=== PATIENT | female | born 1955 | race Caucasian/White ===

== ENCOUNTER 2017-08-12 19:50 | Outpatient (CLI) | payer OTHER ==
[~2017-08-12 19:50] MED LIST: ALPR.25T PO; ALPR.5T PO; ANTIBIOTIC FOR UTI; ASCO500T20 PO; ASCO500T6 PO; ASP81TEC PO; B-12 INJ; BIOT10TA PO; BIOTIN PO; CALC-656 PO; CALC600T12 PO; CEPH500C PO; CHOL10003 PO; CHOL500044 PO; CRAN1TAB5 PO; CYAN500T52 SL; DESV50TA PO; ENXP40I.4 SQ; ERGO400C PO; FISH1CAP15 PO; FRS325T PO; HYDR-3730 PO; HYDR25CA PO; LEVAQUIN 250 MG; MAGN250T7 PO; METO25TA PO; MULT-904 PO; MULT1TAB63; MULT1TAB69 PO; MULTIVITAMIN PO; NF-ESOM40C PO; NITR-65 PO; OMG1KC PO; POTA99TA21 PO; POTA99TA7 PO; SULF-222 PO; TR1O15 TOP; TYLENOL; VITA-185 PO; VITAMIN B-12 PO; VITAMIN C PO; biotin PO
== END 2017-08-13 06:20 | disposition home or self-care (01) ==
LOC: SLEEP 19:50
PROVIDERS: ATTEND Otolaryngology Otolaryngology/Facial Plastic Surgery
DX: G47.30 Sleep apnea, unspecified (principal); R06.83 Snoring
CPT/HCPCS: 95810

== ENCOUNTER → 2018-06-06 | Outpatient (CLI) | payer OTHER ==
[2018-06-06 09:28] LABS: HEMOGLOBIN 13.1 G/DL (11.5-16.0); MEAN PLATELET VOLUME 10.6 FL (7.4-10.4); RED BLOOD COUNT 4.66 10^6/uL (4.35-5.85); RED CELL DISTRIBUTION WIDTH 14.5 % (10.0-14.5); WHITE BLOOD COUNT 5.3 10^3/uL (4.3-11.0)
[2018-06-06 09:56] LABS: ALANINE AMINOTRANSFERASE 13 U/L (0-55); ALBUMIN 3.8 GM/DL (3.2-4.5); ALKALINE PHOSPHATASE 84 U/L (40-136); BILIRUBIN,TOTAL 0.6 MG/DL (0.1-1.0); BUN/CREATININE RATIO 15; CALCIUM 9.5 MG/DL (8.5-10.1); CARBON DIOXIDE 26 MMOL/L (21-32); CHLORIDE 108 MMOL/L (98-107); CREATININE SERUM 0.68 MG/DL (0.60-1.30); GFR ESTIMATED > 60; GLUCOSE 87 MG/DL (70-105); MAGNESIUM 2.1 MG/DL (1.8-2.4); SODIUM 141 MMOL/L (135-145)
[2018-06-06 10:17] LABS: FREE T4 (FREE THYROXINE) 1.02 NG/DL (0.70-1.48)
== END ==
LOC: LAB 09:02
PROVIDERS: ATTEND Family Medicine
DX: Z09 Encounter for follow-up examination after completed treatment for conditions other than malignant neoplasm (principal); Z98.84 Bariatric surgery status
CPT/HCPCS: 36415; 80053; 82306; 82607; 82728; 83540; 83735; 84134; 84425; 84439; 84443; 85027

== ENCOUNTER 2019-07-12 10:13 | Outpatient (CLI) | payer OTHER ==
[~2019-07-12] VITALS: Ht 160 cm; Wt 125.0 kg
== END 2019-07-12 10:15 | disposition home or self-care (01) ==
LOC: PREOP 10:13
PROVIDERS: ATTEND Surgery
DX: Z01.818 Encounter for other preprocedural examination (principal)

== ENCOUNTER 2019-07-18 06:44 | Day surgery (SDC) | payer OTHER ==
--- NOTE | 2019-07-10 06:14 | HISTORY AND PHYSICAL ---
DATE OF SERVICE: SURGERY DATE: 07/18/2019. ATTENDING PHYSICIAN: Erik Jolly DO HISTORY OF PRESENT ILLNESS: The patient is a 64-year-old female who is known to us. She was initially seen by us in May 2016 for a right lower quadrant abdominal pain. She did notice at that time a bulge in the right lower abdominal quadrant, had grown larger in size, become painful over time. She had had previous ventral abdominal incisional hernias that were repaired two other times that she can remember. She also has a very large midline abdominal incision. There was a CT scan performed, which did show a recurrent ventral abdominal incisional hernia. On 06/02/2016, the patient did undergo an open recurrent ventral abdominal incisional hernia repair with mesh. Findings were a large recurrent ventral abdominal incisional hernia with small bowel within the hernia sac as well as a mild amount of clear serous fluid. She was then seen approximately 2 years after her surgery where she had an open wound that had developed the abdominal wall overlying the previous incision from the hernia repair. At that time, she was started on antibiotics and instructed to proceed with daily dressing changes as well as keeping the area clean and dry. She then followed back up with us where this did seem to be healing and was decreasing in size. Since that time, she has presented back several times for the continued wound to not heal and has underwent conservative management with several different antibiotics as well as a silver nitrate to the wound as well as a debridement of the wound in the office. After the debridement, she did undergo a packing of wound for several days and each time with the antibiotics as well as silver nitrate in the debridement and did appear like a wound would heal; however, this would continue to become reinfected and then the sinus opening to reoccur. On today's visit, the patient reports that once again that approximately 4 to 5 days ago that the wound did become red and then started to become painful. She reports that she did call the office and was started on antibiotics and reports that this then started to drain; however, the redness has improved. She denied any fever, chills or any other symptoms. PAST MEDICAL HISTORY: Morbid obesity, obstructive sleep apnea, COPD, recurrent urinary tract infections, history of bradycardia, anxiety, depression. PAST SURGICAL HISTORY: Laparoscopic Connie-en-Y gastric bypass in 2008, x3 in 1977, 1978, 1979, incisional hernia repair x3, with the last one on 06/02/2016, cholecystectomy. ALLERGIES: No known drug allergies. MEDICATIONS: Multivitamin daily. SOCIAL HISTORY: Previously smoked half pack per week for 10 years. Rare for alcohol. FAMILY HISTORY: Brother and mother with diabetes, father with congestive heart failure. Brother with prostate cancer. Father and brother with hypertension. Vital signs stable. Current weight is 271.6 and 5 feet 3 inches. REVIEW OF SYSTEMS: Well-nourished female, in no acute distress. She is not experiencing any shortness of breath or difficulty breathing. No chest pain, palpitations or diaphoresis. No nausea, vomiting or abdominal pain. She does report a nonhealing wound of the anterior abdominal wall, which currently has clear yellowish drainage. No diarrhea or constipation. No red blood per rectum. No dark tarry stools. No fever or chills. No recent inadvertent weight loss. All other review of systems negative. PHYSICAL EXAMINATION: CHEST: Clear. Good breath sounds bilaterally. HEART: Regular, no murmurs. EXTREMITIES: No lower extremity edema. Negative Homans sign. HEENT: No scleral icterus. No cervical adenopathy. ABDOMEN: Soft, nontender, nondistended. There is a small sinus opening over the previous ventral abdominal incision with some mild erythema and does have a clear serous drainage noted. There does appear to be a good granulation tissue within the sinus tract. However, this does not appear to be healing. This is nontender to palpation. SKIN: Warm, dry and pink. NEUROLOGIC: Awake, alert, oriented x3. ASSESSMENT AND PLAN: A 64-year-old female with a nonhealing wound of the anterior abdominal wall that does have persistent recurrent infections. At this time, it was discussed with the patient about proceeding with exploration and debridement of the abdominal wound as well as possible explantation of the mesh due to the possibility of the mesh being chronically infected. We discussed with her that we have tried conservative management without any success and thus, we will need to proceed with this plan. The risks and benefits of the procedure as well as the procedure and home care instructions were explained to the patient. The patient verbalized understanding of instructions and agrees to this plan. At this time, we will proceed with exploration, debridement of the anterior abdominal wall wound as well as a possible explantation of an infected mesh. Job ID: [id number] DocumentID: [id number] Dictated Date: 07/08/2019 13:45:25 Manager Of Loss Prevention Operations Date: 07/08/2019 14:10:35 Dictated By: EKTA KEE APRN
[~2019-07-18] VITALS: Ht 160 cm; Wt 125.0 kg
[2019-07-18] VITALS (11 sets, daily range): BP systolic 122–194; BP diastolic 59–85
[2019-07-18] MEDS ORDERED: ceFAZolin 2 GM IV Premixed 50 ML IV ONE (07:00)
[2019-07-18] MEDS ORDERED: proPOfol 200 MG/20 ML (DIPRIVAN) VIAL IV ONE (07:24)
[2019-07-18] MEDS ORDERED: ONDANSETRON 4 MG/2 ML (SDV) Z0FRAN ONE (07:24)
[2019-07-18] MEDS ORDERED: LIDOCAINE PF 2% 5 ML (XYLOCAINE) VIAL ONE (07:24)
[2019-07-18] MEDS ORDERED: DEXAMETHASONE 10 MG/ML (DECADRON) 1 ML VIAL ONE (07:24)
[2019-07-18] MEDS ORDERED: fentaNYL INJECTION 100 MCG/2 ML AMP ONE ×2 (07:24→10:50)
[2019-07-18] MEDS ORDERED: MIDAZOLAM 2 MG/2 ML (VERSED) VIAL ONE (07:24)
[2019-07-18] MEDS ORDERED: CATHETER FLUSH 10 ML SYR IV PRN (07:30)
[2019-07-18] MEDS: LACTATED RINGERS 1,000 ML IV PRN ×2 (07:50→10:13)
--- NOTE | 2019-07-18 08:29 | Progress Note-Pre Operative ---
Pre-Operative Progress Note H&P Reviewed The H&P was reviewed, patient examined and no changes noted. Date Seen by Provider: Jul 18, 2019 Time Seen by Provider: 08:25 Date H&P Reviewed: Jul 18, 2019 Time H&P Reviewed: 08:20 Pre-Operative Diagnosis: Recurrent infection, non-healing wound of abd wall inc, poss infected mesh EKTA KEE APRN Jul 18, 2019 08:29
[2019-07-18] MEDS ORDERED: HYDR-3816 PO (08:31)
--- NOTE | 2019-07-18 08:31 | Discharge Inst-Surgical ---
D/C Lap Instructions-KIDO Reconcile Patient Problems Problems Reviewed?: Yes New, Converted, or Re-Newed RX: RX on Chart Follow Up Appt in 2 weeks Activity as tolerated No driving for 24 hours No driving while on pain medications Incentive Spirometry use every 2 hours while awake Regular Diet Symptoms to Report: Fever over 101 degree F, Nausea/Vomiting Infection Signs and Symptoms to report: Increased redness, Foul odor of wound, Increased drainage Bathing instructions: May shower Operative Area Clean/Dry; Keep incision clean/dry If any problems/questions: Contact your physician or go to Emergency Room EKTA KEE APRN Jul 18, 2019 08:31
[2019-07-18] MEDS ORDERED: SEVOFLURANE (ULTANE) 15 ML INHAL SOLN ONE ×7 (09:24→12:41)
[2019-07-18] MEDS ORDERED: BUP/EPI 0.5% 1:200,000 (SENSORCAINE) 30 ML VIAL ONE (09:38)
[2019-07-18] MEDS ORDERED: GLYCOPYRROLATE 0.2 MG/ML (ROBINUL) 2 ML VIAL ONE ×2 (09:47→10:40)
[2019-07-18] MEDS ORDERED: NEOSTIGMINE 3 MG/3 ML VIAL ONE (09:47)
[2019-07-18] MEDS ORDERED: ROCURONIUM 10 MG/ML 5 ML SYRINGE IV ONE (10:40)
[2019-07-18] MEDS ORDERED: KETAMINE/NaCl 50 MG/5 ML SYRINGE (ED ONLY) ONE (10:50)
[2019-07-18] MEDS ORDERED: NS IV 1000 ML 1,000 ML IV SCH (12:11)
--- NOTE | 2019-07-18 12:11 | Progress Note-Post Operative ---
Post-Operative Progess Note Surgeon (s)/Strand Galvanizer (s) Surgeon OMARI DONNELLY MD Strand Galvanizer: sarahi cornell BUILDING SERVICES COORDINATOR Pre-Operative Diagnosis Recurrent infection, non-healing wound of abd wall inc, poss infected mesh Post-Operative Diagnosis infected mesh x2, small bowel adhesions. Procedure & Operative Findings Date of Procedure 07/18/19 Procedure Performed/Findings mesh excisionx2 meshes, lysis of small bowel adhesions, segmental small bowel resection and anastamosis, repair recurrent ventral abd inc hernia. Anesthesia Type GET Estimated Blood Loss Estimated blood loss (mL): minimal Specimens/Packing Specimens Removed mesh x2, small bowel OMARI DONNELLY MD Jul 18, 2019 12:11
[2019-07-18] MEDS ORDERED: diphenhydrAMINE 50 MG/ML INJ (BENADRYL) IV PRN (12:15)
[2019-07-18] MEDS ORDERED: NALOXONE 0.4 MG/ML 1 ML (NARCAN) VIAL IV PRN (12:15)
[2019-07-18] MEDS ORDERED: ONDANSETRON 4 MG/2 ML (SDV) Z0FRAN IV PRN (12:15)
[2019-07-18] MEDS ORDERED: fentaNYL INJECTION 1,000 MCG in NS (IVPB) 80 ML IV SCH (12:15)
[2019-07-18] MEDS ORDERED: diphenhydrAMINE 50 MG/ML INJ (BENADRYL) IVP PRN (12:15)
[2019-07-18] MEDS ORDERED: oxyCODONE 5 MG/5 ML ORAL SOLN (roxiCODONE) 5 ML UDC PO PRN (12:15)
[2019-07-18] MEDS ORDERED: METOCLOPRAMIDE INJ 10 MG/2 ML (REGLAN) IV PRN (12:15)
[2019-07-18] MEDS ORDERED: morphine INJ 10 MG/ML 1ML (SYR OR VIAL) ONE (12:36)
[2019-07-18] MEDS ORDERED: HYDROmorphone 2 MG/ML VIAL (DILAUDID) IV ONE (12:45)
[2019-07-18] MEDS ORDERED: morphine INJ 10 MG/ML 1ML (SYR OR VIAL) IVP ONE (12:45)
[2019-07-18] MEDS ORDERED: ONDANSETRON 4 MG/2 ML (SDV) Z0FRAN IVP PRN (12:45)
[2019-07-18] MEDS: RT-ALBUTEROL SULF 2.5 MG/3 ML PRE-MIX VIAL INH SCH ×3 (15:07→22:15)
[2019-07-18] MEDS ORDERED: FLU QUADRIvalent (5+ YOA) 2019-2020 (AFLURIA) 0.5 ML IM ONE (15:15)
[2019-07-18] MEDS: metroNIDAZOLE 500MG/100ML IVPB 100 ML IV SCH ×2 (15:25→23:38)
[2019-07-18] MEDS: 1/2 NS W/KCL 20 MEQ/L 1,000 ML IV SCH ×2 (15:25→18:13)
--- NOTE | 2019-07-18 17:41 | OPERATIVE REPORT ---
DATE OF SERVICE: 07/18/2019 ATTENDING PRIMARY CARE PHYSICIAN: Erik Jolly DO PREOPERATIVE DIAGNOSIS: Chronically infected mesh. POSTOPERATIVE DIAGNOSES: Chronically infected mesh x2, extensive small bowel adhesions, recurrent ventral abdominal incisional hernia. PROCEDURE: Explantation of mesh x2, lysis of small bowel adhesions(120 minutes), small bowel resection and anastomosis, recurrent ventral abdominal incisional hernia repair primarily. SURGEON: Omari Donnelly MD FIBERGLASS ROLLER: Serafin Junior APRN ANESTHESIA: General endotracheal. ESTIMATED BLOOD LOSS: 100 mL. DISPOSITION: The patient tolerated the procedure well. INDICATIONS: The patient is a 64-year-old female with a history of morbid obesity and multiple medical comorbidities related to obesity. She underwent what appears to be an open Connie-en-Y gastric bypass and states that she did lose weight initially; however, has regained a significant amount of weight back. She has a large midline laparotomy incision. She has undergone a previous hernia repair in the past; however, had reoccurrence. We had repaired this in 2016. She reports that she has had 3 to 4 episodes of inflammation, redness and drainage around the incision site over the past three years. These were treated with antibiotics; however, she would have recurrence. Her signs and symptoms were consistent with an infected mesh. DESCRIPTION OF PROCEDURE: The patient was brought to the operating room, laid supine on the table. After adequate IV pain and sedative medications and general endotracheal intubation, the abdomen was prepped and draped in standard surgical fashion. A 0.5% Marcaine with epinephrine was used to anesthetize the overlying skin in the previous right lateral incision. We opened the skin using a 15 blade. The subcutaneous tissue was then dissected down to the level of the scar tissue and mesh. We then proceeded with meticulous dissection of the mesh, try to preserve as much scar tissue as possible for primary repair. The entire hernia sac was then dissected out using electrocautery as well as Metzenbaum scissors. Once the edges identified and opened, we then proceeded with lysis of adhesions of omentum and small bowel along the mesh. Throughout the tedious process, another mesh was encountered from a previous hernia repair and this was excised in a similar manner. The small bowel was then eviscerated out of the abdomen and examined and there was a significant amount of serosal tears and openings due to the extensive lysis of adhesions off the mesh. It was decided to resect this segment due to the extensive nature of the serosal tears and openings and proceed with [id number] anastomosis, which we performed using a BASILIO 55 mm blue load waldo. The mesentery was then resected using Sonicision. The mesentery was then reapproximated using 3-0 running silk suture. Good hemostasis was observed. The small bowel was then placed back into the abdominal cavity. Good hemostasis was observed. We then proceeded with repair of the recurrent ventral abdominal incisional hernia. With the scar tissue as well as fascia dissected out from the explantation of meshes, we had a good amount of scar tissue as well as fascia to close primarily without any tension. We proceeded with repair of the hernia using a #1 PDS looped running suture transversely approximating the scar tissue and fascia without any tension. Good hemostasis was observed. The subcutaneous tissue was reapproximated using 3-0 Vicryl interrupted sutures. Skin was closed using skin waldo. The wound was then cleaned and covered with sterile dressing. The patient tolerated the procedure well. We will admit her to the floor and proceed with DVT prophylaxis with calf SCDs, early ambulation as well as Lovenox injections. We will also proceed with pain control with a MACHINE GRINDER pump. When she does have some bowel function, we will start a clear liquid diet and advance as tolerated. Job ID: [id number] DocumentID: [id number] Dictated Date: 07/18/2019 12:27:37 Cotton Breeder Date: 07/18/2019 17:40:42 Dictated By: OMARI DONNELLY MD [facility]
[2019-07-18] MEDS: ceFAZolin 2 GM IV Premixed 50 ML IV SCH (18:05)
[2019-07-18] MEDS: ONDANSETRON 4 MG/2 ML (SDV) Z0FRAN IVP SCH ×2 (18:07→23:37)
[2019-07-18] MEDS: METOCLOPRAMIDE INJ 10 MG/2 ML (REGLAN) IVP SCH ×2 (18:07→23:38)
--- NOTE | 2019-07-18 19:08 | Consultation ---
History of Present Illness History of Present Illness Patient Consulted On(carlie/time) 07/18/19 18:55 Time Seen by Provider: 19:04 History of Present Illness Patient had a ventral hernia today for nonhealing wound. Physical is a third hernia surgery. Patient has a history of bradycardia Patient's blood pressure elevated this evening. Patient's blood pressure taken by manual cuff was 156/80. Previous surgeries gastric bypass in 2008, 3 ventral hernias, 3 C-sections, and gallbladder. Patient in sinus rhythm now with no bradycardia. Patient has a history of bradycardia and has a monitor on Allergies and Home Medications Allergies Coded Allergies: No Known Drug Allergies (Unverified , 07/12/19) Home Medications Ascorbic Acid 500 Mg Tablet, 500 MG PO DAILY PRN for FOR COLDS, (Reported) Biotin 10 Mg Tablet, 10 MG PO DAILY, (Reported) Calcium Carbonate 600 Mg Tablet, 600 MG PO DAILY, (Reported) Cholecalciferol (Vitamin D3) 5,000 Unit Tablet, 5,000 UNIT PO DAILY, (Reported) Cyanocobalamin (Vitamin B-12) 500 Mcg Tab.subl, 500 MCG SL DAILY, (Reported) Hydrocodone/Acetaminophen 1 Each Tablet, 1-2 TAB PO Q4H Prescribed by: EKTA KEE on 07/18/19 0831 Multivitamin 1 Each Tablet, 1 TAB PO DAILY, (Reported) Potassium Gluconate 99 Mg Tablet, 99 MG PO DAILY PRN for CRAMPS, (Reported) Patient Home Medication List Home Medication List Reviewed: Yes Past Vsrrggg-Zbcxpy-Nlkfxf Hx Past Med/Social Hx: Reviewed Nursing Past Med/Soc Hx Patient Social History Alcohol Use: Occasionally Uses Number of Drinks Today: II Alcohol Beverage of Choice: Other Recreational Drug Use: No Smoking Status: Never a Smoker Type Used: Cigarettes 2nd Hand Smoke Exposure: No Recent Foreign Travel: No Contact w/Someone Who Travel: No Recent Infectious Disease Expo: No Recent Hopitalizations: No Immunizations Up To Date Date of Influenza Vaccine: Nov 07, 2012 Seasonal Allergies Seasonal Allergies: No Past Medical History Surgeries: Yes (GASTRIC BYPASS, HERNIA (x2), X 3, HEART CATH (-)) Section, Gallbladder Respiratory: Yes (CPAP) Sleep Apnea, COPD Currently Using CPAP: No Cardiac: Yes (Hx Bradycardia as Asymptomatic Sick Sinus Syndrome) Neurological: No Reproductive Disorders: No LIFE ENRICHMENT SPECIALIST History: Menopausal Sexually Transmitted Disease: No Genitourinary: No Gastrointestinal: Yes Abdominal Hernia Musculoskeletal: Yes (MILD) Arthritis Endocrine: No HEENT: Yes (GLASSES, PARTIAL DENTURES) Loss of Vision: Denies Hearing Impairment: Denies Cancer: No Psychosocial: Yes Anxiety Integumentary: No Blood Disorders: No Adverse Reaction/Blood Tranf: No (N/A) Family Medical History Alcoholism Arthritis Atherosclerosis Cancer G8 BROTHER Chest pain 19 FATHER Congenital heart disease 19 FATHER Congestive heart failure 19 MOTHER G8 BROTHER Diabetes mellitus Family history: Arthritis G8 BROTHER Family history: Cardiovascular disease 19 FATHER Family history: Diabetes mellitus 19 MOTHER G8 BROTHER G8 BROTHER G8 BROTHER G8 BROTHER Family history: Hypertension 19 FATHER 19 MOTHER Family history: Osteoporosis 19 MOTHER G8 BROTHER History of - respiratory disease G8 BROTHER Hypertension Myocardial infarction 19 FATHER Myocardial infarction 19 FATHER Prostate cancer G8 BROTHER Psychosocial problem Visual disorder No Pertinent Family Hx Review of Systems-General Constitutional: no symptoms reported EENTM: no symptoms reported Respiratory: no symptoms reported Cardiovascular: other (Bradycardia history, hypertension now) Gastrointestinal: no symptoms reported Genitourinary: no symptoms reported : No Physical Exam-General Problems Physical Exam Vital Signs Vital Signs - First Documented 07/18/19 07:00 Temp 35.5 Pulse 46 Resp 16 B/P (MAP) 150/61 (90) Pulse Ox 94 O2 Delivery Room Air Capillary Refill : Less Than 3 Seconds General Appearance: WD/WN Eyes: Bilateral Eye Normal Inspection HEENT: normal ENT inspection Neck: non-tender, full range of motion Respiratory: lungs clear, no respiratory distress, no accessory muscle use Cardiovascular: regular rate, rhythm, no murmur Gastrointestinal: non tender Assessment/Plan Assessment/Plan Admission Diagnosis/Plan Nonhealing wound. Ventral hernia. Hypertension. Bradycardia Clinical Quality Measures DVT/VTE Risk/Contraindication: Risk Factor Score Per Nursin RFS Level Per Nursing on Admit: 4+=Very High AURELIA ALVAREZ DO Jul 18, 2019 19:08
[2019-07-18 20:04] LABS: HEMOGLOBIN 12.8 G/DL (11.5-16.0); MEAN PLATELET VOLUME 11.4 FL (7.4-10.4); WHITE BLOOD COUNT 10.3 10^3/uL (4.3-11.0)
[2019-07-18 20:14] LABS: CARBON DIOXIDE 22 MMOL/L (21-32); CHLORIDE 107 MMOL/L (98-107); GLUCOSE 155 MG/DL (70-105); POTASSIUM 4.4 MMOL/L (3.6-5.0); SODIUM 144 MMOL/L (135-145)
[2019-07-18 20:26] LABS: BUN/CREATININE RATIO 11; CREATININE SERUM 0.74 MG/DL (0.60-1.30); GFR ESTIMATED > 60
[2019-07-18] MEDS: ENOXAPARIN 40 MG/0.4 ML (LOVENOX) SYR SC SCH (21:53)
[2019-07-19] VITALS: BP 141/63
[2019-07-19] MEDS: ceFAZolin 2 GM IV Premixed 50 ML IV SCH ×2 (01:13→09:26)
[2019-07-19] MEDS: 1/2 NS W/KCL 20 MEQ/L 1,000 ML IV SCH (01:14)
[2019-07-19] MEDS: RT-ALBUTEROL SULF 2.5 MG/3 ML PRE-MIX VIAL INH SCH ×3 (02:17→11:05)
[2019-07-19 04:00] VITALS: BP 143/65
[2019-07-19 05:18] LABS: HEMOGLOBIN 12.1 G/DL (11.5-16.0); MEAN PLATELET VOLUME 11.6 FL (7.4-10.4); RED CELL DISTRIBUTION WIDTH 13.9 % (10.0-14.5); WHITE BLOOD COUNT 10.1 10^3/uL (4.3-11.0)
[2019-07-19 05:32] LABS: BUN/CREATININE RATIO 11; CALCIUM 8.6 MG/DL (8.5-10.1); CARBON DIOXIDE 24 MMOL/L (21-32); CHLORIDE 109 MMOL/L (98-107); GFR ESTIMATED > 60; GLUCOSE 112 MG/DL (70-105); POTASSIUM 4.3 MMOL/L (3.6-5.0); SODIUM 143 MMOL/L (135-145)
[2019-07-19] MEDS: metroNIDAZOLE 500MG/100ML IVPB 100 ML IV SCH (06:08)
[2019-07-19] MEDS: METOCLOPRAMIDE INJ 10 MG/2 ML (REGLAN) IVP SCH ×2 (06:08→12:16)
[2019-07-19] MEDS: ONDANSETRON 4 MG/2 ML (SDV) Z0FRAN IVP SCH ×2 (06:08→12:16)
--- NOTE | 2019-07-19 06:57 | Anesthesia-General Post-Op ---
General Patient Condition Mental Status/LOC: Same as Preop Cardiovascular: Satisfactory Nausea/Vomiting: Absent Respiratory: Satisfactory Pain: Controlled Complications: Absent Post Op Complications Complications None Follow Up Care/Instructions Patient Instructions None needed. Anesthesia/Patient Condition Patient Condition Patient is doing well, no complaints, stable vital signs, no apparent adverse anesthesia problems. No complications reported per nursing. JULIO C SALGUERO CRNA Jul 19, 2019 06:57
[2019-07-19 08:00] VITALS: BP 125/58
--- NOTE | 2019-07-19 08:02 | Progress Note ---
Subjective Time Seen by a Provider: 07:57 Subjective/Events-last exam Patient feeling good this morning. Patient has no complaints. Blood pressure good today. Patient in sinus rhythm at 60 Objective Exam Vital Signs Date Time Temp Pulse Resp B/P (MAP) Pulse Ox O2 Delivery O2 Flow Rate FiO2 07/19/19 07:12 99 Nasal Cannula 2.00 07/19/19 07:00 56 07/19/19 04:00 36.7 55 16 143/65 (91) 97 Nasal Cannula 2.00 07/19/19 02:18 98 Room Air 07/19/19 00:53 56 07/19/19 00:00 36.5 63 20 141/63 (89) 94 Nasal Cannula 2.00 07/18/19 22:16 90 Room Air 07/18/19 21:00 Nasal Cannula 2.00 07/18/19 19:30 97 Nasal Cannula 07/18/19 19:23 36.4 61 20 194/74 (114) 95 Nasal Cannula 2.00 07/18/19 19:02 63 07/18/19 16:44 36.0 62 20 182/77 (112) 95 Nasal Cannula 2.00 07/18/19 15:27 95 Nasal Cannula 2.00 07/18/19 14:33 51 07/18/19 14:00 98 Nasal Cannula 2.00 07/18/19 13:30 OxyMask 2 07/18/19 13:30 22 140/63 (88) 95 Nasal Cannula 2 07/18/19 13:30 36.0 56 16 150/72 (98) 96 Nasal Cannula 2.00 07/18/19 13:25 OxyMask 2 07/18/19 13:20 18 140/63 (88) 95 OxyMask 2 07/18/19 13:10 OxyMask 2 07/18/19 13:10 20 139/59 (85) 95 OxyMask 2 07/18/19 13:00 18 143/63 (89) 95 OxyMask 3 07/18/19 12:55 OxyMask 4 07/18/19 12:50 18 132/59 (83) 95 OxyMask 4 07/18/19 12:40 OxyMask 8 07/18/19 12:40 20 128/65 (86) 95 OxyMask 8 07/18/19 12:30 22 122/85 (97) 95 OxyMask 10 07/18/19 12:26 36.2 20 124/70 (88) 95 OxyMask 10 07/18/19 12:26 OxyMask 10 I & O 07/19/19 06:59 Intake Total 1950 ml Output Total 3125 ml Balance -1175 ml Capillary Refill : Less Than 3 Seconds General Appearance: No Apparent Distress, WD/WN HEENT: Normal ENT Inspection Neck: Full Range of Motion, Normal Inspection Respiratory: Lungs Clear, No Accessory Muscle Use Cardiovascular: Regular Rate, Rhythm Gastrointestinal: non tender Results Lab Laboratory Tests 07/18/19 19:30 07/19/19 04:25 Laboratory Tests 07/18/19 16:27: Glucometer 143H 07/18/19 19:30: White Blood Count 10.3, Red Blood Count 4.59, Hemoglobin 12.8, Hematocrit 41, Mean Corpuscular Volume 88, Mean Corpuscular Hemoglobin 28, Mean Corpuscular Hemoglobin Concent 32, Red Cell Distribution Width 14.0, Platelet Count 214, Mean Platelet Volume 11.4H, Sodium Level 144, Potassium Level 4.4, Chloride Level 107, Carbon Dioxide Level 22, Anion Gap 15H, Blood Urea Nitrogen 8, Creatinine 0.74, Estimat Glomerular Filtration Rate > 60, BUN/Creatinine Ratio 11, Glucose Level 155H, Calcium Level 9.0 07/18/19 20:08: Glucometer 128H 07/19/19 01:09: Glucometer 118H 07/19/19 04:25: White Blood Count 10.1, Red Blood Count 4.34L, Hemoglobin 12.1, Hematocrit 38, Mean Corpuscular Volume 88, Mean Corpuscular Hemoglobin 28, Mean Corpuscular Hemoglobin Concent 32, Red Cell Distribution Width 13.9, Platelet Count 207, Mean Platelet Volume 11.6H, Sodium Level 143, Potassium Level 4.3, Chloride Level 109H, Carbon Dioxide Level 24, Anion Gap 10, Blood Urea Nitrogen 8, Creatinine 0.70, Estimat Glomerular Filtration Rate > 60, BUN/Creatinine Ratio 11, Glucose Level 112H, Calcium Level 8.6 07/19/19 04:58: Glucometer 115H Assessment/Plan Assessment/Plan Assess & Plan/Chief Complaint Nonhealing wound. Ventral hernia. Hypertension. Bradycardia. . 07/19/19. Postop day 1. Patient doing well. Patient voicing no complaints. Bradycardia on the control. Hypertension better. Patient states she's not passing any gas yet Clinical Quality Measures DVT/VTE Risk/Contraindication: Risk Factor Score Per Nursin RFS Level Per Nursing on Admit: 4+=Very High AURELIA ALVAREZ DO Jul 19, 2019 08:02
[2019-07-19] MEDS ORDERED: PANTOPRAZOLE 40 MG (PROTONIX) VIAL IV SCH (09:00)
[2019-07-19] MEDS ORDERED: SENNA W/DOCUSATE (SENOKOT S) TABLET PO SCH (09:00)
[2019-07-19] MEDS: ENOXAPARIN 40 MG/0.4 ML (LOVENOX) SYR SC SCH (09:26)
--- NOTE | 2019-07-19 10:14 | Progress Note ---
Subjective Date Seen by a Provider: Jul 19, 2019 Time Seen by a Provider: 10:00 Subjective/Events-last exam doing well. tolerating clears. ambulating well. had BM today. no fever/chills. Objective Exam Vital Signs Date Time Temp Pulse Resp B/P (MAP) Pulse Ox O2 Delivery O2 Flow Rate FiO2 07/19/19 08:00 36.4 60 22 125/58 (80) 96 Nasal Cannula 2.00 07/19/19 07:12 99 Nasal Cannula 2.00 07/19/19 07:00 56 07/19/19 04:00 36.7 55 16 143/65 (91) 97 Nasal Cannula 2.00 07/19/19 02:18 98 Room Air 07/19/19 00:53 56 07/19/19 00:00 36.5 63 20 141/63 (89) 94 Nasal Cannula 2.00 07/18/19 22:16 90 Room Air 07/18/19 21:00 Nasal Cannula 2.00 07/18/19 19:30 97 Nasal Cannula 07/18/19 19:23 36.4 61 20 194/74 (114) 95 Nasal Cannula 2.00 07/18/19 19:02 63 07/18/19 16:44 36.0 62 20 182/77 (112) 95 Nasal Cannula 2.00 07/18/19 15:27 95 Nasal Cannula 2.00 07/18/19 14:33 51 07/18/19 14:00 98 Nasal Cannula 2.00 07/18/19 13:30 OxyMask 2 07/18/19 13:30 22 140/63 (88) 95 Nasal Cannula 2 07/18/19 13:30 36.0 56 16 150/72 (98) 96 Nasal Cannula 2.00 07/18/19 13:25 OxyMask 2 07/18/19 13:20 18 140/63 (88) 95 OxyMask 2 07/18/19 13:10 OxyMask 2 07/18/19 13:10 20 139/59 (85) 95 OxyMask 2 07/18/19 13:00 18 143/63 (89) 95 OxyMask 3 07/18/19 12:55 OxyMask 4 07/18/19 12:50 18 132/59 (83) 95 OxyMask 4 07/18/19 12:40 OxyMask 8 07/18/19 12:40 20 128/65 (86) 95 OxyMask 8 07/18/19 12:30 22 122/85 (97) 95 OxyMask 10 07/18/19 12:26 36.2 20 124/70 (88) 95 OxyMask 10 07/18/19 12:26 OxyMask 10 I & O 07/19/19 07:00 Intake Total 1950 ml Output Total 3125 ml Balance -1175 ml Capillary Refill : Less Than 3 Seconds General Appearance: No Apparent Distress HEENT: PERRL/EOMI Neck: Full Range of Motion Respiratory: Chest Non Tender, Lungs Clear, Normal Breath Sounds Cardiovascular: Regular Rate, Rhythm Gastrointestinal: normal bowel sounds, soft, other (wound clean/dry) Extremity: Normal Capillary Refill Neurologic/Psychiatric: Alert, Oriented x3 Skin: Normal Color Lymphatic: No Adenopathy Results Lab Laboratory Tests 07/18/19 16:27: Glucometer 143H 07/18/19 19:30: White Blood Count 10.3, Red Blood Count 4.59, Hemoglobin 12.8, Hematocrit 41, Mean Corpuscular Volume 88, Mean Corpuscular Hemoglobin 28, Mean Corpuscular Hemoglobin Concent 32, Red Cell Distribution Width 14.0, Platelet Count 214, Mean Platelet Volume 11.4H, Sodium Level 144, Potassium Level 4.4, Chloride Level 107, Carbon Dioxide Level 22, Anion Gap 15H, Blood Urea Nitrogen 8, Creatinine 0.74, Estimat Glomerular Filtration Rate > 60, BUN/Creatinine Ratio 11, Glucose Level 155H, Calcium Level 9.0 07/18/19 20:08: Glucometer 128H 07/19/19 01:09: Glucometer 118H 07/19/19 04:25: White Blood Count 10.1, Red Blood Count 4.34L, Hemoglobin 12.1, Hematocrit 38, Mean Corpuscular Volume 88, Mean Corpuscular Hemoglobin 28, Mean Corpuscular Hemoglobin Concent 32, Red Cell Distribution Width 13.9, Platelet Count 207, Mean Platelet Volume 11.6H, Sodium Level 143, Potassium Level 4.3, Chloride Level 109H, Carbon Dioxide Level 24, Anion Gap 10, Blood Urea Nitrogen 8, Creatinine 0.70, Estimat Glomerular Filtration Rate > 60, BUN/Creatinine Ratio 11, Glucose Level 112H, Calcium Level 8.6 07/19/19 04:58: Glucometer 115H 07/19/19 08:24: Glucometer 224H Assessment/Plan Assessment/Plan Assess & Plan/Chief Complaint s/p excision infected mesh x2, small bowel segmental resection. ambulating well and having bowel fxn. tolerating clears. pain controlled. will advance to dys3 diet and start PO meds. will need cardiology f/u Clinical Quality Measures DVT/VTE Risk/Contraindication: Risk Factor Score Per Nursin RFS Level Per Nursing on Admit: 4+=Very High OMARI DONNELLY MD Jul 19, 2019 10:14
[2019-07-19 12:00] VITALS: BP 154/66
[2019-07-19] MEDS ORDERED: FLU QUADRIvalent (5+ YOA) 2019-2020 (AFLURIA) 0.5 ML IM ONE (12:07)
[2019-07-19] MEDS ORDERED: ONDANSETRON 4 MG/2 ML (SDV) Z0FRAN IVP PRN (12:15)
[2019-07-19] MEDS ORDERED: METOCLOPRAMIDE INJ 10 MG/2 ML (REGLAN) IVP PRN (12:15)
--- NOTE | 2019-07-19 13:38 | NUR ---
RD ASSESSMENT PMHx: RUBEN; COPD; UTI; Connie-en-Y (2008) PT INTERACTION: Pt was awake and pleasant during nutrition assessment. Pt states current appetite is "fine" and has been for sometime. Pt states following a regular diet at home, and has no current issues with chewing/swallowing at this time. Pt states no recent issues with n/v/c/d at this time. Pt states last BM was 07/19 and it was loose stools. Pt states no recent wt changes. Note unable to determine recent wt hx, per chart review. Note pt has abd wound, per chart review. Upon visual exam, pt appears to be well nourished with no visible signs of muscle/fat wasting and BMI of 48.8. ABNORMAL NUTRITION-RELATED LAB VALUES: glu 112 (H); Cl 109 (H) Est. kcal needs: 4329-2657 kcal (15-18 kcal/kg) Est. Pro needs: 125-150 g Pro (1.0-1.2 g Pro/kg) PES STATEMENT: Inadequate protein intake (NI-5.6.1) related to increased protein needs as evidenced by wound (abd) INTERVENTION: Continue with current diet order of DYS3 Advanced diet. Add Ensure HP to meals BID. Provides 160 kcal and 16 g Pro per serving, for perceived benefit to wound healing. MONITOR/EVALUATE: PO Intake; Supplement Tolerance; Wound Status; Plan of Care; Hydration Status; Weight Status; Lab Values Haven Suárez, MS, RD, LD Ext. [phone]
[2019-07-19 14:40] VITALS: BP 154/66
== END 2019-07-19 14:30 | disposition home or self-care (01) ==
LOC: SDC 06:44 → 4TH 13:20 → SDC 07-19 14:30
PROVIDERS: ATTEND Surgery
DX: K43.2 Incisional hernia without obstruction or gangrene (principal); K66.0 Peritoneal adhesions (postprocedural) (postinfection); K52.9 Noninfective gastroenteritis and colitis, unspecified; L02.211 Cutaneous abscess of abdominal wall; E66.01 Morbid (severe) obesity due to excess calories; Z68.42 Body mass index [BMI] 45.0-49.9, adult; G47.33 Obstructive sleep apnea (adult) (pediatric); J44.9 Chronic obstructive pulmonary disease, unspecified; N39.0 Urinary tract infection, site not specified; F41.9 Anxiety disorder, unspecified; F32.9 Major depressive disorder, single episode, unspecified; Z90.49 Acquired absence of other specified parts of digestive tract; Z87.891 Personal history of nicotine dependence; Z83.3 Family history of diabetes mellitus; Z82.49 Family history of ischemic heart disease and other diseases of the circulatory system; Z80.42 Family history of malignant neoplasm of prostate; Z79.899 Other long term (current) drug therapy
CPT/HCPCS: 36415; 80048; 82962; 85027; 87081; 88300; 88304; 88307; 93005; 94640; 94664; 94760

== ENCOUNTER 2019-07-27 18:22 | Emergency (ER) | payer OTHER ==
[~2019-07-27] VITALS: Ht 160 cm; Wt 122.1 kg
[~2019-07-27 18:22] MED LIST changes: +HYDR-3816 PO
--- NOTE | 2019-07-27 18:40 | ED Integumentary General ---
General Chief Complaint: Skin/Wound Problems Stated Complaint: REDNESS AROUND INCISION Nursing Triage Note: Pt to ED with concern that hernia surgery incision is infected. Pt reports having surgery with Dr. Abbasi on last week. Incision is hot and red around waldo. Pt reports pain to area. Source: patient Exam Limitations: no limitations History of Present Illness Date Seen by Provider: Jul 27, 2019 Time Seen by Provider: 18:39 Initial Comments To ER with redness around her incision, she had mesh removal and hernia repair here by Dr. Abbasi on 07/18/19, about 2-3 days ago she noticed some redness around this. Timing/Duration: just prior to arrival Severity: moderate Associated Symptoms: denies symptoms Allergies and Home Medications Allergies Coded Allergies: No Known Drug Allergies (Unverified , 07/12/19) Home Medications Ascorbic Acid 500 Mg Tablet, 500 MG PO DAILY PRN for FOR COLDS, (Reported) Biotin 10 Mg Tablet, 10 MG PO DAILY, (Reported) Calcium Carbonate 600 Mg Tablet, 600 MG PO DAILY, (Reported) Cholecalciferol (Vitamin D3) 5,000 Unit Tablet, 5,000 UNIT PO DAILY, (Reported) Clindamycin HCl 300 Mg Capsule, 300 MG PO TID Prescribed by: TING HERNANDEZ on 07/27/192005 Cyanocobalamin (Vitamin B-12) 500 Mcg Tab.subl, 500 MCG SL DAILY, (Reported) Hydrocodone/Acetaminophen 1 Each Tablet, 1-2 TAB PO Q4H Prescribed by: EKTA KEE on 07/18/19 0831 Multivitamin 1 Each Tablet, 1 TAB PO DAILY, (Reported) Potassium Gluconate 99 Mg Tablet, 99 MG PO DAILY PRN for CRAMPS, (Reported) Patient Home Medication List Home Medication List Reviewed: Yes Review of Systems Review of Systems Constitutional: see HPI; No chills, No fever EENTM: see HPI Respiratory: no symptoms reported Cardiovascular: no symptoms reported Genitourinary: no symptoms reported Musculoskeletal: no symptoms reported Skin: no symptoms reported Psychiatric/Neurological: No Symptoms Reported Endocrine: No Symptoms Reported Hematologic/Lymphatic: No Symptoms Reported Past Suxgxzw-Xnkhvi-Xauhpk Hx Patient Social History Alcohol Beverage of Choice: Other Type Used: Cigarettes 2nd Hand Smoke Exposure: No Recent Foreign Travel: No Contact w/Someone Who Travel: No Recent Infectious Disease Expo: No Recent Hopitalizations: No Immunizations Up To Date Date of Influenza Vaccine: Nov 07, 2012 Seasonal Allergies Seasonal Allergies: No Past Medical History Surgeries: Yes (GASTRIC BYPASS, HERNIA (x2), X 3, HEART CATH (-)) Section, Gallbladder Respiratory: Yes (CPAP) Sleep Apnea, COPD Currently Using CPAP: No Cardiac: Yes (Hx Bradycardia as Asymptomatic Sick Sinus Syndrome) Neurological: No 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 Sexually Transmitted Disease: No Genitourinary: No Gastrointestinal: Yes Abdominal Hernia Musculoskeletal: Yes (MILD) Arthritis Endocrine: No HEENT: Yes (GLASSES, PARTIAL DENTURES) Loss of Vision: Denies Hearing Impairment: Denies Cancer: No Psychosocial: Yes Anxiety Integumentary: No Blood Disorders: No Adverse Reaction/Blood Tranf: No (N/A) Family Medical History Alcoholism Arthritis Atherosclerosis Cancer G8 BROTHER Chest pain 19 FATHER Congenital heart disease 19 FATHER Congestive heart failure 19 MOTHER G8 BROTHER Diabetes mellitus Family history: Arthritis G8 BROTHER Family history: Cardiovascular disease 19 FATHER Family history: Diabetes mellitus 19 MOTHER G8 BROTHER G8 BROTHER G8 BROTHER G8 BROTHER Family history: Hypertension 19 FATHER 19 MOTHER Family history: Osteoporosis 19 MOTHER G8 BROTHER History of - respiratory disease G8 BROTHER Hypertension Myocardial infarction 19 FATHER Myocardial infarction 19 FATHER Prostate cancer G8 BROTHER Psychosocial problem Visual disorder No Pertinent Family Hx Physical Exam Vital Signs Vital Signs - First Documented 07/27/19 18:23 Temp 37.0 Pulse 66 Resp 15 B/P (MAP) 143/54 (83) Pulse Ox 98 O2 Delivery Room Air Capillary Refill : Less Than 3 Seconds General Appearance: WD/WN, no apparent distress Neck: non-tender, full range of motion Respiratory: no respiratory distress, no accessory muscle use Gastrointestinal: normal bowel sounds, soft, other (midline abdominal incision closed with waldo which are still intact, there is a minute amount of serosanguineous drainage from the middle of this, there is about 6 cm of erythema extending superiorly and inferiorly from this incision. I'm unable to express any material with pressing around the incision.) Neurologic/Psychiatric: alert, normal mood/affect, oriented x 3 Skin: normal color, warm/dry Procedures/Interventions I&D : Packing/Drain: Idoform 1 Progress After speaking with Dr. Harrison, he recommended removing a few of the waldo, the wound edges, evacuating the fluid collection irrigating and packing. I did this, 6 waldo were removed, 1% lidocaine without epinephrine was injected locally at the incision edges and curved hemostats were used to gently separate the skin, cloudy fluid was suctioned out using Hastings suction totaling 120 mL. Wound was then irrigated with 60 mL of chlorhexidine/saline solution, wound edges were left open and his cavity was packed with 1 inch plain packing and covered with gauze. Patient tolerated very well. Progress/Results/Core Measures Results/Orders Lab Results Laboratory Tests Test 07/27/19 18:43 Range/Units White Blood Count 8.6 4.3-11.0 10^3/uL Red Blood Count 4.15 L 4.35-5.85 10^6/uL Hemoglobin 11.5 11.5-16.0 G/DL Hematocrit 36 35-52 % Mean Corpuscular Volume 87 80-99 FL Mean Corpuscular Hemoglobin 28 25-34 PG Mean Corpuscular Hemoglobin Concent 32 32-36 G/DL Red Cell Distribution Width 13.6 10.0-14.5 % Platelet Count 330 130-400 10^3/uL Mean Platelet Volume 10.6 H 7.4-10.4 FL Neutrophils (%) (Auto) 76 H 42-75 % Lymphocytes (%) (Auto) 16 12-44 % Monocytes (%) (Auto) 7 0-12 % Eosinophils (%) (Auto) 1 0-10 % Basophils (%) (Auto) 0 0-10 % Neutrophils # (Auto) 6.5 1.8-7.8 X 10^3 Lymphocytes # (Auto) 1.3 1.0-4.0 X 10^3 Monocytes # (Auto) 0.6 0.0-1.0 X 10^3 Eosinophils # (Auto) 0.1 0.0-0.3 10^3/uL Basophils # (Auto) 0.0 0.0-0.1 10^3/uL Sodium Level 142 135-145 MMOL/L Potassium Level 3.7 3.6-5.0 MMOL/L Chloride Level 106 98-107 MMOL/L Carbon Dioxide Level 23 21-32 MMOL/L Anion Gap 13 5-14 MMOL/L Blood Urea Nitrogen 7 7-18 MG/DL Creatinine 0.71 0.60-1.30 MG/DL Estimat Glomerular Filtration Rate > 60 BUN/Creatinine Ratio 10 Glucose Level 99 70-105 MG/DL Calcium Level 9.0 8.5-10.1 MG/DL My Orders Orders - TING HERNANDEZ APRN Cbc With Automated Diff (07/27/19 18:37) Basic Metabolic Panel (07/27/19 18:37) Ed Iv/Invasive Line Start (07/27/19 18:37) Ct Abdomen/Pelvis W (07/27/19 18:37) Iohexol Injection (Omnipaque 350 Mg/Ml 1 (07/27/19 18:45) Received Contrast (Hold Metformin- Contr (07/27/19 18:45) Ns (Ivpb) (Sodium Chloride 0.9% Ivpb Bag (07/27/19 18:45) Fentanyl Injection (Sublimaze Injection (07/27/19 19:37) Wound Culture (07/27/19 20:00) Clindamycin 900 Mg/50 Ml Ivpb (Cleocin P (07/27/19 20:00) Medications Given in ED Current Medications Medications Dose Ordered Sig/Garth Route Start Time Stop Time Status Last Admin Dose Admin Fentanyl Citrate 100 mcg STK-MED ONCE .ROUTE 07/27/19 19:37 07/27/19 19:38 DC 07/27/19 19:39 50 MCG Iohexol 100 ml ONCE ONCE IV 07/27/19 18:45 07/27/19 18:55 DC 07/27/19 19:16 100 ML Sodium Chloride 100 ml ONCE ONCE IV 07/27/19 18:45 07/27/19 18:55 DC 07/27/19 19:16 80 ML Vital Signs/I&O 07/27/19 18:23 Temp 37.0 Pulse 66 Resp 15 B/P (MAP) 143/54 (83) Pulse Ox 98 O2 Delivery Room Air Blood Pressure Mean: 83 POS Diagnostic Imaging Diagonstic Imaging: CT Comments the abdomen and pelvis after the uneventful administration of intravenous contrast. All CT scans use one or more of the following dose optimizing techniques: automated exposure control, MA and/or KvP adjustment based on a patient size and exam type, or iterative reconstruction. HISTORY: Recent surgery with diarrhea and concern for infection COMPARISON: 06/01/2016 FINDINGS: Limited views of the lower thorax are unremarkable. The liver is normal without focal lesion. There is no biliary ductal dilation. Gallbladder is surgically absent. Pancreas is normal. Spleen is normal. Adrenal glands are normal. There has been a gastric bypass. The kidneys are normal. There is no hydronephrosis. Urinary bladder is normal. Surgical device is present within the endometrium. There are postsurgical changes of ventral abdominal hernia repair. There is a 10 x 3 x 5 cm fluid and gas collection underneath the incision. There are no dilated loops of large or small bowel. No obstruction or inflammation. No free fluid or air. No abdominal or pelvic lymphadenopathy. Aorta is normal in caliber without aneurysm. There are no suspicious osseus lesions. IMPRESSION: 1. Fluid and gas collection underneath the incision measuring 10 x 3 x 5 cm. Dictated by: Dictated on workstation # [id number] Dict: 07/27/191920 Trans: 07/27/191953 [facility] [id number] Interpreted by: PERFECTO KRAMER MD Electronically signed by: PERFECTO KRAMER MD 07/27/191953 Departure Communication (Admissions) I spoke with Dr. Harrison from surgery, recommends removing a few waldo, aspirating fluid, irrigating and packing. Patient is agreeable with this plan. I did offer her admission but she states she would prefer to go home. We will do a dose of clindamycin IV here, she denies nausea vomiting fevers chills or any other systemic symptoms and her CBC and chemistry is normal in appearance, no reason she couldn't go home to do outpatient antibiotics and return for any worsening. She would prefer to go home. I will also have her return tomorrow for a wound check. Impression Primary Impression: Abdominal wall abscess Disposition: HOME, SELF-CARE Condition: Stable Departure-Patient Inst. Decision time for Depature: 20:04 Referrals: AURELIA ALVAREZ DO (PCP/Family) Primary Care Physician Patient Instructions: Wound Care (DC) Add. Discharge Instructions: 1. Please return to the emergency room sometime tomorrow between 11 AM and 11 PM for wound check. Return to ER and before then for any fevers nausea vomiting worsening redness or any pain. Call Dr. Abbasi on Monday to make an appointment to be seen for follow-up preferably on Monday or Monday. All discharge instructions reviewed with patient and/or family. Voiced understanding. Scripts Clindamycin HCl (Clindamycin HCl) 300 Mg Capsule 300 MG PO TID, #21 CAP Prov: TING HERNANDEZ APRN 07/27/19 Copy Copies To 1: OMARI ABBASI MD, PETER J APRN Jul 27, 2019 18:40 POS
[2019-07-27] MEDS ORDERED: NS 100 ML (IVPB) BAG IV ONE (18:45)
[2019-07-27] MEDS ORDERED: HOLD METFORMIN - RECEIVED CONTRAST 20 ML VIAL IV SCH (18:45)
[2019-07-27] MEDS ORDERED: IOHEXOL 350 MG/ML 100 ML (OMNIPAQUE 350) VIAL IV ONE (18:45)
[2019-07-27 19:00] LABS: BASOPHILS % (AUTO) 0 % (0-10); EOSINOPHILS # (AUTO) 0.1 10^3/uL (0.0-0.3); EOSINOPHILS % (AUTO) 1 % (0-10); HEMATOCRIT 36 % (35-52); HEMOGLOBIN 11.5 G/DL (11.5-16.0); LYMPHOCYTES # (AUTO) 1.3 X 10^3 (1.0-4.0); LYMPHOCYTES % (AUTO) 16 % (12-44); MEAN CORPUSCULAR HEMOGLOBIN 28 PG (25-34); MEAN CORPUSCULAR HGB CONC 32 G/DL (32-36); MEAN CORPUSCULAR VOLUME 87 FL (80-99); MEAN PLATELET VOLUME 10.6 FL (7.4-10.4); MONOCYTES # (AUTO) 0.6 X 10^3 (0.0-1.0); MONOCYTES % (AUTO) 7 % (0-12); NEUTROPHILS # (AUTO) 6.5 X 10^3 (1.8-7.8); NEUTROPHILS % (AUTO) 76 % (42-75); PLATELET COUNT 330 10^3/uL (130-400); RED CELL DISTRIBUTION WIDTH 13.6 % (10.0-14.5); WHITE BLOOD COUNT 8.6 10^3/uL (4.3-11.0)
[2019-07-27 19:15] LABS: BUN/CREATININE RATIO 10; CARBON DIOXIDE 23 MMOL/L (21-32); CHLORIDE 106 MMOL/L (98-107); CREATININE SERUM 0.71 MG/DL (0.60-1.30); GFR ESTIMATED > 60; GLUCOSE 99 MG/DL (70-105); POTASSIUM 3.7 MMOL/L (3.6-5.0); SODIUM 142 MMOL/L (135-145)
--- NOTE | 2019-07-27 19:31 | Diagnostic Imaging Report ---
EXAMINATION: CT Abdomen and Pelvis with intravenous contrast. TECHNIQUE: Multiple contiguous axial images were obtained through the abdomen and pelvis after the uneventful administration of intravenous contrast. All CT scans use one or more of the following dose optimizing techniques: automated exposure control, MA and/or KvP adjustment based on a patient size and exam type, or iterative reconstruction. HISTORY: Recent surgery with diarrhea and concern for infection COMPARISON: 06/01/2016 FINDINGS: Limited views of the lower thorax are unremarkable. The liver is normal without focal lesion. There is no biliary ductal dilation. Gallbladder is surgically absent. Pancreas is normal. Spleen is normal. Adrenal glands are normal. There has been a gastric bypass. The kidneys are normal. There is no hydronephrosis. Urinary bladder is normal. Surgical device is present within the endometrium. There are postsurgical changes of ventral abdominal hernia repair. There is a 10 x 3 x 5 cm fluid and gas collection underneath the incision. There are no dilated loops of large or small bowel. No obstruction or inflammation. No free fluid or air. No abdominal or pelvic lymphadenopathy. Aorta is normal in caliber without aneurysm. There are no suspicious osseus lesions. IMPRESSION: 1. Fluid and gas collection underneath the incision measuring 10 x 3 x 5 cm. Dictated by: Dictated on workstation # [id number]
[2019-07-27] MEDS ORDERED: fentaNYL INJECTION 100 MCG/2 ML AMP ONE (19:37)
[2019-07-27] MEDS ORDERED: CLINDAMYCIN 900 MG/50 ML IVPB 50 ML IV ONE (20:00)
--- NOTE | 2019-07-27 20:00 | NUR ---
193- REDDENED AREA ON ABDOMEN MARKED BY Julia HERNANDEZ APRN. 1939- 50MCG FENTANYL GIVEN IVP PER Julia HERNANDEZ APRN VERBAL ORDERS. 1944- 6 MARIAN REMOVED FROM ABD INCISION BY Julia HERNANDEZ APRN. 90 CC DRAINAGE SUCTIONED FROM ABD PLUS UNKNOWN AMOUNT DRAINED TO GAUZE. 1950- WOUND CX OBTAINED FROM [facility] BY Julia HERNANDEZ APRN. 2000- 1 INCH PACKING PLACED. SITE COVERED WITH 4X4 GAUZE AND TAPE DRSG. Addendum: 07/27/19 at 2018 by YUSEF DISPOSABLE SUTURE SET USED BY Julia HERNANDEZ APRN FOR PROCEDURE.
[2019-07-27] MEDS ORDERED: CLIN300C11 PO (20:06)
[2019-07-27] MEDS ORDERED: RX-CLINDAMYCIN 150 MG (CLEOCIN) CAP PPK#4 PO STA (20:06)
[2019-07-27 20:33] VITALS: BP 137/37
--- OUTSIDE RECORDS SUMMARY | 2019-08-20 02:11 | XMS REPORT | Continuity of Care Document ---
Author Organization Unknown POS Address Unknown SP Phone Unavailable SP Allergies Active Description Code Type Severity POS Reaction Onset Reported/Identified POS to Patient Clinical Status POS Yes NKANo Known Allergies NKA Miscellaneous SP Unknown N/A 04/15/2007 SP SP Yes No Known Drug Allergies [id number] Drug SP Unknown N/A 07/12/2019 SP SP Medications There is no data. Problems Date Dx Coded Attending Type Code POS Diagnosed By POS 06/19/2010 Ot 278.01 MOR BID OBESITY SP SP 06/19/2010 Ot 300.4 DYST HYMIC DISORDER SP SP 06/19/2010 Ot 327.23 OBS TRUCTIVE SLEEP SPAPNEA (ADULT) (PEDIATR SP 06/19/2010 Ot 401.9 HYPE RTENSION NOS SP SP 06/19/2010 Ot 496 CHR AI RWAY OBSTRUCT SP SP 06/19/2010 Ot 530.81 ESO PHAGEAL REFLUX SP SP 06/19/2010 Ot V15.82 HIS TORY OF SP USE SP 06/19/2010 Ot V58.69 OTH SP USE SP 06/19/2010 Ot V85.4 BODY MASS INDEX 40 SPAND OVER, ADULT SP 11/03/2010 Ot 305.1 SP 11/03/2010 Ot 416.8 SP 11/03/2010 Ot 530.81 SP 11/03/2010 Ot 786.09 SP 11/03/2010 Ot 786.50 SP 11/03/2010 Ot V58.66 SP 11/03/2010 Ot V58.69 SP 07/16/2011 Ot 276.8 HYPO POTASSEMIA SP SP 07/16/2011 Ot 278.01 MOR BID OBESITY SP SP 07/16/2011 Ot 300.4 DYST HYMIC DISORDER SP SP 07/16/2011 Ot 401.9 HYPE RTENSION NOS SP SP 07/16/2011 Ot 416.8 CHR PULMON HEART SP NEC SP 07/16/2011 Ot 427.89 CAR DIAC SP NEC SP 07/16/2011 Ot 496 CHR AI RWAY OBSTRUCT SP SP 07/16/2011 Ot 552.21 OBS TR INCISIONAL SP SP 07/16/2011 Ot 568.0 RENU TONEAL SP SP 07/16/2011 Ot 780.57 UNS PECIFIED SLEEP SPAPNEA SP 07/16/2011 Ot V15.82 HIS TORY OF SP USE SP 07/16/2011 Ot V64.41 LAP AROSCOPIC SP PROC CONVERTED TO SP 07/16/2011 Ot V85.42 BOD Y MASS INDEX SP49.9, ADULT SP 08/26/2011 Ot 278.01 MOR BID OBESITY SP SP 08/26/2011 Ot 300.00 ANX IETY STATE NOS SP SP 08/26/2011 Ot 311 DEPRES SIVE DISORDER SP SP 08/26/2011 Ot 327.23 OBS TRUCTIVE SLEEP SPAPNEA (ADULT) (PEDIATR SP 08/26/2011 Ot 401.9 HYPE RTENSION NOS SP SP 08/26/2011 Ot 416.8 CHR PULMON HEART SP NEC SP 08/26/2011 Ot 427.89 CAR DIAC SP NEC SP 08/26/2011 Ot 496 CHR AI RWAY OBSTRUCT SP SP 08/26/2011 Ot 998.13 SER TEODORO COMPLICAT SP PROC SP 08/26/2011 Ot V15.82 HIS TORY OF SP USE SP 08/26/2011 Ot V58.66 GUSTAVO G-TERM SP USE OF ASPIRIN SP 08/26/2011 Ot V58.69 OTH SP USE SP 08/26/2011 Ot V85.42 BOD Y MASS INDEX SP49.9, ADULT SP 11/18/2011 Ot 327.23 OBS TRUCTIVE SLEEP SPAPNEA (ADULT) (PEDIATR SP 11/30/2011 Ot 427.89 CAR DIAC SP NEC SP 10/22/[address] PAIN NOS SP SP 10/22/[address] PAIN NEC SP SP 11/07/2012 Ot 272.4 HYPE RLIPIDEMIA SP SP 11/07/2012 Ot 278.01 MOR BID OBESITY SP SP 11/07/2012 Ot 401.9 HYPE RTENSION NOS SP SP 11/07/2012 Ot 427.81 SIN OATRIAL NODE SP SP 11/07/2012 Ot 496 CHR AI RWAY OBSTRUCT SP SP 11/07/[address] PAIN NOS SP SP 11/07/2012 Ot 794.30 ABN CARDIOVASC SP NOS SP 11/07/2012 Ot V58.69 OTH SP USE SP 11/07/2012 Ot V85.41 BOD Y MASS INDEX SP44.9, ADULT SP 04/19/2014 AURELIA ALVAREZ DO Ot 427.81 SP SINOATRIAL NODE DYSFUNCT SP 04/19/2014 AURELIA ALVAREZ DO Ot 496 SP CHR AIRWAY OBSTRUCT NEC SP 04/19/2014 AURELIA ALVAREZ DO Ot 780.79 SP OTH MALAISE FATIGUE SP 09/05/2015 Ot 786.50 SP 09/05/2015 Ot 786.50 SP 09/05/2015 Ot 786.05 SP 09/05/2015 Ot 416.8 SP 09/05/2015 Ot 579.3 SP 09/05/2015 Ot V67.09 SP 09/05/2015 Ot 427.89 SP 09/05/2015 Ot 786.09 SP 09/05/2015 Ot 786.50 SP 09/05/2015 Ot 397.0 SP 09/05/2015 Ot 424.0 SP 09/05/2015 Ot 786.09 SP 09/05/2015 Ot 786.50 SP 09/05/2015 Ot 579.3 SP 09/05/2015 AURELIA ALVAREZ DO Ot 579.3 SP SP 09/05/2015 PRIYANK HUTCHINS Ot F32.9 SP MAJOR DEPRESSIVE DISORDER, SINGLE EPISOD SP 09/05/2015 PRIYANK HUTCHINS Ot N39.0 SP URINARY TRACT INFECTION, SITE NOT SPECIF SP 09/05/2015 PRIYANK HUTCHINS Ot R00.1 SP BRADYCARDIA, UNSPECIFIED SP 09/05/2015 PRIYANK HUTCHINS Ot Z63.79 SP OTHER STRESSFUL LIFE EVENTS AFFECTING FA SP 09/12/2015 Ot 786.50 SP 09/12/2015 Ot 786.50 SP 09/12/2015 Ot 786.05 SP 09/12/2015 Ot 416.8 SP 09/12/2015 Ot 579.3 SP 09/12/2015 Ot V67.09 SP 09/12/2015 Ot 427.89 SP 09/12/2015 Ot 786.09 SP 09/12/2015 Ot 786.50 SP 09/12/2015 Ot 397.0 SP 09/12/2015 Ot 424.0 SP 09/12/2015 Ot 786.09 SP 09/12/2015 Ot 786.50 SP 09/12/2015 Ot 579.3 SP 09/12/2015 AURELIA ALVAREZ DO Ot 579.3 SP SP 06/01/2016 Ot 416.8 CHR PULMON HEART SP NEC SP 06/01/[address] POSTOP SP SP 06/01/2016 Ot V67.09 MIN STEVE FOLLOW- SP OTHER SURGERY SP 06/01/2016 Ot 427.89 CAR DIAC SP NEC SP 06/01/2016 Ot 786.09 RES PIRATORY SP NEC SP 06/01/[address] PAIN NOS SP SP 06/01/2016 Ot 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 SP SP 06/01/2016 Ot 424.0 MITR AL VALVE SP SP 06/01/2016 Ot 786.09 RES PIRATORY SP NEC SP 06/01/[address] PAIN NOS SP SP 06/01/[address] POSTOP SP SP 06/01/2016 AURELIA ALVAREZ DO Ot 579.3 SP INTEST POSTOP NONABSORB SP 06/04/[address] POSTOP SP SP 06/04/2016 Ot V67.09 MIN STEVE FOLLOW- SP OTHER SURGERY SP 06/04/2016 Ot 427.89 CAR DIAC SP NEC SP 06/04/2016 Ot 786.09 RES PIRATORY SP NEC SP 06/04/[address] PAIN NOS SP SP 06/04/2016 Ot 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 SP SP 06/04/2016 Ot 424.0 MITR AL VALVE SP SP 06/04/2016 Ot 786.09 RES PIRATORY SP NEC SP 06/04/[address] PAIN NOS SP SP 06/04/[address] POSTOP SP SP 06/04/2016 AURELIA ALVAREZ DO Ot 579.3 SP INTEST POSTOP NONABSORB SP 06/04/2016 OMARI DONNELLY MD Ot F32.9 SP DEPRESSIVE DISORDER, SINGLE EPISOD SP 06/04/2016 OMARI DONNELLY MD Ot F41.9 SP DISORDER, UNSPECIFIED SP 06/04/2016 OMARI DONNELLY MD Ot G47.30 SP APNEA, UNSPECIFIED SP 06/04/2016 OMARI DONNELLY MD Ot J44.9 SP OBSTRUCTIVE PULMONARY DISEASE, U SP 06/04/2016 ANDRZEJ CHATTERJEE, OMARI Ot K43.0 SP HERNIA WITH OBSTRUCTION, WITH SP 06/04/2016 ANDRZEJ CHATTERJEE, OMARI Ot N39.0 SP TRACT INFECTION, SITE NOT SPECIF SP 06/04/2016 OMARI DONNELLY MD Ot Z98.84 SP SURGERY STATUS SP 06/04/2016 OMARI DONNELLY MD Ot F32.9 SP DEPRESSIVE DISORDER, SINGLE EPISOD SP 06/04/2016 OMARI DONNELLY MD Ot F41.9 SP DISORDER, UNSPECIFIED SP 06/04/2016 ANDRZEJ CHATTERJEE, OMARI Ot G47.30 SP APNEA, UNSPECIFIED SP 06/04/2016 ANDRZEJ CHATTERJEE, OMARI Ot J44.9 SP OBSTRUCTIVE PULMONARY DISEASE, U SP 06/04/2016 ANDRZEJ CHATTERJEE, OMARI Ot K43.0 SP HERNIA WITH OBSTRUCTION, WITH SP 06/04/2016 OMARI DONNELLY MD Ot N39.0 SP TRACT INFECTION, SITE NOT SPECIF SP 06/04/2016 OMARI DONNELLY MD Ot Z98.84 SP SURGERY STATUS SP 06/30/2017 GELNKECHIDER DOAURELIA Ot E66.9 SP OBESITY, UNSPECIFIED SP 06/30/2017 GELNKECHIDER AURELIA PHELPS Ot G47.33 SP OBSTRUCTIVE SLEEP APNEA (ADULT) (PEDIATR SP 06/30/2017 GELLENDER DOAURELIA Ot I27.20 SP PULMONARY HYPERTENSION, UNSPECIFIED SP 06/30/2017 GELNKECHIDER AURELIA PHELPS Ot J44.9 SP CHRONIC OBSTRUCTIVE PULMONARY DISEASE, U SP 06/30/2017 GELNKECHIDER AURELIA PHELPS Ot R00.1 SP BRADYCARDIA, UNSPECIFIED SP 06/30/2017 GELLENDER DOAURELIA Ot R07.9 SP CHEST PAIN, UNSPECIFIED SP 06/30/2017 GELLENDER DOAURELIA Ot Z79.899 SP OTHER LONG-TERM (CURRENT) DRUG THERAPY SP 06/30/2017 GELNKECHIDER AURELIA PHELPS Ot Z87.891 SP PERSONAL HISTORY OF NICOTINE DEPENDENCE SP 06/30/2017 AURELIA ALVAREZ DO Ot Z98.84 SP BARIATRIC SURGERY STATUS SP 06/30/2017 AURELIA ALVAREZ DO Ot E66.9 SP OBESITY, UNSPECIFIED SP 06/30/2017 GELLENDER AURELIA PHELPS Ot G47.33 SP OBSTRUCTIVE SLEEP APNEA (ADULT) (PEDIATR SP 06/30/2017 GELLENDER DO, AURELIA Briggs Ot I27.20 SP PULMONARY HYPERTENSION, UNSPECIFIED SP 06/30/2017 GELLENDER DO, AURELIA Briggs Ot J44.9 SP CHRONIC OBSTRUCTIVE PULMONARY DISEASE, U SP 06/30/2017 GELLENDER DO, AURELIA Briggs Ot R00.1 SP BRADYCARDIA, UNSPECIFIED SP 06/30/2017 GELLENDER DO, AURELIA Briggs Ot R07.9 SP CHEST PAIN, UNSPECIFIED SP 06/30/2017 GELLENDER DO, AURELIA Briggs Ot Z79.899 SP OTHER EXPELLER OPERATOR (CURRENT) DRUG THERAPY SP 06/30/2017 GELLENDER DO, AURELIA Briggs Ot Z87.891 SP PERSONAL HISTORY OF NICOTINE DEPENDENCE SP [facility]/30[facility] Briggs Ot Z98.84 SP BARIATRIC SURGERY STATUS SP 07/03/2017 [facility] AURELIA Briggs Ot E66.9 SP OBESITY, UNSPECIFIED SP 07/03/2017 GELLENDER DO, AURELIA Briggs Ot G47.33 SP OBSTRUCTIVE SLEEP APNEA (ADULT) (PEDIATR SP 07/03/2017 GELLENDER DO, AURELIA Briggs Ot I27.20 SP PULMONARY HYPERTENSION, UNSPECIFIED SP 07/03/2017 GELLENDER DO, AURELIA Briggs Ot J44.9 SP CHRONIC OBSTRUCTIVE PULMONARY DISEASE, U SP 07/03/2017 GELLENDER DO, AURELIA Briggs Ot R00.1 SP BRADYCARDIA, UNSPECIFIED SP 07/03/2017 GELLENDER DO, AURELIA Briggs Ot R07.9 SP CHEST PAIN, UNSPECIFIED SP 07/03/2017 GELLENDER DO, AURELIA Briggs Ot Z79.899 SP OTHER LONG-TERM (CURRENT) DRUG THERAPY SP 07/03/2017 GELLENDER DO, AURELIA Briggs Ot Z87.891 SP PERSONAL HISTORY OF NICOTINE DEPENDENCE SP 07/03/2017 GELLENDER DO, AURELIA Briggs Ot Z98.84 SP BARIATRIC SURGERY STATUS SP 08/13/2017 SHANAE CHATTERJEE, ALISSON Cheung Ot G47.30 SP SLEEP APNEA, UNSPECIFIED SP 08/13/2017 SHANAE CHATTERJEE, ALISSON Cheung Ot R06.83 SP SNORING SP 06/06/2018 [facility] AURELIA Briggs Ot 579.3 SP INTEST POSTOP NONABSORB SP 06/06/2018 [facility] , AURELIA Briggs Ot Z09 SP ENCNTR FOR F/U EXAM AFT TRTMT FOR COND O SP 06/06/2018 [facility] DO, AURELIA Chester Ot Z98.84 SP BARIATRIC SURGERY STATUS SP 06/12/2018 KIM DO, AURELIA Briggs Ot Z09 SP ENCNTR FOR F/U EXAM AFT TRTMT FOR COND O SP 06/12/2018 KIM DO AURELIA Briggs Ot Z98.84 SP BARIATRIC SURGERY STATUS SP 07/12/2019 OMARI DONNELLY MD, Ot Z01.81 8 SP FOR OTHER PREPROCEDURAL EXAMIN SP 07/18/2019 OMARI DONNELLY MD, Ot Z01.81 8 SP FOR OTHER PREPROCEDURAL EXAMIN SP 07/19/2019 OMARI DONNELLY MD, Ot E66.01 SP (SEVERE) OBESITY DUE TO EXCESS CA SP 07/19/2019 OMARI DONNELLY MD Ot F32.9 SP DEPRESSIVE DISORDER, SINGLE EPISOD SP 07/19/2019 OMARI DONNELLY MD, Ot F41.9 SP DISORDER, UNSPECIFIED SP 07/19/2019 OMARI DONNELLY MD, Ot G47.33 SP SLEEP APNEA (ADULT) (PEDIATR SP 07/19/2019 OMARI DONNELLY MD, Ot J44.9 SP OBSTRUCTIVE PULMONARY DISEASE, U SP 07/19/2019 OMARI DONNELLY MD Ot K43.2 SP HERNIA WITHOUT OBSTRUCTION OR SP 07/19/2019 OMARI DONNELLY MD, Ot K52.9 SP GASTROENTERITIS AND COLITIS SP 07/19/2019 OMARI DONNELLY MD Ot K66.0 SP ADHESIONS (POSTPROCEDURAL) (P SP 07/19/2019 OMARI DONNELLY MD Ot L02.21 1 SP ABSCESS OF ABDOMINAL WALL SP 07/19/2019 OMARI DONNELLY MD Ot N39.0 SP TRACT INFECTION, SITE NOT SPECIF SP 07/19/2019 OMARI DONNELLY MD, Ot Z68.42 SP MASS INDEX (BMI) 45.0-49.9, ADULT SP 07/19/2019 OMARI DONNELLY MD, Ot Z79.89 9 SP EXPELLER OPERATOR (CURRENT) DRUG THERAPY SP 07/19/2019 OMARI DONNELLY MD, Ot Z80.42 SP HISTORY OF MALIGNANT NEOPLASM OF SP 07/19/2019 OMARI DONNELLY MD, Ot Z82.49 SP HX OF ISCHEM HEART DIS AND OTH DI SP 07/19/2019 OMARI DONNELLY MD, Ot Z83.3 SP HISTORY OF DIABETES MELLITUS SP 07/19/2019 OMARI DONNELLY MD, Ot Z87.89 1 SP HISTORY OF NICOTINE DEPENDENCE SP 07/19/2019 OMARI DONNELLY MD, Ot Z90.49 SP ABSENCE OF OTHER SPECIFIED PART SP 07/25/2019 OMARI DONNELLY MD, Ot E66.01 SP (SEVERE) OBESITY DUE TO EXCESS CA SP 07/25/2019 OMARI DONNELLY MD, Ot F32.9 SP DEPRESSIVE DISORDER, SINGLE EPISOD SP 07/25/2019 OMARI DONNELLY MD, Ot F41.9 SP DISORDER, UNSPECIFIED SP 07/25/2019 OMARI DONNELLY MD, Ot G47.33 SP SLEEP APNEA (ADULT) (PEDIATR SP 07/25/2019 OMARI DONNELLY MD, Ot J44.9 SP OBSTRUCTIVE PULMONARY DISEASE, U SP 07/25/2019 OMARI DONNELLY MD, Ot K43.2 SP HERNIA WITHOUT OBSTRUCTION OR SP 07/25/2019 OMARI DONNELLY MD, Ot K52.9 SP GASTROENTERITIS AND COLITIS SP 07/25/2019 OMARI DONNELLY MD, Ot K66.0 SP ADHESIONS (POSTPROCEDURAL) (P SP 07/25/2019 OMARI DONNELLY MD Ot L02.21 1 SP ABSCESS OF ABDOMINAL WALL SP 07/25/2019 OMARI DONNELLY MD, Ot N39.0 SP TRACT INFECTION, SITE NOT SPECIF SP 07/25/2019 OMARI DONNELLY MD, Ot Z68.42 SP MASS INDEX (BMI) 45.0-49.9, ADULT SP 07/25/2019 OMARI DONNELLY MD, Ot Z79.89 9 SP EXPELLER OPERATOR (CURRENT) DRUG THERAPY SP 07/25/2019 OMARI DONNELLY MD, Ot Z80.42 SP HISTORY OF MALIGNANT NEOPLASM OF SP 07/25/2019 OMARI DONNELLY MD Ot Z82.49 SP HX OF ISCHEM HEART DIS AND OTH DI SP 07/25/2019 OMARI DONNELLY MD, Ot Z83.3 SP HISTORY OF DIABETES MELLITUS SP 07/25/2019 OMARI DONNELLY MD, Ot Z87.89 1 SP HISTORY OF NICOTINE DEPENDENCE SP 07/25/2019 OMARI DONNELLY MD, Ot Z90.49 SP ABSENCE OF OTHER SPECIFIED PART SP 07/30/2019 TING HERNANDEZ APRN Ot F41 .9 SP DISORDER, UNSPECIFIED SP 07/30/2019 TING HERNANDEZ APRN Ot J44 .9 SP OBSTRUCTIVE PULMONARY DISEASE, U SP 07/30/2019 TING HERNANDEZ APRN Ot L02.211 SP CUTANEOUS ABSCESS OF ABDOMINAL WALL SP 07/30/2019 TING HERNANDEZ APRN Ot Z80.42 SP FAMILY HISTORY OF MALIGNANT NEOPLASM OF SP 07/30/2019 TING HERNANDEZ APRN Ot Z82.49 SP FAMILY HX OF ISCHEM HEART DIS AND OTH DI SP 07/30/2019 TING HERNANDEZ APRN Ot Z95 .9 SP OF CARDIAC AND VASCULAR IMPLANT SP 07/30/2019 TING HERNANDEZ APRN Ot Z98.84 SP BARIATRIC SURGERY STATUS SP 07/30/2019 TING HERNANDEZ APRN Ot Z98.890 SP OTHER SPECIFIED POSTPROCEDURAL STATES SP 07/31/2019 OMARI DONNELLY MD Ot E66.01 SP (SEVERE) OBESITY DUE TO EXCESS CA SP 07/31/2019 OMARI DONNELLY MD Ot F32.9 SP DEPRESSIVE DISORDER, SINGLE EPISOD SP 07/31/2019 OMARI DONNELLY MD, Ot F41.9 SP DISORDER, UNSPECIFIED SP 07/31/2019 OMARI DONNELLY MD, Ot G47.33 SP SLEEP APNEA (ADULT) (PEDIATR SP 07/31/2019 OMARI DONNELLY MD, Ot J44.9 SP OBSTRUCTIVE PULMONARY DISEASE, U SP 07/31/2019 OMARI DONNELLY MD Ot K43.2 SP HERNIA WITHOUT OBSTRUCTION OR SP 07/31/2019 OMARI DONNELLY MD, Ot K52.9 SP GASTROENTERITIS AND COLITIS SP 07/31/2019 OMARI DONNELLY MD Ot K66.0 SP ADHESIONS (POSTPROCEDURAL) (P SP 07/31/2019 OMARI DONNELLY MD Ot L02.21 1 SP ABSCESS OF ABDOMINAL WALL SP 07/31/2019 OMARI DONNELLY MD, Ot N39.0 SP TRACT INFECTION, SITE NOT SPECIF SP 07/31/2019 OMARI DONNELLY MD Ot Z68.42 SP MASS INDEX (BMI) 45.0-49.9, ADULT SP 07/31/2019 OMARI DONNELLY MD, Ot Z79.89 9 SP LONG-TERM (CURRENT) DRUG THERAPY SP 07/31/2019 OMARI DONNELLY MD, Ot Z80.42 SP HISTORY OF MALIGNANT NEOPLASM OF SP 07/31/2019 OMARI DONNELLY MD Ot Z82.49 SP HX OF ISCHEM HEART DIS AND OTH DI SP 07/31/2019 OMARI DONNELLY MD, Ot Z83.3 SP HISTORY OF DIABETES MELLITUS SP 07/31/2019 OMARI DONNELLY MD Ot Z87.89 1 SP HISTORY OF NICOTINE DEPENDENCE SP 07/31/2019 OMARI DONNELLY MD Ot Z90.49 SP ABSENCE OF OTHER SPECIFIED PART SP 08/01/2019 TING HERNANDEZ APRN Ot F41 .9 SP DISORDER, UNSPECIFIED SP 08/01/2019 TING HERNANDEZ APRN Ot G47.30 SP SLEEP APNEA, UNSPECIFIED SP 08/01/2019 TING HERNANDEZ APRN Ot J44 .9 SP OBSTRUCTIVE PULMONARY DISEASE, U SP 08/01/2019 TING HERNANDEZ APRN Ot L02.211 SP CUTANEOUS ABSCESS OF ABDOMINAL WALL SP 08/01/2019 TING HERNANDEZ APRN Ot T81.40XA SP INFECTION FOLLOWING A PROCEDURE, UNSPECI SP 08/01/2019 TING HERNANDEZ APRN Ot Z80.42 SP FAMILY HISTORY OF MALIGNANT NEOPLASM OF SP 08/01/2019 TING HERNANDEZ APRN Ot Z82.49 SP FAMILY HX OF ISCHEM HEART DIS AND OTH DI SP 08/01/2019 TING HERNANDEZ APRN Ot Z95 .9 SP OF CARDIAC AND VASCULAR IMPLANT SP 08/01/2019 TING HERNANDEZ APRN Ot Z98.84 SP BARIATRIC SURGERY STATUS SP 08/01/2019 TING HERNANDEZ APRN Ot Z98.890 SP OTHER SPECIFIED POSTPROCEDURAL STATES SP 08/01/2019 TING HERNANDEZ APRN Ot Z99.89 SP DEPENDENCE ON OTHER ENABLING MACHINES AN SP Procedures Code Description Performed By Per john On POS 53.61 SP 07/13/2011 SP [id number] PACK PPLEMENT ABDOMINAL WALL SP SYNTH SUB 06/02/2016 SP Results Test Result Range POS Comprehensive metabolic panel - 06/01/16 12:58 POS Serum or plasma sodium measurement (moles/volume) 140 mmol/L SP 135-145 SP Serum or plasma potassium measurement (moles/volume) 3.9 mmol/L SP 3.6-5.0 SP Serum or plasma chloride measurement (moles/volume) 108 mmol/L SP 98-107 SP Carbon dioxide 22 mmol/L 21-32 SP Serum or plasma anion gap determination (moles/volume) 10 mmol/L SP 5-14 SP Serum or plasma urea nitrogen measurement (mass/volume ) 11 mg/dL SP 7-18 SP Serum or plasma creatinine measurement (mass/volume) 0.71 mg/dL SP 0.60-1.30 SP Serum or plasma urea nitrogen/creatinine mass ratio 15 NRG SP Serum or plasma creatinine measurement w ith calculation of estimated glomerular SP rate > NRG SP Serum or plasma glucose measurement (mass/volume) 112 mg/dL SP105 Serum or plasma calcium measurement (mass/volume) 9.3 mg/dL SP10.1 Serum or plasma total bilirubin measurement (mass/volu me) 0.6 mg/dL SP 0.1-1.0 SP Serum or plasma alkaline phosphatase umm surement (enzymatic activity/volume) SP 93 U/L 40-136 SP Serum or plasma aspartate aminotransfera se measurement (enzymatic SP 16 U/L 5-34 SP Serum or plasma alanine aminotransferase measurement (enzymatic activity/volume) SP 12 U/L 0-55 SP Serum or plasma protein measurement (mass/volume) 7.9 g/dL SP8.2 Serum or plasma albumin measurement (mass/volume) 4.0 g/dL SP4.5 Complete blood count (CBC) with automate d white blood cell (WBC) differential - POS 12:58 Blood leukocytes automated count (number/volume) 9.5 10*3/uL POS 4.3-11.0 SP Blood erythrocytes automated count (number/volume) 4.81 10*6/uL SP 4.35-5.85 SP Venous blood hemoglobin measurement (mass/volume) 14.0 g/dL SP16.0 Blood hematocrit (volume fraction) 42 % 35-52 SP Automated erythrocyte mean corpuscular volume 88 [ foz_us] SP99 Automated erythrocyte mean corpuscular h emoglobin (mass per erythrocyte) SP 29 pg 25-34 SP Automated erythrocyte mean corpuscular h emoglobin concentration measurement SP 33 g/dL 32-36 SP Automated erythrocyte distribution width ratio 14. 1 % 10.0- SP Automated blood platelet count (count/volume) 212 10*3/uL SP400 Automated blood platelet mean volume measurement 11.5 [foz_us] SP 7.4-10.4 SP Automated blood neutrophils/100 leukocytes 79 % 42-75 SP Automated blood lymphocytes/100 leukocytes 15 % 12-44 SP Blood monocytes/100 leukocytes 5 % 0-12 SP Automated blood eosinophils/100 leukocytes 1 % 0-10 SP Automated blood basophils/100 leukocytes 0 % 0-10 SP Blood neutrophils automated count (number/volume) 7.6 10*3 SP7.8 Blood lymphocytes automated count (number/volume) 1.4 10*3 SP4.0 Blood monocytes automated count (number/volume) 0. 5 10*3 SP1.0 Automated eosinophil count 0.1 10*3/uL 0 .0-0.3 SP Automated blood basophil count (count/volume) 0.0 10*3/uL SP0.1 Complete urinalysis with reflex to cultu re - 06/01/16 16:30 POS Urine color determination YELLOW NRG SP Urine clarity determination CLEAR NR G SP Urine pH measurement by test strip 5 5-9 SP Specific gravity of urine by test strip 1.010 1.016-1.022 SP Urine protein assay by test strip, semi-quantitative 1+ SP Urine glucose detection by automated test strip NE GATIVE SP Erythrocytes detection in urine sediment by light micr oscopy NEGATIVE SP NEGATIVE SP Urine ketones detection by automated test strip NE GATIVE SP Urine nitrite detection by test strip NEGATIVE NEGATIVE SP Urine total bilirubin detection by test strip NEGA TIVE SP Urine urobilinogen measurement by automated test strip (mass/volume) SP NORMAL SP Urine leukocyte esterase detection by dipstick 1+ NEGATIVE SP Automated urine sediment erythrocyte cou nt by microscopy (number/high power SP NONE NRG SP Automated urine sediment leukocyte count by microscopy (number/high power field) SP RARE NRG SP Bacteria detection in urine sediment by light microsco py NEGATIVE SP NRG SP Crystals detection in urine sediment by light microsco py PRESENT SP NRG SP Casts detection in urine sediment by light microscopy NONE SP Mucus detection in urine sediment by light microscopy NEGATIVE SP NRG SP Complete urinalysis with reflex to culture NO NRG SP Calcium oxalate crystals detection in ur ine sediment by light microscopy SP FEW NRG SP Methicillin resistant Staphylococcus aur eus (MRSA) screening culture - 06/01/16 POS Methicillin resistant Staphylococcus aureus (MRSA) scr eening culture POS NRG SP Complete blood count (CBC) with automate d white blood cell (WBC) differential - POS 05:16 Blood leukocytes automated count (number/volume) 7.2 10*3/uL POS 4.3-11.0 SP Blood erythrocytes automated count (number/volume) 4.48 10*6/uL SP 4.35-5.85 SP Venous blood hemoglobin measurement (mass/volume) 12.9 g/dL SP16.0 Blood hematocrit (volume fraction) 39 % 35-52 SP Automated erythrocyte mean corpuscular volume 88 [ foz_us] SP99 Automated erythrocyte mean corpuscular h emoglobin (mass per erythrocyte) SP 29 pg 25-34 SP Automated erythrocyte mean corpuscular h emoglobin concentration measurement SP 33 g/dL 32-36 SP Automated erythrocyte distribution width ratio 13. 8 % 10.0- SP Automated blood platelet count (count/volume) 175 10*3/uL SP400 Automated blood platelet mean volume measurement 11.7 [foz_us] SP 7.4-10.4 SP Automated blood neutrophils/100 leukocytes 81 % 42-75 SP Automated blood lymphocytes/100 leukocytes 10 % 12-44 SP Blood monocytes/100 leukocytes 8 % 0-12 SP Automated blood eosinophils/100 leukocytes 1 % 0-10 SP Automated blood basophils/100 leukocytes 0 % 0-10 SP Blood neutrophils automated count (number/volume) 5.8 10*3 SP7.8 Blood lymphocytes automated count (number/volume) 0.7 10*3 SP4.0 Blood monocytes automated count (number/volume) 0. 6 10*3 SP1.0 Automated eosinophil count 0.1 10*3/uL 0 .0-0.3 SP Automated blood basophil count (count/volume) 0.0 10*3/uL SP0.1 Complete blood count (CBC) with automate d white blood cell (WBC) differential - POS 14:15 Blood leukocytes automated count (number/volume) 7.0 10*3/uL POS 4.3-11.0 SP Blood erythrocytes automated count (number/volume) 4.57 10*6/uL SP 4.35-5.85 SP Venous blood hemoglobin measurement (mass/volume) 13.0 g/dL SP16.0 Blood hematocrit (volume fraction) 41 % 35-52 SP Automated erythrocyte mean corpuscular volume 89 [ foz_us] SP99 Automated erythrocyte mean corpuscular h emoglobin (mass per erythrocyte) SP 28 pg 25-34 SP Automated erythrocyte mean corpuscular h emoglobin concentration measurement SP 32 g/dL 32-36 SP Automated erythrocyte distribution width ratio 13. 8 % 10.0- SP Automated blood platelet count (count/volume) 216 10*3/uL SP400 Automated blood platelet mean volume measurement 11.4 [foz_us] SP 7.4-10.4 SP Automated blood neutrophils/100 leukocytes 69 % 42-75 SP Automated blood lymphocytes/100 leukocytes 22 % 12-44 SP Blood monocytes/100 leukocytes 7 % 0-12 SP Automated blood eosinophils/100 leukocytes 2 % 0-10 SP Automated blood basophils/100 leukocytes 0 % 0-10 SP Blood neutrophils automated count (number/volume) 4.9 10*3 SP7.8 Blood lymphocytes automated count (number/volume) 1.6 10*3 SP4.0 Blood monocytes automated count (number/volume) 0. 5 10*3 SP1.0 Automated eosinophil count 0.1 10*3/uL 0 .0-0.3 SP Automated blood basophil count (count/volume) 0.0 10*3/uL SP0.1 Comprehensive metabolic panel - 06/29/17 14:15 POS Serum or plasma sodium measurement (moles/volume) 143 mmol/L SP 135-145 SP Serum or plasma potassium measurement (moles/volume) 4.1 mmol/L SP 3.6-5.0 SP Serum or plasma chloride measurement (moles/volume) 110 mmol/L SP 98-107 SP Carbon dioxide 26 mmol/L 21-32 SP Serum or plasma anion gap determination (moles/volume) 7 mmol/L SP 5-14 SP Serum or plasma urea nitrogen measurement (mass/volume ) 16 mg/dL SP 7-18 SP Serum or plasma creatinine measurement (mass/volume) 0.76 mg/dL SP 0.60-1.30 SP Serum or plasma urea nitrogen/creatinine mass ratio 21 NRG SP Serum or plasma creatinine measurement w ith calculation of estimated glomerular SP rate > NRG SP Serum or plasma glucose measurement (mass/volume) 98 mg/dL SP105 Serum or plasma calcium measurement (mass/volume) 9.4 mg/dL SP10.1 Serum or plasma total bilirubin measurement (mass/volu me) 0.4 mg/dL SP 0.1-1.0 SP Serum or plasma alkaline phosphatase umm surement (enzymatic activity/volume) SP 95 U/L 40-136 SP Serum or plasma aspartate aminotransfera se measurement (enzymatic SP 18 U/L 5-34 SP Serum or plasma alanine aminotransferase measurement (enzymatic activity/volume) SP 15 U/L 0-55 SP Serum or plasma protein measurement (mass/volume) 7.3 g/dL SP8.2 Serum or plasma albumin measurement (mass/volume) 3.7 g/dL SP4.5 Serum or plasma troponin i.cardiac measu rement (mass/volume) - 06/29/17 14:15 POS Serum or plasma troponin i.cardiac measurement (mass/v olume) < ng/mL POS <0.30 SP Serum or plasma troponin i.cardiac measu rement (mass/volume) - 06/29/17 20:00 POS Serum or plasma troponin i.cardiac measurement (mass/v olume) < ng/mL POS <0.30 SP Automated blood complete blood count (he mogram) panel - 06/30/17 05:35 POS Blood leukocytes automated count (number/volume) 5.7 10*3/uL SP 4.3-11.0 SP Blood erythrocytes automated count (number/volume) 4.45 10*6/uL SP 4.35-5.85 SP Venous blood hemoglobin measurement (mass/volume) 12.6 g/dL SP16.0 Blood hematocrit (volume fraction) 39 % 35-52 SP Automated erythrocyte mean corpuscular volume 88 [ foz_us] SP99 Automated erythrocyte mean corpuscular h emoglobin (mass per erythrocyte) SP 28 pg 25-34 SP Automated erythrocyte mean corpuscular h emoglobin concentration measurement SP 32 g/dL 32-36 SP Automated erythrocyte distribution width ratio 13. 8 % 10.0- SP Automated blood platelet count (count/volume) 216 10*3/uL SP400 Automated blood platelet mean volume measurement 11.1 [foz_us] SP 7.4-10.4 SP Whole blood basic metabolic panel - 03/11 05:35 POS Serum or plasma sodium measurement (moles/volume) 142 mmol/L SP 135-145 SP Serum or plasma potassium measurement (moles/volume) 3.8 mmol/L SP 3.6-5.0 SP Serum or plasma chloride measurement (moles/volume) 109 mmol/L SP 98-107 SP Carbon dioxide 24 mmol/L 21-32 SP Serum or plasma anion gap determination (moles/volume) 9 mmol/L SP 5-14 SP Serum or plasma urea nitrogen measurement (mass/volume ) 12 mg/dL SP 7-18 SP Serum or plasma creatinine measurement (mass/volume) 0.66 mg/dL SP 0.60-1.30 SP Serum or plasma urea nitrogen/creatinine mass ratio 18 NRG SP Serum or plasma creatinine measurement w ith calculation of estimated glomerular SP rate > NRG SP Serum or plasma glucose measurement (mass/volume) 85 mg/dL SP105 Serum or plasma calcium measurement (mass/volume) 9.0 mg/dL SP10.1 Magnesium - 06/30/17 05:35 POS Magnesium 1.8 mg/dL 1.8-2.4 SP Lipid 1996 panel - 06/30/17 05:35 POS Serum or plasma triglyceride measurement (mass/volume) 108 mg/dL SP <150 SP Serum or plasma cholesterol measurement (mass/volume) 163 mg/dL SP < 200 SP Serum or plasma cholesterol in HDL measurement (mass/v olume) 53 mg/dL SP 40-60 SP Cholesterol in LDL [mass/volume] in serum or plasma by direct assay 94 SPmg/dL 1-129 SP Serum or plasma cholesterol in VLDL measurement (mass/ volume) 22 mg/dL SP 5-40 SP Serum or plasma lithium measurement (mol es/volume) - 06/30/17 05:35 POS BNP level 74.3 pg/mL <100.0 SP Automated blood complete blood count (he mogram) panel - 06/06/18 09:20 POS Blood leukocytes automated count (number/volume) 5.3 10*3/uL SP 4.3-11.0 SP Blood erythrocytes automated count (number/volume) 4.66 10*6/uL SP 4.35-5.85 SP Venous blood hemoglobin measurement (mass/volume) 13.1 g/dL SP16.0 Blood hematocrit (volume fraction) 41 % 35-52 SP Automated erythrocyte mean corpuscular volume 88 [ foz_us] SP99 Automated erythrocyte mean corpuscular h emoglobin (mass per erythrocyte) SP 28 pg 25-34 SP Automated erythrocyte mean corpuscular h emoglobin concentration measurement SP 32 g/dL 32-36 SP Automated erythrocyte distribution width ratio 14. 5 % 10.0- SP Automated blood platelet count (count/volume) 210 10*3/uL SP400 Automated blood platelet mean volume measurement 10.6 [foz_us] SP 7.4-10.4 SP Comprehensive metabolic panel - 06/06/18 09:20 POS Serum or plasma sodium measurement (moles/volume) 141 mmol/L SP 135-145 SP Serum or plasma potassium measurement (moles/volume) 4.0 mmol/L SP 3.6-5.0 SP Serum or plasma chloride measurement (moles/volume) 108 mmol/L SP 98-107 SP Carbon dioxide 26 mmol/L 21-32 SP Serum or plasma anion gap determination (moles/volume) 7 mmol/L SP 5-14 SP Serum or plasma urea nitrogen measurement (mass/volume ) 10 mg/dL SP 7-18 SP Serum or plasma creatinine measurement (mass/volume) 0.68 mg/dL SP 0.60-1.30 SP Serum or plasma urea nitrogen/creatinine mass ratio 15 NRG SP Serum or plasma creatinine measurement w ith calculation of estimated glomerular SP rate > NRG SP Serum or plasma glucose measurement (mass/volume) 87 mg/dL SP105 Serum or plasma calcium measurement (mass/volume) 9.5 mg/dL SP10.1 Serum or plasma total bilirubin measurement (mass/volu me) 0.6 mg/dL SP 0.1-1.0 SP Serum or plasma alkaline phosphatase umm surement (enzymatic activity/volume) SP 84 U/L 40-136 SP Serum or plasma aspartate aminotransfera se measurement (enzymatic SP 15 U/L 5-34 SP Serum or plasma alanine aminotransferase measurement (enzymatic activity/volume) SP 13 U/L 0-55 SP Serum or plasma protein measurement (mass/volume) 7.0 g/dL SP8.2 Serum or plasma albumin measurement (mass/volume) 3.8 g/dL SP4.5 CALCIUM CORRECTED 9.7 mg/dL 8.5-10.1 SP Magnesium - 06/06/18 09:20 POS Magnesium 2.1 mg/dL 1.8-2.4 SP THYROID STIMULATING HORMONE - 06/06/18 0 9:20 POS THYROID STIMULATING HORMONE 1.29 u[iU]/mL 0.35-4.94 SP Serum or plasma thyroxine (T4) free kimmie urement (mass/volume) - 06/06/18 09:20 POS Serum or plasma thyroxine (T4) free measurement (mass/ volume) 1.02 POS 0.70-1.48 SP Serum iron and total iron binding capaci ty panel - 06/06/18 09:20 POS Serum or plasma iron measurement (mass/volume) 109 % 35-180 SP Total iron binding capacity and transferrin saturation measurement 28 SP 15-50 SP Iron binding capacity [mass/volume] in serum or plasma 387 % SP 280-380 SP UIBC (unsaturated iron binding capacity) 278 % 55-450 SP Serum or plasma ferritin measurement (mass/volume) 35.5 % SP177.0 Serum or plasma thiamine measurement (ma ss/volume) - 06/06/18 09:20 POS Serum or plasma thiamine measurement (moles/volume) 114 % SP180 Cyanocobalamin measurement - 06/06/18 09 :20 POS Vitamin B12 190 pg/mL 190-1100 SP VITAMIN D 25-HYDROXY - 06/06/18 09:20 POS VITAMIN D 25-HYDROXY (TOTAL) 28.7 % 3 0.0-100.0 SP PREALBUMIN - 06/06/18 09:20 POS PREALBUM 16.6 % 18.0-37.0 SP Methicillin resistant Staphylococcus aur eus (MRSA) screening culture - 07/18/19 POS Methicillin resistant Staphylococcus aureus (MRSA) scr eening culture POS NRG SP Capillary blood glucose measurement by g lucometer (mass/volume) - 07/18/19 16:27 POS Capillary blood glucose measurement by glucometer (mas s/volume) 143 POS 70-110 SP Automated blood complete blood count (he mogram) panel - 07/18/19 19:30 POS Blood leukocytes automated count (number/volume) 10.3 10*3/uL SP 4.3-11.0 SP Blood erythrocytes automated count (number/volume) 4.59 10*6/uL SP 4.35-5.85 SP Venous blood hemoglobin measurement (mass/volume) 12.8 g/dL SP16.0 Blood hematocrit (volume fraction) 41 % 35-52 SP Automated erythrocyte mean corpuscular volume 88 [ foz_us] SP99 Automated erythrocyte mean corpuscular h emoglobin (mass per erythrocyte) SP 28 pg 25-34 SP Automated erythrocyte mean corpuscular h emoglobin concentration measurement SP 32 g/dL 32-36 SP Automated erythrocyte distribution width ratio 14. 0 % 10.0- SP Automated blood platelet count (count/volume) 214 10*3/uL SP400 Automated blood platelet mean volume measurement 11.4 [foz_us] SP 7.4-10.4 SP Whole blood basic metabolic panel - 06/26 01/11 19:30 POS Serum or plasma sodium measurement (moles/volume) 144 mmol/L SP 135-145 SP Serum or plasma potassium measurement (moles/volume) 4.4 mmol/L SP 3.6-5.0 SP Serum or plasma chloride measurement (moles/volume) 107 mmol/L SP 98-107 SP Carbon dioxide 22 mmol/L 21-32 SP Serum or plasma anion gap determination (moles/volume) 15 mmol/L SP 5-14 SP Serum or plasma urea nitrogen measurement (mass/volume ) 8 mg/dL SP 7-18 SP Serum or plasma creatinine measurement (mass/volume) 0.74 mg/dL SP 0.60-1.30 SP Serum or plasma urea nitrogen/creatinine mass ratio 11 NRG SP Serum or plasma creatinine measurement w ith calculation of estimated glomerular SP rate > NRG SP Serum or plasma glucose measurement (mass/volume) 155 mg/dL SP105 Serum or plasma calcium measurement (mass/volume) 9.0 mg/dL SP10.1 Capillary blood glucose measurement by g lucometer (mass/volume) - 07/18/19 20:08 POS Capillary blood glucose measurement by glucometer (mas s/volume) 128 POS 70-110 SP Capillary blood glucose measurement by g lucometer (mass/volume) - 07/19/19 01:09 POS Capillary blood glucose measurement by glucometer (mas s/volume) 118 POS 70-110 SP Automated blood complete blood count (he mogram) panel - 07/19/19 04:25 POS Blood leukocytes automated count (number/volume) 10.1 10*3/uL SP 4.3-11.0 SP Blood erythrocytes automated count (number/volume) 4.34 10*6/uL SP 4.35-5.85 SP Venous blood hemoglobin measurement (mass/volume) 12.1 g/dL SP16.0 Blood hematocrit (volume fraction) 38 % 35-52 SP Automated erythrocyte mean corpuscular volume 88 [ foz_us] SP99 Automated erythrocyte mean corpuscular h emoglobin (mass per erythrocyte) SP 28 pg 25-34 SP Automated erythrocyte mean corpuscular h emoglobin concentration measurement SP 32 g/dL 32-36 SP Automated erythrocyte distribution width ratio 13. 9 % 10.0- SP Automated blood platelet count (count/volume) 207 10*3/uL SP400 Automated blood platelet mean volume measurement 11.6 [foz_us] SP 7.4-10.4 SP Whole blood basic metabolic panel - 06/26 02/10 04:25 POS Serum or plasma sodium measurement (moles/volume) 143 mmol/L SP 135-145 SP Serum or plasma potassium measurement (moles/volume) 4.3 mmol/L SP 3.6-5.0 SP Serum or plasma chloride measurement (moles/volume) 109 mmol/L SP 98-107 SP Carbon dioxide 24 mmol/L 21-32 SP Serum or plasma anion gap determination (moles/volume) 10 mmol/L SP 5-14 SP Serum or plasma urea nitrogen measurement (mass/volume ) 8 mg/dL SP 7-18 SP Serum or plasma creatinine measurement (mass/volume) 0.70 mg/dL SP 0.60-1.30 SP Serum or plasma urea nitrogen/creatinine mass ratio 11 NRG SP Serum or plasma creatinine measurement w ith calculation of estimated glomerular SP rate > NRG SP Serum or plasma glucose measurement (mass/volume) 112 mg/dL SP105 Serum or plasma calcium measurement (mass/volume) 8.6 mg/dL SP10.1 Capillary blood glucose measurement by g lucometer (mass/volume) - 07/19/19 04:58 POS Capillary blood glucose measurement by glucometer (mas s/volume) 115 POS 70-110 SP Capillary blood glucose measurement by g lucometer (mass/volume) - 07/19/19 08:24 POS Capillary blood glucose measurement by glucometer (mas s/volume) 224 POS 70-110 SP Capillary blood glucose measurement by g lucometer (mass/volume) - 07/19/19 11:50 POS Capillary blood glucose measurement by glucometer (mas s/volume) 107 POS 70-110 SP Complete blood count (CBC) with automate d white blood cell (WBC) differential - POS 18:43 Blood leukocytes automated count (number/volume) 8.6 10*3/uL POS 4.3-11.0 SP Blood erythrocytes automated count (number/volume) 4.15 10*6/uL SP 4.35-5.85 SP Venous blood hemoglobin measurement (mass/volume) 11.5 g/dL SP16.0 Blood hematocrit (volume fraction) 36 % 35-52 SP Automated erythrocyte mean corpuscular volume 87 [ foz_us] SP99 Automated erythrocyte mean corpuscular h emoglobin (mass per erythrocyte) SP 28 pg 25-34 SP Automated erythrocyte mean corpuscular h emoglobin concentration measurement SP 32 g/dL 32-36 SP Automated erythrocyte distribution width ratio 13. 6 % 10.0- SP Automated blood platelet count (count/volume) 330 10*3/uL SP400 Automated blood platelet mean volume measurement 10.6 [foz_us] SP 7.4-10.4 SP Automated blood neutrophils/100 leukocytes 76 % 42-75 SP Automated blood lymphocytes/100 leukocytes 16 % 12-44 SP Blood monocytes/100 leukocytes 7 % 0-12 SP Automated blood eosinophils/100 leukocytes 1 % 0-10 SP Automated blood basophils/100 leukocytes 0 % 0-10 SP Blood neutrophils automated count (number/volume) 6.5 10*3 SP7.8 Blood lymphocytes automated count (number/volume) 1.3 10*3 SP4.0 Blood monocytes automated count (number/volume) 0. 6 10*3 SP1.0 Automated eosinophil count 0.1 10*3/uL 0 .0-0.3 SP Automated blood basophil count (count/volume) 0.0 10*3/uL SP0.1 Whole blood basic metabolic panel - 11/11/13 18:43 POS Serum or plasma sodium measurement (moles/volume) 142 mmol/L SP 135-145 SP Serum or plasma potassium measurement (moles/volume) 3.7 mmol/L SP 3.6-5.0 SP Serum or plasma chloride measurement (moles/volume) 106 mmol/L SP 98-107 SP Carbon dioxide 23 mmol/L 21-32 SP Serum or plasma anion gap determination (moles/volume) 13 mmol/L SP 5-14 SP Serum or plasma urea nitrogen measurement (mass/volume ) 7 mg/dL SP 7-18 SP Serum or plasma creatinine measurement (mass/volume) 0.71 mg/dL SP 0.60-1.30 SP Serum or plasma urea nitrogen/creatinine mass ratio 10 NRG SP Serum or plasma creatinine measurement w ith calculation of estimated glomerular SP rate > NRG SP Serum or plasma glucose measurement (mass/volume) 99 mg/dL SP105 Serum or plasma calcium measurement (mass/volume) 9.0 mg/dL SP10.1 Gram stain microscopy - 07/27/19 19:51 POS Gram stain microscopy NO BACTERIA SEEN NRG SP Bacteria identification in wound by cult ure - 07/27/19 19:51 POS Bacteria identification in wound by culture [id number] NRG SP FREE TEXT EXTERNAL SUSCEPTIBILITY REPORTED [id number] SP QUANTITY OF GROWTH FEW NRG SP 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 NRG SP FREE TEXT ENTRY 2 RESISTANT ORGANISM/CONTACT PRECA UTIONS SP CALL POSITIVES (F1 HELP) MRSA CALLED TO [facility] Y 1129/KD, REPORT SP NRG SP PBP2 METHICILLIN RESISTANT STAPH AUREUS/MRSA NRG SP Dirithromycin susceptibility test by dis k diffusion - 07/27/19 19:51 POS Oxacillin susceptibility test by minimum inhibitory co ncentration > SP NRG SP Clindamycin susceptibility test by minimum inhibitory concentration > SP NRG SP Erythromycin susceptibility test by minimum inhibitory concentration > SP NRG SP Trimethoprim/sulfamethoxazole susceptibi lity test by minimum SP <= NRG SP Vancomycin susceptibility test by minimum inhibitory c oncentration 1 SP NRG SP Levofloxacin susceptibility test by minimum inhibitory concentration > SP NRG SP Rifampin susceptibility test by minimum inhibitory con centration <= SP NRG SP Cefazolin susceptibility test by minimum inhibitory co ncentration > SP NRG SP Linezolid susceptibility test by minimum inhibitory co ncentration 2 SP NRG SP Penicillin G susceptibility test by minimum inhibitory concentration > SP NRG SP Minocycline susc BRANT <= NRG SP Encounters ACCT No. Visit Date/Time Discharge Status POS Pt. Type Provider Facility Loc./Un it POS Complaint POS [id number] 07/28/2019 16:28:00 17:48:00 SP DIS Outpatient TING HERNANDEZ APRN [facility] ER WOUND CHECK SP [id number] 07/27/2019 18:23:00 20:37:00 SP DIS Outpatient TING HERNANDEZ APRN [facility] ER REDNESS AROUND INCISI ON SP [id number] 07/18/2019 06:44:00 019 14:30:00 SP DIS Outpatient ANDRZEJ CHATTERJEE, OMARI [facility] SDC NON-HEALING WOUND, RECURRENT INFECTION SP [id number] 07/12/2019 10:13:00 019 10:15:00 SP DIS Outpatient ANDRZEJ CHATTERJEE, OMAIR [facility] PREOP NON-HEALING WOUND,RECURRENT INFECTION SP [id number] 06/06/2018 09:02:00 018 23:59:59 SP CLS Outpatient AURELIA ALVAREZ DO [facility] LAB HAD BARIATRIC SURGER Y SP [id number] 08/12/2017 19:50:00 017 06:20:00 SP DIS Outpatient SHANAE CHATTERJEE, LAISSON Cheung [facility] SLEEP RUBEN SP [id number] 06/29/2017 16:30:00 017 10:07:00 SP DIS Inpatient AURELIA ALVAREZ DO [facility] 4TH CHEST PAIN R/O MT SP [id number] 06/01/2016 14:55:00 016 14:50:00 SP DIS Inpatient ANDRZEJ CHATTERJEE, OMARI [facility] 4TH ABD HERNIA EARLY PARTIAL SMA LL BOWEL SP [id number] 09/05/2015 12:04:00 015 18:24:00 SP DIS Emergency PRIYANK HUTCHINS [facility] ER OVERDOSE SP [id number] 08/15/2014 13:00:00 014 23:59:59 SP CLS Preadmit LELAADARSH REESE DO [facility] RT COPD,RUBEN,SOB SP [id number] 04/17/2014 16:37:00 014 12:33:00 SP DIS Inpatient AURELIA ALVAREZ DO [facility] 4TH BRADYCARDIA, GENERAL IZED SP COPD [id number] 04/10/2014 11:18:00 014 23:59:59 SP CLS Outpatient AURELIA ALVAREZ DO [facility] LAB SHORT BOWEL SYNDROME SP [id number] 11/20/2012 17:39:00 SP Registration SP [id number] 11/07/2012 06:49:00 SP Registration SP [id number] 10/31/2012 11:43:00 SP Registration SP [id number] 10/30/2012 14:02:00 SP Registration SP [id number] 10/21/2012 23:33:00 SP Registration SP [id number] 12/01/2011 11:00:00 SP Registration SP [id number] 11/17/2011 21:08:00 SP Registration SP [id number] 09/03/2011 12:10:00 SP Registration SP [id number] 09/01/2011 10:39:00 SP Registration SP [id number] 08/24/2011 11:45:00 SP Registration SP [id number] 07/11/2011 21:26:00 SP Registration SP [id number] 12/13/2010 10:16:00 SP Registration SP [id number] 11/03/2010 08:44:00 SP Registration SP [id number] 10/20/2010 10:10:00 SP Registration SP [id number] 06/24/2010 11:18:00 SP Registration SP [id number] 06/18/2010 13:15:00 SP Registration SP [id number] 06/14/2010 15:43:00 SP Registration SP
== END 2019-07-27 20:37 | disposition home or self-care (01) ==
LOC: EDUNIT# 18:22 → ER 18:23
DX: L02.211 Cutaneous abscess of abdominal wall (principal); J44.9 Chronic obstructive pulmonary disease, unspecified; F41.9 Anxiety disorder, unspecified; Z98.890 Other specified postprocedural states; Z98.84 Bariatric surgery status; Z95.9 Presence of cardiac and vascular implant and graft, unspecified; Z82.49 Family history of ischemic heart disease and other diseases of the circulatory system; Z80.42 Family history of malignant neoplasm of prostate
CPT/HCPCS: 10061; 36415; 74177; 80048; 85025; 87070; 87077; 87186; 87205; 96365; 96375

== ENCOUNTER 2019-07-28 16:27 | Emergency (ER) | payer OTHER ==
[~2019-07-28] VITALS: Ht 160 cm; Wt 122.1 kg
[~2019-07-28 16:27] MED LIST changes: +CLIN300C11 PO
--- NOTE | 2019-07-28 17:12 | ED Integumentary General ---
General Chief Complaint: Skin/Wound Problems Stated Complaint: WOUND CHECK Nursing Triage Note: PT HERE FOR RECHECK OF WOUND ON ABD Source: patient Exam Limitations: no limitations History of Present Illness Date Seen by Provider: Jul 28, 2019 Time Seen by Provider: 17:10 Initial Comments To ER with reports of need for wound recheck. She was here last night for a postop abdominal wall abscess, some waldo were removed wound was aspirated Allergies and Home Medications Allergies Coded Allergies: No Known Drug Allergies (Unverified , 07/12/19) Home Medications Ascorbic Acid 500 Mg Tablet, 500 MG PO DAILY PRN for FOR COLDS, (Reported) Biotin 10 Mg Tablet, 10 MG PO DAILY, (Reported) Calcium Carbonate 600 Mg Tablet, 600 MG PO DAILY, (Reported) Cholecalciferol (Vitamin D3) 5,000 Unit Tablet, 5,000 UNIT PO DAILY, (Reported) Clindamycin HCl 300 Mg Capsule, 300 MG PO TID Prescribed by: TING HERNANDEZ on 07/27/192005 Cyanocobalamin (Vitamin B-12) 500 Mcg Tab.subl, 500 MCG SL DAILY, (Reported) Hydrocodone/Acetaminophen 1 Each Tablet, 1-2 TAB PO Q4H Prescribed by: EKTA KEE on 07/18/19 0831 Multivitamin 1 Each Tablet, 1 TAB PO DAILY, (Reported) Potassium Gluconate 99 Mg Tablet, 99 MG PO DAILY PRN for CRAMPS, (Reported) Patient Home Medication List Home Medication List Reviewed: Yes Review of Systems Review of Systems Constitutional: see HPI; No chills, No fever EENTM: see HPI Respiratory: no symptoms reported Cardiovascular: no symptoms reported Genitourinary: no symptoms reported Musculoskeletal: no symptoms reported Skin: see HPI Past Hevngpt-Qbwymo-Izpqnm Hx Patient Social History Alcohol Use: Denies Use Alcohol Beverage of Choice: Other Recreational Drug Use: No Smoking Status: Never a Smoker Type Used: Cigarettes 2nd Hand Smoke Exposure: No Recent Foreign Travel: No Contact w/Someone Who Travel: No Recent Hopitalizations: No Immunizations Up To Date Date of Influenza Vaccine: Nov 07, 2012 Seasonal Allergies Seasonal Allergies: No Past Medical History Surgeries: Yes (GASTRIC BYPASS, HERNIA (x2), X 3, HEART CATH (-)) Section, Gallbladder Respiratory: Yes (CPAP) Sleep Apnea, COPD Currently Using CPAP: No Cardiac: Yes (Hx Bradycardia as Asymptomatic Sick Sinus Syndrome) Neurological: No 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 Sexually Transmitted Disease: No Genitourinary: No Gastrointestinal: Yes (gastric bypass) Abdominal Hernia Musculoskeletal: Yes (MILD) Arthritis Endocrine: No HEENT: Yes (GLASSES, PARTIAL DENTURES) Loss of Vision: Denies Hearing Impairment: Denies Cancer: No Psychosocial: Yes Anxiety Integumentary: No Blood Disorders: No Adverse Reaction/Blood Tranf: No (N/A) Family Medical History Alcoholism Arthritis Atherosclerosis Cancer G8 BROTHER Chest pain 19 FATHER Congenital heart disease 19 FATHER Congestive heart failure 19 MOTHER G8 BROTHER Diabetes mellitus Family history: Arthritis G8 BROTHER Family history: Cardiovascular disease 19 FATHER Family history: Diabetes mellitus 19 MOTHER G8 BROTHER G8 BROTHER G8 BROTHER G8 BROTHER Family history: Hypertension 19 FATHER 19 MOTHER Family history: Osteoporosis 19 MOTHER G8 BROTHER History of - respiratory disease G8 BROTHER Hypertension Myocardial infarction 19 FATHER Myocardial infarction 19 FATHER Prostate cancer G8 BROTHER Psychosocial problem Visual disorder No Pertinent Family Hx Physical Exam Vital Signs Vital Signs - First Documented 07/28/19 16:33 Temp 36.6 Pulse 52 Resp 18 B/P (MAP) 139/53 Pulse Ox 97 Capillary Refill : General Appearance: WD/WN, no apparent distress HEENT: PERRL/EOMI, normal ENT inspection Neck: non-tender, full range of motion Respiratory: no respiratory distress, no accessory muscle use Neurologic/Psychiatric: alert, normal mood/affect Skin: normal color, warm/dry, other (there were lines drawn around the area of erythema yesterday, today the erythema has receded from these lines drawn by about 1 cm but is still fairly impressive. The packing was removed and replaced with total 15 feet of half-inch plain packing) Progress/Results/Core Measures Results/Orders Vital Signs/I&O 07/28/19 16:33 Temp 36.6 Pulse 52 Resp 18 B/P (MAP) 139/53 Pulse Ox 97 Departure Impression Primary Impression: Wound infection Disposition: 01 HOME, SELF-CARE Condition: Stable Departure-Patient Inst. Decision time for Depature: 17:44 Referrals: AURELIA ALVAREZ DO (PCP/Family) Primary Care Physician Patient Instructions: Wound Infection Add. Discharge Instructions: Call Dr. Abbasi tomorrow to make an appointment to be seen. All discharge instructions reviewed with patient and/or family. Voiced understanding. TING HERNANDEZ APRN Jul 28, 2019 17:11 POS
[2019-07-28 17:48] VITALS: BP 139/53
== END 2019-07-28 17:48 | disposition home or self-care (01) ==
LOC: EDUNIT# 16:27 → ER 16:28
DX: T81.40XA Infection following a procedure, unspecified, initial encounter (principal); J44.9 Chronic obstructive pulmonary disease, unspecified; G47.30 Sleep apnea, unspecified; F41.9 Anxiety disorder, unspecified; Z98.84 Bariatric surgery status; Z99.89 Dependence on other enabling machines and devices; Z98.890 Other specified postprocedural states; Z95.9 Presence of cardiac and vascular implant and graft, unspecified; Z82.49 Family history of ischemic heart disease and other diseases of the circulatory system; Z80.42 Family history of malignant neoplasm of prostate
CPT/HCPCS: 99281

== ENCOUNTER → 2019-08-28 | Outpatient (CLI) | payer OTHER ==
--- NOTE | 2019-08-28 17:28 | Diagnostic Imaging Report ---
INDICATION: Back pain Lumbar spine AP and lateral views of the lumbar spine shows a slight spondylolisthesis at L4-L5. Alignment otherwise normal. There is some sclerosis of the superior endplate of L1 and L2 which could be due to old superior endplate compression fractures but no evidence of acute fracture seen. IMPRESSION: Superior endplate compression deformities L1 and L2 that appears old. Grade 1 spondylolisthesis at L4-L5 and slight disc space narrowing at that level. No acute abnormality seen. Dictated by: Dictated on workstation # [id number]
== END ==
LOC: RAD 16:22
PROVIDERS: ATTEND Family Medicine
DX: M43.16 Spondylolisthesis, lumbar region (principal); M48.061 Spinal stenosis, lumbar region without neurogenic claudication; M43.8X6 Other specified deforming dorsopathies, lumbar region
CPT/HCPCS: 72100

== ENCOUNTER 2020-10-07 08:30 | Outpatient (RCR) | payer OTHER ==
[~2020-10-07 08:30] MED LIST changes: +ASCO500T17 PO; -ASCO500T6 PO; -CALC600T12 PO; +CLC600T PO; -CLIN300C11 PO; +CLIN300C12 PO; +HYDR-34 PO; -HYDR-3816 PO; +MULT-567 PO; -MULT1TAB69 PO
[2020-12-26] MEDS ORDERED: APIX5TAB PO (22:53)
[2020-12-26] MEDS ORDERED: DILT120C82 PO (22:53)
== END 2021-01-05 | disposition home or self-care (01) ==
LOC: CARD 08:30
PROVIDERS: ATTEND Physician Assistant
DX: R00.1 Bradycardia, unspecified (principal)
CPT/HCPCS: 93225; 93226

== ENCOUNTER 2020-12-26 19:19 | Emergency (ER) | payer OTHER ==
[~2020-12-26] VITALS: Ht 162.5 cm; Wt 124.7 kg
[2020-12-26] MEDS ORDERED: ENOXAPARIN 30 MG/0.3 ML (LOVENOX) SYR SC ONE (19:30)
[2020-12-26] MEDS ORDERED: ASPIRIN 81 MG CHEW (CHILDREN'S ASA) PO ONE (19:30)
[2020-12-26] MEDS ORDERED: ENOXAPARIN 100 MG/1 ML (LOVENOX) SYR SC ONE (19:30)
[2020-12-26 19:36] LABS: BASOPHILS % (AUTO) 1 % (0-10); EOSINOPHILS # (AUTO) 0.2 10^3/uL (0.0-0.3); EOSINOPHILS % (AUTO) 2 % (0-10); HEMATOCRIT 44 % (35-52); HEMOGLOBIN 13.5 g/dL (11.5-16.0); LYMPHOCYTES # (AUTO) 1.7 10^3/uL (1.0-4.0); LYMPHOCYTES % (AUTO) 21 % (12-44); MEAN CORPUSCULAR HEMOGLOBIN 28 pg (25-34); MEAN CORPUSCULAR HGB CONC 31 g/dL (32-36); MEAN CORPUSCULAR VOLUME 91 fL (80-99); MEAN PLATELET VOLUME 11.4 fL (9.0-12.2); MONOCYTES # (AUTO) 0.6 10^3/uL (0.0-1.0); MONOCYTES % (AUTO) 8 % (0-12); NEUTROPHILS # (AUTO) 5.5 10^3/uL (1.8-7.8); NEUTROPHILS % (AUTO) 68 % (42-75); PLATELET COUNT 236 10^3/uL (130-400); WHITE BLOOD COUNT 8.1 10^3/uL (4.3-11.0)
--- NOTE | 2020-12-26 19:37 | ED Cardiac General ---
History of Present Illness General Chief Complaint: Cardiac/General Problems Stated Complaint: AFIB, RVR Source: patient (LIMTED HISTORIAN ABOUT PAST MEDICAL HISTORY), EMS, old records (ALL PAST MEDICAL HISTORY IS FROM OLD CHARTS) History of Present Illness Date Seen by Provider: Dec 26, 2020 Time Seen by Provider: 19:21 Initial Comments PT ARRIVES VIA EMS FROM HOME PT STATES SHE HAS FELT FATIGUED ALL DAY STATES AROUND 1730 TONIGHT, SHE FELT LIKE HER HEART WAS RACING CHECKED HER PULSE AND IT WAS 130'S-140'S. STATES NORMALLY HER HEART RATE IS 40'S-50'S. PT STATES HER HEART RATE NEVER GETS ABOVE 50. EMS GAVE CARDIZEM 25 MG IV PRIOR TO ARRIVAL. HEART RATE DOWN TO 80'S ON ARRIVAL PT DENIES CHEST PAIN DENIES DIZZINESS OR SYNCOPE DENIES SHORTNESS OF BREATH NO SWEATS NO SWELLING IN LEGS/FEET OR PAIN IN CALVES NO NAUSEA/VOMITING NO HISTORY OF SIMILAR PT DENIES ANY MEDICAL PROBLEMS OF ANY KIND, AND STATES SHE DOES NOT TAKE ANY MEDICATIONS NO FEVER OR RECENT ILLNESS DENIES ALL COVID-19 SYMPTOMS NO KNOWN COVID-19 EXPOSURE, PT LIVES AT HOME WITH AND HE IS NOT ILL HAS NOT HAD COVID-19 VACCINATION PCP: DR. ALVAREZ MILD DISABILITIES TEACHER: DR. GERARD Allergies and Home Medications Allergies Coded Allergies: No Known Drug Allergies (Unverified , 12/26/20) Home Medications Apixaban 5 Mg Tablet, 5 MG PO BID Prescribed by: SHRUTHI LORENZ on 12/26/202252 Ascorbic Acid 500 Mg Tablet, 500 MG PO DAILY PRN for FOR COLDS, (Reported) Biotin 10 Mg Tablet, 10 MG PO DAILY, (Reported) Calcium Carbonate 600 Mg Tablet, 600 MG PO DAILY, (Reported) Cholecalciferol (Vitamin D3) 5,000 Unit Tablet, 5,000 UNIT PO DAILY, (Reported) Clindamycin HCl 300 Mg Capsule, 300 MG PO TID Prescribed by: TING HERNANDEZ on 07/27/192005 Cyanocobalamin (Vitamin B-12) 500 Mcg Tab.subl, 500 MCG SL DAILY, (Reported) Diltiazem HCl 120 Mg Cap.er.24h, 120 MG PO DAILY Prescribed by: SHRUTHI LORENZ on 12/26/202252 Hydrocodone Bit/Acetaminophen 1 Each Tablet, 1-2 TAB PO Q4H Prescribed by: EKTA KEE on 07/18/19 0831 Multivitamin 1 Each Tablet, 1 TAB PO DAILY, (Reported) Potassium Gluconate 99 Mg Tablet, 99 MG PO DAILY PRN for CRAMPS, (Reported) Patient Home Medication List Home Medication List Reviewed: Yes Review of Systems Review of Systems Constitutional: see HPI; No chills, No diaphoresis, No dizziness, No fever; malaise, weakness EENTM: No Symptoms Reported Respiratory: No Symptoms Reported; Denies Cough, Denies Orthopnea, Denies Shortness of Air Cardiovascular: See HPI; Denies Chest Pain, Denies Edema; Irregular Heart Rate; Denies Lightheadedness; Palpitations; Denies Syncope Gastrointestinal: No Symptoms Reported; Denies Abdominal Pain, Denies Diarrhea, Denies Nausea, Denies Vomiting Genitourinary: No Symptoms Reported Musculoskeletal: no symptoms reported Skin: no symptoms reported Psychiatric/Neurological: No Symptoms Reported; Denies Headache, Denies Numbness, Denies Paresthesia, Denies Tingling, Denies Weakness Endocrine: No Symptoms Reported Hematologic/Lymphatic: No Symptoms Reported Past Rumtgvw-Eztieb-Fpthax Hx Past Med/Social Hx: Reviewed and Corrections made Patient Social History Alcohol Use: Occasionally Uses Alcohol Beverage of Choice: Other Drug of Choice: DENIES Smoking Status: Former Smoker Type Used: Cigarettes 2nd Hand Smoke Exposure: No Recent Hopitalizations: No Immunizations Up To Date Date of Influenza Vaccine: Nov 07, 2012 Seasonal Allergies Seasonal Allergies: No Past Medical History Surgeries: Yes (GASTRIC BYPASS, HERNIA (x2), X 3, HEART CATH (-)) Abdominal, Cardiac, Section, Gallbladder Respiratory: Yes (REFUSES TO WEAR CPAP; PULMONARY HTN) Sleep Apnea, COPD Currently Using CPAP: No Cardiac: Yes (Hx Bradycardia as Asymptomatic Sick Sinus Syndrome) Neurological: No 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 Sexually Transmitted Disease: No Genitourinary: No Gastrointestinal: Yes (HERNIA REPAIR X 2; GASTRIC BYPASS) Abdominal Hernia Musculoskeletal: Yes Arthritis Endocrine: Yes (MORBID OBESITY) HEENT: Yes (GLASSES, PARTIAL DENTURES) Loss of Vision: Denies Hearing Impairment: Denies Cancer: No Psychosocial: Yes (HAS BEEN PRESCRIBED MEDS, BUT REFUSES TO TAKE--"AFRAID TO TAKE THEM" ) Anxiety, Depression Integumentary: Yes (WOUND INFECTIONS) Blood Disorders: No Adverse Reaction/Blood Tranf: No (N/A) Family Medical History Alcoholism Arthritis Atherosclerosis Cancer G8 BROTHER Chest pain 19 FATHER Congenital heart disease 19 FATHER Congestive heart failure 19 MOTHER G8 BROTHER Diabetes mellitus Family history: Arthritis G8 BROTHER Family history: Cardiovascular disease 19 FATHER Family history: Diabetes mellitus 19 MOTHER G8 BROTHER G8 BROTHER G8 BROTHER G8 BROTHER Family history: Hypertension 19 FATHER 19 MOTHER Family history: Osteoporosis 19 MOTHER G8 BROTHER History of - respiratory disease G8 BROTHER Hypertension Myocardial infarction 19 FATHER Myocardial infarction 19 FATHER Prostate cancer G8 BROTHER Psychosocial problem Visual disorder No Pertinent Family Hx PAST SURGICAL HISTORY: - X 3--1977, 1978, 1979 -CHOLECYSTECTOMY -HERNIA REPAIR X 4--HAD MESH WITH 3RD REPAIR IN 2016--WOUND BECAME CHRONICALLY INFECTED, THEN 07/18/2019 HAD MESH REMOVAL, LYSIS OF ADHESIONS, SMALL BOWEL RESECTION AND RECURRENT VENTRAL HERNIA REPAIR-BY DR. DONNELLY -LAPAROSCOPIC ITZEL-EN-Y GASTRIC BYPASS 2008 -CARDIAC CATHS 2006 AND 2012--NON-OCCLUSIVE DISEASE, NO INTERVENTIO -STRESS TEST 06/2017-NO ISCHEMIC CHANGES Physical Exam Vital Signs Vital Signs - First Documented 12/26/20 19:21 Temp 36.3 Pulse 81 Resp 18 B/P (MAP) 183/89 (120) Pulse Ox 96 O2 Delivery Room Air Capillary Refill : Height, Weight, BMI Height: 5'4.00" Weight: 280lbs. 0.0oz. 127.203321ex; 47.00 BMI Method:Stated General Appearance: No Apparent Distress, WD/WN, Obese (MORBIDLY OBESE), Other (TALKS AT LENGTH, DOES NOT APPEAR TO BE IN ANY DISCOMFORT OR DISTRESS) Neck: Normal Inspection; No Carotid Bruit; Other (UNABLE TO DETERMINE IF JVD IS PRESENT DUE TO BODY HABITUS) Respiratory: Normal Breath Sounds, No Accessory Muscle Use, No Respiratory Distress Cardiovascular: No Edema, No Murmur, Normal Peripheral Pulses, Irregularly Irregular Gastrointestinal: Non Tender, Soft, Other (UNABLE TO DETERMINE IF ORGANOMEGALY IS PRESENT DUE TO BODY HABITUS) Extremity: Normal Capillary Refill, Normal Range of Motion, Non Tender, No Calf Tenderness, No Pedal Edema Neurologic/Psychiatric: Alert, Oriented x3, No Motor/Sensory Deficits, Normal Mood/Affect, welding machine setter II-XII Norm as Tested Skin: Normal Color, Warm/Dry Progress/Results/Core Measures Results/Orders Lab Results Laboratory Tests Test 4/3/21 19:25 12/26/20 19:32 12/26/20 22:23 Range/Units White Blood Count 8.1 4.3-11.0 10^3/uL Red Blood Count 4.83 3.80-5.11 10^6/uL Hemoglobin 13.5 11.5-16.0 g/dL Hematocrit 44 35-52 % Mean Corpuscular Volume 91 80-99 fL Mean Corpuscular Hemoglobin 28 25-34 pg Mean Corpuscular Hemoglobin Concent 31 L 32-36 g/dL Red Cell Distribution Width 14.1 10.0-14.5 % Platelet Count 236 130-400 10^3/uL Mean Platelet Volume 11.4 9.0-12.2 fL Immature Granulocyte % (Auto) 0 % Neutrophils (%) (Auto) 68 42-75 % Lymphocytes (%) (Auto) 21 12-44 % Monocytes (%) (Auto) 8 0-12 % Eosinophils (%) (Auto) 2 0-10 % Basophils (%) (Auto) 1 0-10 % Neutrophils # (Auto) 5.5 1.8-7.8 10^3/uL Lymphocytes # (Auto) 1.7 1.0-4.0 10^3/uL Monocytes # (Auto) 0.6 0.0-1.0 10^3/uL Eosinophils # (Auto) 0.2 0.0-0.3 10^3/uL Basophils # (Auto) 0.0 0.0-0.1 10^3/uL Immature Granulocyte # (Auto) 0.0 0.0-0.1 10^3/uL Prothrombin Time 13.3 12.2-14.7 SEC INR Comment 1.0 0.8-1.4 Activated Partial Thromboplast Time 29 24-35 SEC Sodium Level 146 H 135-145 MMOL/L Potassium Level 3.9 3.6-5.0 MMOL/L Chloride Level 110 H 98-107 MMOL/L Carbon Dioxide Level 23 21-32 MMOL/L Anion Gap 13 5-14 MMOL/L Blood Urea Nitrogen 12 7-18 MG/DL Creatinine 0.77 0.60-1.30 MG/DL Estimat Glomerular Filtration Rate > 60 BUN/Creatinine Ratio 16 Glucose Level 101 70-105 MG/DL Calcium Level 9.5 8.5-10.1 MG/DL Corrected Calcium 9.5 8.5-10.1 MG/DL Magnesium Level 1.8 1.6-2.4 MG/DL Total Bilirubin 0.3 0.1-1.0 MG/DL Aspartate Amino Transf (AST/SGOT) 17 5-34 U/L Alanine Aminotransferase (ALT/SGPT) 18 0-55 U/L Alkaline Phosphatase 98 40-136 U/L Total Creatine Kinase 97 29-168 U/L Creatine Kinase MB 1.0 <6.6 NG/ML Myoglobin 35.2 10.0-92.0 NG/ML Troponin I < 0.028 < 0.028 <0.028 NG/ML B-Type Natriuretic Peptide 74.3 <100.0 PG/ML Total Protein 7.4 6.4-8.2 GM/DL Albumin 4.0 3.2-4.5 GM/DL TSH [place] Testing 1.53 0.35-4.94 UIU/ML Urine Color YELLOW Urine Clarity CLEAR Urine pH 5.5 5-9 Urine Specific [place] 1.015 L 1.016-1.022 Urine Protein NEGATIVE NEGATIVE Urine Glucose (UA) NEGATIVE NEGATIVE Urine Ketones NEGATIVE NEGATIVE Urine Nitrite NEGATIVE NEGATIVE Urine Bilirubin NEGATIVE NEGATIVE Urine Urobilinogen 0.2 < = 1.0 MG/DL Urine Leukocyte Esterase TRACE H NEGATIVE Urine RBC (Auto) NEGATIVE NEGATIVE Urine RBC NONE /HPF Urine WBC RARE /HPF Urine Squamous Epithelial Cells 0-2 /HPF Urine Crystals NONE /LPF Urine Bacteria NEGATIVE /HPF Urine Casts NONE /LPF Urine Mucus NEGATIVE /LPF Urine Culture Indicated NO My Orders Orders - SHRUTHI LORENZ DO Ed Iv/Invasive Line Start (12/26/20 19:30) Ekg Tracing (12/26/20 19:30) Monitor-Rhythm Ecg Trace Only (12/26/20:30) BNP (12/26/20 19:30) Cbc With Automated Diff (12/26/20:30) Comprehensive Metabolic Panel (12/26/20:30) Creatine Kinase (12/26/20 19:30) Creatine Kinase Mb (12/26/20:30) Magnesium (12/26/20 19:30) Protime With Inr (12/26/20 19:30) Partial Thromboplastin Time (12/26/20 19:30) Thyroid Analyzer (4/3/21 19:30) Ua Culture If Indicated (12/26/20 19:30) Myoglobin Serum (12/26/20 19:30) Troponin I (12/26/20 19:30) Chest 1 View, Ap/Pa Only (12/26/20 19:30) Aspirin Chewable Tablet (Baby Aspirin Ch (12/26/20 19:30) Enoxaparin Injection (Lovenox Injection) (12/26/20 19:30) Enoxaparin Injection (Lovenox Injection) (12/26/20 19:30) Ekg Tracing (12/26/20 20:23) Diltiazem Cd 24 Hr Capsule (Cardizem Cd (12/26/20 20:45) Troponin I (12/26/20 22:28) Ekg Tracing (12/26/20 22:28) Medications Given in ED Current Medications Medications Dose Ordered Sig/Garth Route Start Time Stop Time Status Last Admin Dose Admin Aspirin 324 mg ONCE ONCE PO 12/26/20 19:30 12/26/20 19:34 DC 12/26/20 19:40 324 MG Enoxaparin Sodium 30 mg ONCE ONCE SC 12/26/20 19:30 12/26/20 19:34 DC 12/26/20 19:40 30 MG Enoxaparin Sodium 100 mg ONCE ONCE SC 12/26/20 19:30 12/26/20 19:34 DC 12/26/20 19:40 100 MG Vital Signs/I&O 12/26/20 12/26/20 19:21 23:21 Temp 36.3 Pulse 81 46 Resp 18 18 B/P (MAP) 183/89 (120) 124/78 (120) Pulse Ox 96 96 O2 Delivery Room Air Room Air Progress Progress Note : Progress Note GIVEN ASPIRIN AND LOVENOX 2022--PT SPONTANEOUSLY CONVERTED TO SINUS RHYTHM, RATE IN UPPER 40'S WHICH IS PT'S NORMAL BASELINE HEART RATE PT OBSERVED IN ER FOR OVER 3 HOURS, REPEAT EKG AND TROPONIN WERE DONE--TROPONIN NEGATIVE AND PT STILL IN SINUS RHYTHM, AND PT HAS NO COMPLAINTS Initial ECG Impression Date: Dec 26, 2020 Initial ECG Impression Time: 19:25 Initial ECG Rate: 79 Initial ECG Rhythm: A Fib/Flutter Initial ECG Comparisson: Changed (FROM NSR ON PREVIOUS EKG'S) EKG : EKG Time: 20:24 Rate: 49 Rhythm: S.Grant Comment EKG #3 AT 2218--RATE 45, SINUS BRADYCARDIA. NO ACUTE CHANGES Diagnostic Imaging Comments CXR--NO ACUTE PROCESS, PER RADIOLOGIST REPORT AT 1950 Reviewed: Reviewed by Me Departure Communication (Admissions) 2028--SPOKE WITH DR. GOMEZ, PT HAS SELF CONVERTED, WILL START ON PO CARDIZEM AND ELIQUIS, AND OBSERVE IN ER. IF PT REMAINS IN NSR, WILL SEND HOME AND FOLLOW UP WITH DR. GERARD IN OFFICE ON MONDAY, IF PT GOES BACK INTO ATRIAL FIBRILLATION, WILL ADMIT. Impression Primary Impression: New onset atrial fibrillation Disposition: HOME, SELF-CARE Condition: Improved Departure-Patient Inst. Referrals: AURELIA ALVAREZ DO (PCP/Family) Primary Care Physician JOSELUIS GERARD MD Patient Instructions: Atrial Fibrillation (DC), Going Home on Blood Thinners Add. Discharge Instructions: HOME, REST FOLLOW UP WITH DR. GERARD ON MONDAY--CALL FIRST THING ON MONDAY MORNING TO SCHEDULE APPOINTMENT RETURN TO ER IF SYMPTOMS RETURN All discharge instructions reviewed with patient and/or family. Voiced understanding. Scripts Apixaban (Eliquis) 5 Mg Tablet 5 MG PO BID, #60 TAB Prov: SHRUTHI LORENZ DO 12/26/20 Diltiazem HCl (Cardizem Cd) 120 Mg Cap.er.24h 120 MG PO DAILY, #30 CAP Prov: SHRUTHI LORENZ DO 12/26/20 SHRUTHI LORENZ DO Dec 26, 2020 19:37
[2020-12-26 19:41] LABS: BILIRUBIN,URINE NEGATIVE (NEGATIVE); CLARITY,URINE CLEAR; COLOR,URINE YELLOW; GLUCOSE, URINE (UA) NEGATIVE (NEGATIVE); KETONES,URINE NEGATIVE (NEGATIVE); LEUKOCYTE ESTERASE ,URINE TRACE (NEGATIVE); NITRITE,URINE NEGATIVE (NEGATIVE); PH,URINE 5.5 (5-9); PROTEIN,URINE NEGATIVE (NEGATIVE)
--- NOTE | 2020-12-26 19:50 | Diagnostic Imaging Report ---
EXAMINATION: Chest radiograph, portable AP view. DATE: 12/26/2020 7:48 PM INDICATION: 65-year-old female, atrial fibrillation. COMPARISON: June 29, 2017. FINDINGS: Heart size and mediastinal contours are unchanged. There is no identified pneumothorax. There is no large pleural effusion. There is no identified focal airspace consolidation. IMPRESSION: No identified acute cardiopulmonary abnormality. Dictated by: Dictated on workstation # [id number]
[2020-12-26 19:52] LABS: BACTERIA,URINE NEGATIVE /HPF; SQUAMOUS EPITHELIAL CELL,UR 0-2 /HPF; WBC,URINE RARE /HPF
[2020-12-26 19:58] LABS: PROTHROMBIN TIME PATIENT 13.3 SEC (12.2-14.7)
[2020-12-26 20:00] LABS: ALANINE AMINOTRANSFERASE 18 U/L (0-55); ALKALINE PHOSPHATASE 98 U/L (40-136); BILIRUBIN,TOTAL 0.3 MG/DL (0.1-1.0); CALCIUM 9.5 MG/DL (8.5-10.1); CARBON DIOXIDE 23 MMOL/L (21-32); CHLORIDE 110 MMOL/L (98-107); CREATINE KINASE 97 U/L (29-168); GLUCOSE 101 MG/DL (70-105); MAGNESIUM 1.8 MG/DL (1.6-2.4); POTASSIUM 3.9 MMOL/L (3.6-5.0); SODIUM 146 MMOL/L (135-145); TOTAL PROTEIN 7.4 GM/DL (6.4-8.2)
[2020-12-26 20:21] LABS: TSH (THYROID ANALYZER) 1.53 UIU/ML (0.35-4.94)
[2020-12-26] MEDS ORDERED: dilTIAZem120 MG (CARDIZEM CD) CAP PO SCH (20:45)
[2020-12-26 20:49] LABS: BUN/CREATININE RATIO 16; CREATININE SERUM 0.77 MG/DL (0.60-1.30); GFR ESTIMATED > 60
[2020-12-26] MEDS ORDERED: DILT120C82 PO (22:53)
[2020-12-26] MEDS ORDERED: APIX5TAB PO (22:53)
[2020-12-26 23:21] VITALS: BP 124/78
== END 2020-12-26 23:21 | disposition home or self-care (01) ==
LOC: EDUNIT# 19:19 → ER 19:20
DX: I48.91 Unspecified atrial fibrillation (principal); I27.20 Pulmonary hypertension, unspecified; E66.01 Morbid (severe) obesity due to excess calories; J44.9 Chronic obstructive pulmonary disease, unspecified; Z87.891 Personal history of nicotine dependence; Z98.84 Bariatric surgery status; Z95.9 Presence of cardiac and vascular implant and graft, unspecified
CPT/HCPCS: 36415; 71045; 80053; 81000; 82550; 82553; 83735; 83874; 83880; 84443; 84484; 85025; 85610; 85730; 93005; 93041

== ENCOUNTER → 2021-01-04 | Outpatient (CLI) | payer OTHER ==
[~2021-01-04] MED LIST changes: +APIX5TAB PO; +DILT120C82 PO
== END ==
LOC: CARD 08:37
PROVIDERS: ATTEND Physician Assistant
DX: I48.0 Paroxysmal atrial fibrillation (principal); I11.9 Hypertensive heart disease without heart failure
CPT/HCPCS: 93225; 93226; 93306

== ENCOUNTER 2021-01-20 14:02 | Day surgery (SDC) | payer OTHER ==
[~2021-01-20] VITALS: Ht 160 cm; Wt 127.2 kg
[~2021-01-20 14:02] MED LIST changes: -CATHETER FLUSH 10 ML SYR IV PRN; -FLEC100T PO; -REGADENOSON 0.4 MG/5 ML SYR (LEXISCAN) IV ONE
[2021-01-20 14:29] LABS: BASOPHILS % (AUTO) 0 % (0-10); EOSINOPHILS # (AUTO) 0.2 10^3/uL (0.0-0.3); EOSINOPHILS % (AUTO) 2 % (0-10); HEMATOCRIT 42 % (35-52); HEMOGLOBIN 13.1 g/dL (11.5-16.0); LYMPHOCYTES # (AUTO) 1.6 10^3/uL (1.0-4.0); LYMPHOCYTES % (AUTO) 23 % (12-44); MEAN CORPUSCULAR HEMOGLOBIN 28 pg (25-34); MEAN CORPUSCULAR HGB CONC 31 g/dL (32-36); MEAN CORPUSCULAR VOLUME 90 fL (80-99); MEAN PLATELET VOLUME 11.4 fL (9.0-12.2); MONOCYTES # (AUTO) 0.4 10^3/uL (0.0-1.0); MONOCYTES % (AUTO) 6 % (0-12); NEUTROPHILS # (AUTO) 4.7 10^3/uL (1.8-7.8); NEUTROPHILS % (AUTO) 68 % (42-75); PLATELET COUNT 217 10^3/uL (130-400); WHITE BLOOD COUNT 6.9 10^3/uL (4.3-11.0)
--- NOTE | 2021-01-20 14:30 | ED Cardiac General ---
History of Present Illness General Chief Complaint: Cardiac/General Problems Stated Complaint: POSSIBLE AFIB Source: patient Exam Limitations: no limitations History of Present Illness Date Seen by Provider: Jan 20, 2021 Time Seen by Provider: 14:05 Initial Comments Patient is a 65-year-old female who presents to the emergency department today with a chief complaint of palpitations and possible A. fib. Patient had a chemical stress test done earlier this morning by Dr. Rosas. She then went home and went to [employer] to run a couple of errands came home and ate 2 slices of p hasmukh and took her evening medications. Patient states she then felt her heart "racing" and checked her heart rate at home and it was in the 140s. Patient denies any chest pain associated with this. She is not short of breath she is not nauseated. She had a similar episode of palpitations/A. fib about a month ago. She was started on a beta-radha and Cardizem. She was here for the stress test as a result of that hospitalization last month. She is chronically anticoagulated on Eliquis. States that she is compliant with this medication. No recent illnesses such as fevers, chills cough or congestion. No other GI or symptoms reported. Dr. Rosas did call the ER to let us know that he was going to take the patient to the [facility] [employer] as her stress test was grossly abnormal this morning. He came down to the ER shortly thereafter to see the patient. He is agreeable with 20 mg of Cardizem IV push at this time. All other review of systems reviewed and negative except as stated. Timing/Duration: 1/2 hour Severity: moderate Activities at Onset: activity Prior CP/Workup: cardiolye scan NTG SL ADMISSION NURSE COORDINATOR: No ASA po ADMISSION NURSE COORDINATOR: No Associated Systoms: Denies Symptoms Allergies and Home Medications Allergies Coded Allergies: No Known Drug Allergies (Unverified , 12/26/20) Home Medications Apixaban 5 Mg Tablet, 5 MG PO BID Prescribed by: SHRUTHI LORENZ on 12/26/20 8400 Last Action: Reviewed Ascorbic Acid 500 Mg Tablet, 500 MG PO DAILY PRN for FOR COLDS, (Reported) Biotin 10 Mg Tablet, 10 MG PO DAILY, (Reported) Calcium Carbonate 600 Mg Tablet, 600 MG PO DAILY, (Reported) Cholecalciferol (Vitamin D3) 5,000 Unit Tablet, 5,000 UNIT PO DAILY, (Reported) Clindamycin HCl 300 Mg Capsule, 300 MG PO TID Prescribed by: TING HERNANDEZ on 07/27/192005 Cyanocobalamin (Vitamin B-12) 500 Mcg Tab.subl, 500 MCG SL DAILY, (Reported) Diltiazem HCl 120 Mg Cap.er.24h, 120 MG PO DAILY Prescribed by: SHRUTHI LORENZ on 12/26/202252 Last Action: Reviewed Flecainide Acetate 100 Mg Tablet, 50 MG PO BID Prescribed by: JOSELUIS ROSAS on 01/21/21 0610 Hydrocodone Bit/Acetaminophen 1 Each Tablet, 1-2 TAB PO Q4H Prescribed by: EKTA KEE on 07/18/19 0831 Multivitamin 1 Each Tablet, 1 TAB PO DAILY, (Reported) Potassium Gluconate 99 Mg Tablet, 99 MG PO DAILY PRN for CRAMPS, (Reported) Patient Home Medication List Home Medication List Reviewed: Yes Review of Systems Review of Systems Constitutional: see HPI EENTM: No Symptoms Reported Respiratory: No Symptoms Reported Cardiovascular: Palpitations Gastrointestinal: No Symptoms Reported Genitourinary: No Symptoms Reported Musculoskeletal: no symptoms reported Skin: no symptoms reported Psychiatric/Neurological: No Symptoms Reported All Other Systems Reviewed Negative Unless Noted: Yes Past Reylmhb-Mbogon-Ldolej Hx Patient Social History Alcohol Beverage of Choice: Other Drug of Choice: DENIES Type Used: Cigarettes 2nd Hand Smoke Exposure: No Recent Hopitalizations: No Immunizations Up To Date Tetanus Booster (TDap): Unknown Date of Influenza Vaccine: Nov 07, 2012 Seasonal Allergies Seasonal Allergies: No Past Medical History Surgeries: Yes (GASTRIC BYPASS, HERNIA (x2), X 3, HEART CATH (-)) Abdominal, Cardiac, Section, Gallbladder Respiratory: Yes (REFUSES TO WEAR CPAP; PULMONARY HTN) Sleep Apnea, COPD Currently Using CPAP: No Cardiac: Yes (Hx Bradycardia as Asymptomatic Sick Sinus Syndrome) Neurological: No 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 Sexually Transmitted Disease: No Genitourinary: No Gastrointestinal: Yes (HERNIA REPAIR X 2; GASTRIC BYPASS) Abdominal Hernia Musculoskeletal: Yes Arthritis Endocrine: Yes (MORBID OBESITY) HEENT: Yes (GLASSES, PARTIAL DENTURES) Loss of Vision: Denies Hearing Impairment: Denies Cancer: No Psychosocial: Yes (HAS BEEN PRESCRIBED MEDS, BUT REFUSES TO TAKE--"AFRAID TO TAKE THEM" ) Anxiety, Depression Integumentary: Yes (WOUND INFECTIONS) Blood Disorders: No Adverse Reaction/Blood Tranf: No (N/A) Family Medical History Alcoholism Arthritis Atherosclerosis Cancer G8 BROTHER Chest pain 19 FATHER Congenital heart disease 19 FATHER Congestive heart failure 19 MOTHER G8 BROTHER Diabetes mellitus Family history: Arthritis G8 BROTHER Family history: Cardiovascular disease 19 FATHER Family history: Diabetes mellitus 19 MOTHER G8 BROTHER G8 BROTHER G8 BROTHER G8 BROTHER Family history: Hypertension 19 FATHER 19 MOTHER Family history: Osteoporosis 19 MOTHER G8 BROTHER History of - respiratory disease G8 BROTHER Hypertension Myocardial infarction 19 FATHER Myocardial infarction 19 FATHER Prostate cancer G8 BROTHER Psychosocial problem Visual disorder No Pertinent Family Hx PAST SURGICAL HISTORY: - X 3--1977, 1978, 1979 -CHOLECYSTECTOMY -HERNIA REPAIR X 4--HAD MESH WITH 3RD REPAIR IN 2015--WOUND BECAME CHRONICALLY INFECTED, THEN 07/18/2019 HAD MESH REMOVAL, LYSIS OF ADHESIONS, SMALL BOWEL RESECTION AND RECURRENT VENTRAL HERNIA REPAIR-BY DR. DONNELLY -LAPAROSCOPIC ITZEL-EN-Y GASTRIC BYPASS 2008 -CARDIAC CATHS 2006 AND 2012--NON-OCCLUSIVE DISEASE, NO INTERVENTIO -STRESS TEST 06/2017-NO ISCHEMIC CHANGES Physical Exam Vital Signs Vital Signs - First Documented 01/20/21 14:22 Pulse 142 Resp 18 B/P (MAP) 146/119 (128) Pulse Ox 96 Capillary Refill : Height, Weight, BMI Height: 5'4.00" Weight: 280lbs. 0.0oz. 127.277705zu; 49.60 BMI Method:Stated General Appearance: No Apparent Distress, WD/WN HEENT: PERRL/EOMI Neck: Normal Inspection Respiratory: Lungs Clear, Normal Breath Sounds, No Accessory Muscle Use Cardiovascular: Regular Rate, Rhythm, Normal Peripheral Pulses, Irregularly I rregular, Tachycardia Gastrointestinal: Non Tender, Soft Extremity: Normal Capillary Refill, Normal Inspection, Non Tender Neurologic/Psychiatric: Alert, Oriented x3, No Motor/Sensory Deficits, Normal Mood/Affect Skin: Normal Color, Warm/Dry Progress/Results/Core Measures Results/Orders Lab Results Laboratory Tests Test 01/20/21 14:12 Range/Units White Blood Count 6.9 4.3-11.0 10^3/uL Red Blood Count 4.70 3.80-5.11 10^6/uL Hemoglobin 13.1 11.5-16.0 g/dL Hematocrit 42 35-52 % Mean Corpuscular Volume 90 80-99 fL Mean Corpuscular Hemoglobin 28 25-34 pg Mean Corpuscular Hemoglobin Concent 31 L 32-36 g/dL Red Cell Distribution Width 14.3 10.0-14.5 % Platelet Count 217 130-400 10^3/uL Mean Platelet Volume 11.4 9.0-12.2 fL Immature Granulocyte % (Auto) 0 % Neutrophils (%) (Auto) 68 42-75 % Lymphocytes (%) (Auto) 23 12-44 % Monocytes (%) (Auto) 6 0-12 % Eosinophils (%) (Auto) 2 0-10 % Basophils (%) (Auto) 0 0-10 % Neutrophils # (Auto) 4.7 1.8-7.8 10^3/uL Lymphocytes # (Auto) 1.6 1.0-4.0 10^3/uL Monocytes # (Auto) 0.4 0.0-1.0 10^3/uL Eosinophils # (Auto) 0.2 0.0-0.3 10^3/uL Basophils # (Auto) 0.0 0.0-0.1 10^3/uL Immature Granulocyte # (Auto) 0.0 0.0-0.1 10^3/uL Sodium Level 144 135-145 MMOL/L Potassium Level 3.5 L 3.6-5.0 MMOL/L Chloride Level 110 H 98-107 MMOL/L Carbon Dioxide Level 22 21-32 MMOL/L Anion Gap 12 5-14 MMOL/L Blood Urea Nitrogen 9 7-18 MG/DL Creatinine 0.80 0.60-1.30 MG/DL Estimat Glomerular Filtration Rate > 60 BUN/Creatinine Ratio 11 Glucose Level 155 H 70-105 MG/DL Calcium Level 9.1 8.5-10.1 MG/DL My Orders Orders - KEAGAN EWING MD Diltiazem Injection (Cardizem Injection) (01/20/21 14:30) Ed Iv/Invasive Line Start (01/20/21 14:24) Cbc With Automated Diff (01/20/21 14:24) Basic Metabolic Panel (01/20/21 14:24) Ekg Tracing (01/20/21 14:24) Vital Signs/I&O 01/20/21 14:22 Pulse 142 Resp 18 B/P (MAP) 146/119 (128) Pulse Ox 96 Progress Progress Note : Time: 14:[address] Rosas in the department to see the patient. She had grossly abnormal Chemical stress test earlier, with hypokinesis of the entire anterior wall. He is taking her to the bundle tier and labeler now. Initial ECG Impression Date: Jan 20, 2021 Initial ECG Impression Time: 14:05 Initial ECG Rate: 137 Initial ECG Rhythm: A Fib/Flutter Initial ECG Impression: Nonspecific Changes Departure Communication (Admissions) Time/Spoke to Admitting Phy: 14:[address] Rosas. He is taking her to the bundle tier and labeler Impression Primary Impression: Atrial fibrillation with RVR Additional Impression: Abnormal stress ECG Disposition: ADMITTED INPATIENT Condition: Stable Admissions Decision to Admit Reason: Admit from ER (General) Decision to Admit/Date: Jan 20, 2021 Time/Decision to Admit Time: 14:28 Departure-Patient Inst. Referrals: [facility] (PCP) Primary Care Physician ALLISON CHEATHAM APRN (Family) Primary Care Physician Scripts Flecainide Acetate (Flecainide Acetate) 100 Mg Tablet 50 MG PO BID, #60 TAB 2 Refills Prov: JOSELUIS ROSAS MD 01/21/21 KEAGAN EWING MD Jan 20, 2021 14:30
[2021-01-20] MEDS ORDERED: MIDAZOLAM 5 MG/5 ML (VERSED) VIAL ONE (14:31)
[2021-01-20] MEDS ORDERED: LIDOCAINE 1% INJ 20 ML 20 ML VIAL ONE (14:32)
[2021-01-20] MEDS ORDERED: fentaNYL INJ 100 MCG/2 ML AMP ONE (14:32)
[2021-01-20] MEDS ORDERED: HEParin (CATH LAB) 2,000 ML IV ONE (14:32)
[2021-01-20 14:40] LABS: BUN/CREATININE RATIO 11; CALCIUM 9.1 MG/DL (8.5-10.1); CARBON DIOXIDE 22 MMOL/L (21-32); CHLORIDE 110 MMOL/L (98-107); GFR ESTIMATED > 60; GLUCOSE 155 MG/DL (70-105); POTASSIUM 3.5 MMOL/L (3.6-5.0); SODIUM 144 MMOL/L (135-145)
[2021-01-20] MEDS ORDERED: NS IV 1000 ML 1,000 ML ONE (14:49)
--- NOTE | 2021-01-20 15:38 | Cardiology History & Physical ---
HPI-Cardiology Cardiology Consultation Date of Consultation 01/20/21 Date of Admission Time Seen by Provider: 15:00 Indication: Chest pain palpitation HPI 65-year-old lady seen in my office for chest pain, had a Lexiscan stress test done this morning which was grossly abnormal, patient went home and returned to the emergency room with palpitation was in atrial fibrillation with rapid ventricular response having some chest pain. Given diltiazem IV. Due to the fact that she has significantly abnormal stress test we decided to proceed with cardiac catheterization PMH-Cardiology Immunizations Up To Date Tetanus Booster (DTap): Unknown Date of Influenza Vaccine: Nov 07, 2012 Seasonal Allergies Seasonal Allergies: No Surgeries Yes (GASTRIC BYPASS, HERNIA (x2), X 3, HEART CATH (-)) Gall Bladder, Section Respiratory Yes (REFUSES TO WEAR CPAP; PULMONARY HTN) COPD Cardiovascular Yes (Hx Bradycardia as Asymptomatic Sick Sinus Syndrome) High Cholesterol, Hypertension, Valvular Heart Disease Neurological No Reproductive System Hx Reproductive Disorders: No Sexually Transmitted Disease: No Menopausal Genitourinary No Gastrointestinal Yes (HERNIA REPAIR X 2; GASTRIC BYPASS) Abdominal Hernia Musculoskeletal Yes Arthritis Endocrine Yes (MORBID OBESITY) HEENT Yes (GLASSES, PARTIAL DENTURES) Loss of Vision: Denies Hearing Impairment: Denies Cancer No Psychosocial Yes (HAS BEEN PRESCRIBED MEDS, BUT REFUSES TO TAKE--"AFRAID TO TAKE THEM" ) Anxiety, Depression Integumentary Yes (WOUND INFECTIONS) Blood Transfusions No Adverse Rxn to Transfusion: No (N/A) Other PMHx Discussed below Social History Patient Social History Marrital Status: Dip or chew tobacco?: No Family Hx Significant Family History: No Pertinent Family Hx Family History: 19 FATHER Chest pain Congenital heart disease Family history: Cardiovascular disease Family history: Hypertension Myocardial infarction 19 MOTHER Congestive heart failure Family history: Diabetes mellitus Family history: Hypertension Family history: Osteoporosis G8 BROTHER Congestive heart failure Family history: Arthritis Family history: Diabetes mellitus History of - respiratory disease G8 BROTHER Family history: Diabetes mellitus Family history: Osteoporosis G8 BROTHER Family history: Diabetes mellitus G8 BROTHER Cancer Family history: Diabetes mellitus Prostate cancer Relation not specified for: Alcoholism Arthritis Atherosclerosis Diabetes mellitus Hypertension Myocardial infarction Psychosocial problem Visual disorder ROS-Cardiology Review of Systems General: No Chills, No Night Sweats, No Fatigue, No Malaise, No Appetite HEENT: No Head Aches, No Visual Changes, No Eye Pain, No Ear Pain, No Dy sphasia, No Sinus Congestion, No Post Nasal Drip, No Sore Throat Pulmonary: Dyspnea; No Cough, No Pleuritic Chest Pain Cardiovascular: Chest Pain, Palpitations; No: Orthopnea, Paroxysmal Noc. Dyspnea, Edema, Lt Headedness Gastrointestinal: No: Nausea, Vomiting, Abdominal Pain, Diarrhea, Constipation, Melena, Hematochezia Genitourinary: No Dysuria, No Frequency, No Incontinence, No Hematuria, No Retention Musculoskeletal: No: neck pain, shoulder pain, arm pain, back pain, hand pain, leg pain, foot pain Neurological: No: Weakness, Numbness, Incoordination, Change in speech, Confusion, Seizures Home Medications & Allergies Allergies: Coded Allergies: No Known Drug Allergies (Unverified , 12/26/20) Home Medication List Reviewed: Yes Exam-Cardiology Vital Signs Vital Signs Date Time Temp Pulse Resp B/P (MAP) Pulse Ox O2 Delivery O2 Flow Rate FiO2 01/20/21 14:45 85 18 187/88 97 Room Air Exam General Appearance: Alert, Oriented X3, Cooperative, No Acute Distress HEENT: Atraumatic, PERRLA Respiratory: Clear to Auscultation, Normal Air Movement Cardiovascular: Normal S1, Normal S2, No Murmurs, Other (Atrial fibrillation) Abdominal: Normal Bowel Sounds, Soft, No Tenderness, No Hepatosplenomegaly, No Masses Extremities: No Clubbing, No Cyanosis, No Edema, Normal Pulses, No Tenderness/Swelling Skin: No Rashes, No Breakdown, No Significant Lesion Neuro: Normal Gait, Normal Speech, Strength at 5/5 X4 Ext, Normal Tone, Sensation Intact Psych/Mental Status: Mental Status NL, Mood NL Results Labs Labs Laboratory Tests 01/20/21 14:12: White Blood Count 6.9, Red Blood Count 4.70, Hemoglobin 13.1, Hematocrit 42, Mean Corpuscular Volume 90, Mean Corpuscular Hemoglobin 28, Mean Corpuscular Hemoglobin Concent 31L, Red Cell Distribution Width 14.3, Platelet Count 217, Mean Platelet Volume 11.4, Immature Granulocyte % (Auto) 0, Neutrophils (%) (Auto) 68, Lymphocytes (%) (Auto) 23, Monocytes (%) (Auto) 6, Eosinophils (%) (Auto) 2, Basophils (%) (Auto) 0, Neutrophils # (Auto) 4.7, Lymphocytes # (Auto) 1.6, Monocytes # (Auto) 0.4, Eosinophils # (Auto) 0.2, Basophils # (Auto) 0.0, Immature Granulocyte # (Auto) 0.0, Sodium Level 144, Potassium Level 3.5L, Chloride Level 110H, Carbon Dioxide Level 22, Anion Gap 12, Blood Urea Nitrogen 9, Creatinine 0.80, Estimat Glomerular Filtration Rate > 60, BUN/Creatinine Ratio 11, Glucose Level 155H, Calcium Level 9.1 A/P-Cardiology Admission Diagnosis Paroxysmal atrial fibrillation Chest pain Coronary artery disease Hypertension Hyperlipidemia Admission Status: Observation Assessment/Plan Atrial fibrillation with rapid ventricular response, patient has been on Eliquis and diltiazem, given IV Cardizem in the ER, converted to sinus rhythm in the [employer] [facility]. I will start her on flecainide 50 mg twice daily. Increased risk of stroke, multiple risk factors, maintained on Eliquis. Chest pain, history of recurrent chest pain, had an abnormal stress test with anterior wall ischemia, taken to the [employer] [facility] for cardiac catheterization which showed mild to moderate disease nonobstructive disease. Continue to monitor Hypertension, maintained on diltiazem, monitor Hyperlipidemia, evaluate lipid profile Sinus node dysfunction, episode of sinus bradycardia prior to conversion to sinus rhythm, had baseline heart rate in the 50s. Continue to monitor COPD, obstructive sleep apnea using CPAP at night Mild bilateral carotid stenosis nonobstructive disease. Hyperglycemia, prediabetes. Managed by primary care physician Morbid obesity, BMI 49, discussed weight loss Clinical Quality Measures AMI/AHF: ASA po Prior to arrival: JOSELUIS Lynn MD Jan 20, 2021 15:38
--- NOTE | 2021-01-20 15:38 | Conscious Sedation/ASA ---
Conscious Sedation Pre-Proced Time 15:00 ASA Score 3 For ASA 3 and 4: Consider anesthesia and medical clearance. Also, for patients with a history of failed moderate sedation consider anesthesia. Airway Lungs Heart ASA score ASA 1: a normal healthy patient ASA 2: a patient with a mild systemic disease (mid diabetes, controlled hypertension, obesity x ASA 3: a patient with a severe systemic disease that limits activity (angina, COPD, prior Myocardial infarction) ASA 4: a patient with an incapacitating disease that is a constant threat to life (CHF, renal failure) ASA 5: a moribund patient not expected to survive 24 hrs. (ruptured aneurysm) ASA 6: a declared brain- patient whose organs are being harvested. For emergent operations, add the letter E after the classification Mallampati Classification Grade 3 Sedation Plan Analgesia, Amnesia, Plan communicated to team members, Discussed options with patient/fam, Discussed risks with patient/fam The patient is an appropriate candidate to undergo the planned procedure, sedation, and anesthesia. The patient immediately re-assessed prior to indication. JOSELUIS GERARD MD Jan 20, 2021 15:38
[2021-01-20] MEDS ORDERED: PATIENT MAY USE OWN MEDS, ALL PO SCH (15:45)
--- NOTE | 2021-01-20 15:51 | Cardiac Cath Report ---
Cardiac Cath Report Physician (s)/Lifter Driver (s) Physician JOSELUIS GERARD MD Pre-Procedure Diagnosis Pre-Procedure Diagnosis: Chest pain, coronary artery disease Post-Procedure Note Procedure Start Date: Jan 20, 2021 Name of Procedure: Left heart catheterization Findings/Procedure Note PROCEDURE NOTE: 65-year-old lady with paroxysmal atrial fibrillation had an abnormal stress test this morning, return to the emergency room with chest pain and atrial fibrillation with rapid ventricular response. Decided to proceed with cardiac catheterization possible PTCA. After explaining the procedure to the patient, all pros and cons were explained, all questions were answered. The patient signed the consent and then she was placed on the cardiac catheterization laboratory. Groin was prepped SL fashion local anesthesia was used. Sheath placed in the right femoral artery. Sheyla right and left catheter were used to access the coronary system. Pigtail was used to access the left ventricular cavity. Left ventriculogram was not done, pressure was measured At the end of the procedure the sheath was removed. Closure device was deployed FINDINGS: Hemodynamics LV 125/20, end-diastolic pressure of 20 Aorta 125/72 mean of 93 ANATOMY: Left Main is free of obstructive disease Left Anterior Descending has mild disease nonobstructive disease Left Circumflex has no obstructive disease Right Coronory Artery has mild disease no obstructive disease LV Gram was not done, pressure was measured CONCLUSION: 1. Mild coronary artery disease nonobstructive disease 2. Mildly elevated left ventricular end-diastolic pressure 3. Patient converted to sinus rhythm during the procedure DISCUSSION AND RECOMMENDATION: Patient continue on aspirin and Eliquis, I will add flecainide for her paroxysmal atrial fibrillation Anesthesia Type: Conscious Sedation Estimated blood loss (mL): 15 ml Contrast Amount: 44 ml Total Radiation Dose: 500 mGy Post-Procedure Diagnosis Post-operative diagnosis: Chest pain Coronary artery disease Paroxysmal atrial fibrillation Hypertension JOSELUIS GERARD MD Jan 20, 2021 15:51
[2021-01-20] MEDS: NS IV 1000 ML 1,000 ML IV SCH (16:36)
[2021-01-20 20:00] VITALS: BP 119/64
[2021-01-20] MEDS: FLECAINIDE 100 MG (TAMBOCOR) TAB PO SCH (22:46)
[2021-01-20] MEDS: APIXABAN 5 MG (ELIQUIS) TABLET PO SCH (22:46)
[2021-01-21] VITALS: BP 136/55
[2021-01-21] MEDS: NS IV 1000 ML 1,000 ML IV SCH (02:08)
[2021-01-21 03:50] LABS: HEMOGLOBIN 10.9 g/dL (11.5-16.0); MEAN PLATELET VOLUME 11.6 fL (9.0-12.2)
[2021-01-21 04:00] VITALS: BP 134/57
[2021-01-21 04:18] LABS: BUN/CREATININE RATIO 11; CALCIUM 8.4 MG/DL (8.5-10.1); CARBON DIOXIDE 24 MMOL/L (21-32); CHLORIDE 112 MMOL/L (98-107); CHOLESTEROL 139 MG/DL (< 200); CREATININE SERUM 0.65 MG/DL (0.60-1.30); GFR ESTIMATED > 60; GLUCOSE 87 MG/DL (70-105); HDL CHOLESTEROL 54 MG/DL (40-60); POTASSIUM 3.9 MMOL/L (3.6-5.0); SODIUM 144 MMOL/L (135-145); TRIGLYCERIDES 70 MG/DL (<150); VLDL CHOLESTEROL 14 MG/DL (5-40)
[2021-01-21] MEDS ORDERED: FLEC100T PO (06:10)
--- NOTE | 2021-01-21 06:11 | Discharge Inst-Post CATH ---
Discharge Inst-CATH/EP Problems Reviewed?: Yes Post Cardiac Cath/EP D/C Inst Follow Up/Plan Appointment with Dr Rosas in 2-4 weeks <b>CARDIAC CATH/EP PROCEDURE DISCHARGE INSTRUCTIONS</b> ACTIVITY * Go Home directly and rest. * Limit activity of the leg (or wrist if it was used) for 7 days including aerobics, swimming, jogging, bicycling, etc. * Restrict stair-climbing for 7 days if possible, if not, climb up with your non-cath leg, then bring together on the same step. * Avoid lifting, pushing, pulling or excessive movement of the affected extremity for 7 days. * Customary sexual activity may be resumed after 2 days-use caution not to use a position that strains or causes pain to the affected extremity. * No driving for 24 hours. * NO SMOKING. * Avoid straining for bowel movements for 7 days. * Gentle walking on level ground is allowed. * Returning to work will depend on the type of procedure and the results. Your doctor will discuss this with you. CALL YOUR DOCTOR FOR ANY OF THE FOLLOWING: *If bleeding from the puncture site occurs- Apply gentle pressure to site with clean cloth and call your doctor or EMS. * If a knot or lump forms under the skin, increases in size, or causes pain. * If bruising appears to be worsening or moving further down your leg instead of disappearing. * Temperature above 101 F. CARE OF YOUR GROIN INCISION; * Bruising or purple discoloration of the skin near the puncture site is common. * You may shower only, no bathtub bathing for 5 days. Be careful to avoid slipping as your leg may feel stiff. * If a closure device was used on your femoral artery, please see the attached guide regarding care of the device and your leg. * Leave dressing on FOR 24 hours. CARE OF YOUR WRIST INCISION; * Bruising or purple discoloration of the skin near the puncture site is common. * You may shower. * DO NOT submerge wrist. * Leave dressing on FOR 24 hours. JOSELUIS ROSAS MD Jan 21, 2021 06:11
--- NOTE | 2021-01-21 07:58 | Cardiology Progress Note ---
Subjective Date Seen by Provider: Jan 21, 2021 Time Seen by Provider: 08:40 Subjective/Events-last exam Patient was seen at bedside, laying down comfortably, no new complaint Review of Systems General: No Chills, No Night Sweats, No Fatigue, No Malaise, No Appetite, No Other HEENT: No Head Aches, No Visual Changes, No Eye Pain, No Ear Pain, No Dysphasia, No Sinus Congestion, No Post Nasal Drip, No Sore Throat, No Other Pulmonary: No Dyspnea, No Cough, No Pleuritic Chest Pain, No Other Cardiovascular: No: Chest Pain, Palpitations, Orthopnea, Paroxysmal Noc. Dyspnea, Edema, Lt Headedness, Other Objective-Cardiology Exam Last Set of Vital Signs Vital Signs 01/21/21 08:08 Temp 36.0 Pulse 43 Resp 16 B/P (MAP) 148/73 (98) Pulse Ox 96 O2 Delivery Room Air Capillary Refill : NONE I&O Intake and Output 01/21/21 00:00 Intake Total 1300 ml Balance 1300 ml Intake Oral 300 ml IV Total 1000 ml # Voids 3 Daily Weight Change No General: Alert, Oriented X3, Cooperative, No Acute Distress HEENT: Atraumatic, PERRLA Neck: Supple Lungs: Clear to Auscultation, Normal Air Movement Heart: Regular Rate, Normal S1, Normal S2, No Murmurs Abdomen: Normal Bowel Sounds, Soft, No Tenderness, No Hepatosplenomegaly, No Masses Extremities: No Clubbing, No Cyanosis, No Edema, Normal Pulses, No Tenderness/Swelling Skin: No Rashes, No Breakdown, No Significant Lesion Neuro: Normal Gait, Normal Speech, Strength at 5/5 X4 Ext, Normal Tone, Sensation Intact Psych/Mental Status: Mental Status NL, Mood NL Results Lab Laboratory Tests 01/20/21 14:12 01/21/21 03:20 A/P-Cardiology Admission Diagnosis Paroxysmal atrial fibrillation Chest pain Coronary artery disease Hypertension Hyperlipidemia Assessment/Plan Atrial fibrillation with rapid ventricular response, patient has been on Eliquis and diltiazem, given IV Cardizem in the ER, converted to sinus rhythm in the [facility] [employer]. He was started on flecainide 50 mg twice daily Bradycardia, discontinue metoprolol and monitor tolerance and response Increased risk of stroke, multiple risk factors, maintained on Eliquis. Chest pain, history of recurrent chest pain, had an abnormal stress test with anterior wall ischemia, taken to the [facility] [employer] [facility] for cardiac catheterization which showed mild to moderate disease nonobstructive disease. Continue to monitor Hypertension, maintained on diltiazem, monitor Hyperlipidemia, evaluate lipid profile Sinus node dysfunction, episode of sinus bradycardia prior to conversion to sinus rhythm, had baseline heart rate in the 50s. Continue to monitor COPD, obstructive sleep apnea using CPAP at night Mild bilateral carotid stenosis nonobstructive disease. Hyperglycemia, prediabetes. Managed by primary care physician Morbid obesity, BMI 49, discussed weight loss Clinical Quality Measures AMI/AHF: ASA po Prior to arrival: JOSELUIS Lynn MD Jan 21, 2021 07:58
[2021-01-21] MEDS: FLECAINIDE 100 MG (TAMBOCOR) TAB PO SCH (08:06)
[2021-01-21] MEDS: APIXABAN 5 MG (ELIQUIS) TABLET PO SCH (08:06)
[2021-01-21 08:08] VITALS: BP 148/73
[2021-01-21] MEDS ORDERED: PANTOPRAZOLE 40 MG (PROTONIX) TAB PO SCH (09:00)
[2021-01-21] MEDS ORDERED: ASPIRIN E.C. 81 MG (ECOTRIN) TAB PO SCH (09:00)
== END 2021-01-21 10:00 | disposition home or self-care (01) ==
LOC: EDUNIT# 14:02 → ER 14:04 → CATH 14:29 → CSD 15:55 → CATH 01-21 10:00
PROVIDERS: ATTEND Internal Medicine Cardiovascular Disease
DX: I25.10 Atherosclerotic heart disease of native coronary artery without angina pectoris (principal); I48.0 Paroxysmal atrial fibrillation; I10 Essential (primary) hypertension; J44.9 Chronic obstructive pulmonary disease, unspecified; G47.30 Sleep apnea, unspecified; I49.5 Sick sinus syndrome; M19.90 Unspecified osteoarthritis, unspecified site; F41.9 Anxiety disorder, unspecified; F32.9 Major depressive disorder, single episode, unspecified; E78.00 Pure hypercholesterolemia, unspecified; E78.5 Hyperlipidemia, unspecified; I65.23 Occlusion and stenosis of bilateral carotid arteries; E72.51 Non-ketotic hyperglycinemia; E66.01 Morbid (severe) obesity due to excess calories; Z68.42 Body mass index [BMI] 45.0-49.9, adult; Z79.899 Other long term (current) drug therapy; Z80.9 Family history of malignant neoplasm, unspecified; Z83.3 Family history of diabetes mellitus
CPT/HCPCS: 80048 ×2; 80061; 85025; 85027; 93005 ×2; 93458; 99285; C1760; C1894; 36415

== ENCOUNTER → 2021-01-20 | Outpatient (CLI) | payer OTHER ==
[~2021-01-20] VITALS: Ht 160 cm; Wt 127.0 kg
[~2021-01-20] MED LIST changes: +CALC600T91 PO; +CATHETER FLUSH 10 ML SYR IV PRN; -CLC600T PO; +FLEC100T PO; +REGADENOSON 0.4 MG/5 ML SYR (LEXISCAN) IV ONE
[2021-01-20 08:56] VITALS: BP 155/84
--- NOTE | 2021-01-20 14:32 | Cardiology Stress Test Report ---
Stress Test Report Date of Procedure/Referring: Date of Procedure: Jan 20, 2021 Kim Sharma Admitting Physician Erik Jolly DO Indications: Atrial fibrillation Baseline Heart Rate: 47 Baseline Blood Pressure: Blood Pressure Systolic: 155 Blood Pressure Diastolic: 84 Baseline Vitals Vital Signs Date Time Temp Pulse Resp B/P (MAP) Pulse Ox O2 Delivery O2 Flow Rate FiO2 01/20/21 08:56 47 17 155/84 (107) 97 Room Air Baseline EKG: Baseline EKG: NSR Summary After explaining the procedure to the patient, she signed a consent and then brought to the stress nuclear laboratory. Patient received 0.4 mg Lexiscan for stress test, ECG, heart rate and blood pressure were monitored continuously. Resting and stress dose of radio tracer were injected, imaging was acquired and reviewed in short axis, horizontal long axis and vertical long axis views. TID: 1.01 SSS: 18 SDS: 13 EF: 52 1. Patient tolerated Lexiscan well 2. Breast attenuation with reversible ischemia involving the whole anterior w all and anterior apical segment 3. Normal left ventricular size, EF 52% JOSELUIS GERARD MD Jan 20, 2021 14:32
== END ==
LOC: CARD 07:45
PROVIDERS: ATTEND Physician Assistant
DX: I10 Essential (primary) hypertension (principal); I48.0 Paroxysmal atrial fibrillation
CPT/HCPCS: 78452; 93017; A9502

== ENCOUNTER 2021-01-29 16:01 | Emergency (ER) | payer OTHER ==
[~2021-01-29] VITALS: Ht 162.5 cm; Wt 172.4 kg
[~2021-01-29 16:01] MED LIST changes: +FLEC100T PO
[2021-01-29] MEDS ORDERED: fentaNYL INJ 100 MCG/2 ML AMP ONE (16:28)
[2021-01-29 16:31] LABS: HEMOGLOBIN 11.6 g/dL (11.5-16.0); MEAN PLATELET VOLUME 11.6 fL (9.0-12.2); WHITE BLOOD COUNT 9.6 10^3/uL (4.3-11.0)
[2021-01-29 16:32] LABS: CHLORIDE 107 MMOL/L (98-107); POTASSIUM 3.7 MMOL/L (3.6-5.0); SODIUM 143 MMOL/L (135-145)
[2021-01-29 16:33] LABS: ALBUMIN 3.7 GM/DL (3.2-4.5)
[2021-01-29 16:34] LABS: CALCIUM 8.5 MG/DL (8.5-10.1)
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
[2021-01-29 16:35] LABS: GLUCOSE 110 MG/DL (70-105); TOTAL PROTEIN 6.8 GM/DL (6.4-8.2)
[2021-01-29 16:36] LABS: CARBON DIOXIDE 27 MMOL/L (21-32)
[2021-01-29 16:37] LABS: BILIRUBIN,TOTAL 0.4 MG/DL (0.1-1.0)
[2021-01-29 16:38] LABS: PHOSPHORUS 3.6 MG/DL (2.3-4.7)
[2021-01-29 16:39] LABS: ALKALINE PHOSPHATASE 87 U/L (40-136); CREATININE SERUM 0.68 MG/DL (0.60-1.30); GFR ESTIMATED > 60
[2021-01-29 16:40] LABS: BILIRUBIN,DIRECT 0.2 MG/DL (0.0-0.3); BILIRUBIN,INDIRECT 0.2 MG/DL; BUN/CREATININE RATIO 15
[2021-01-29] MEDS ORDERED: fentaNYL INJ 100 MCG/2 ML AMP IVP STA ×2 (16:41→18:48)
[2021-01-29 16:42] LABS: ALANINE AMINOTRANSFERASE 46 U/L (0-55); MAGNESIUM 1.9 MG/DL (1.6-2.4)
[2021-01-29 16:43] LABS: BILIRUBIN,URINE NEGATIVE (NEGATIVE); CLARITY,URINE CLEAR; COLOR,URINE YELLOW; GLUCOSE, URINE (UA) NEGATIVE (NEGATIVE); KETONES,URINE NEGATIVE (NEGATIVE); LEUKOCYTE ESTERASE ,URINE NEGATIVE (NEGATIVE); NITRITE,URINE NEGATIVE (NEGATIVE); PH,URINE 5.5 (5-9); PROTEIN,URINE 1+ (NEGATIVE)
[2021-01-29] MEDS ORDERED: HOLD METFORMIN - RECEIVED CONTRAST 20 ML VIAL IV SCH (16:45)
[2021-01-29] MEDS ORDERED: NS 100 ML (IVPB) BAG IV ONE (16:45)
[2021-01-29] MEDS ORDERED: TETANUS,DIPTH,PERTUSS P/F (BOOSTRIX) 0.5 ML VIAL IM ONE (16:45)
[2021-01-29] MEDS ORDERED: IOHEXOL 350 MG/ML 100 ML (OMNIPAQUE 350) VIAL IV ONE (16:45)
[2021-01-29 16:55] LABS: BACTERIA,URINE NEGATIVE /HPF; GRANULAR CASTS,URINE 0-2 /LPF; HYALINE CASTS, URINE 0-2 /LPF; RBC,URINE 25-50 /HPF
[2021-01-29 16:56] LABS: AMPHETAMINE SCREEN, URINE NEGATIVE (NEGATIVE); BARBITURATE SCREEN URINE NEGATIVE (NEGATIVE); BENZODIAZEPINES SCREEN URINE NEGATIVE (NEGATIVE); CANNABINOID SCREEN, URINE NEGATIVE (NEGATIVE); COCAINE SCREEN URINE NEGATIVE (NEGATIVE); METHADONE STAT NEGATIVE (NEGATIVE); METHAMPHETAMINE SCREEN URINE S NEGATIVE (NEGATIVE); OPIATE SCREEN URINE NEGATIVE (NEGATIVE); OXYCODONE STAT NEGATIVE (NEGATIVE); PROPOXYPHENE STAT NEGATIVE (NEGATIVE); TRICYCLIC ANTIDEPRESSANTS SCRE NEGATIVE (NEGATIVE)
[2021-01-29 17:12] LABS: FIBRIN DEGRADATION PRODUCTS 3.54 UG/ML (0.00-0.49); INR 1.1 (0.8-1.4); PROTHROMBIN TIME PATIENT 14.8 SEC (12.2-14.7)
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
[2021-01-29] MEDS ORDERED: LIDOCAINE 1% INJ 20 ML 20 ML VIAL INJ ONE ×2 (17:45)
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
[2021-01-29] MEDS ORDERED: fentaNYL INJ 100 MCG/2 ML AMP IVP ONE ×2 (18:30→20:25)
[2021-01-29] MEDS ORDERED: ceFAZolin 2 GM IV Premixed 50 ML IV ONE (19:00)
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
[2021-01-29 20:30] VITALS: BP 121/54
== END 2021-01-29 20:30 ==
LOC: EDUNIT# 16:01 → ER 16:02
DX: S52.572A Other intraarticular fracture of lower end of left radius, initial encounter for closed fracture (principal); S52.602A Unspecified fracture of lower end of left ulna, initial encounter for closed fracture; S82.842A Displaced bimalleolar fracture of left lower leg, initial encounter for closed fracture; S82.201A Unspecified fracture of shaft of right tibia, initial encounter for closed fracture; S82.401A Unspecified fracture of shaft of right fibula, initial encounter for closed fracture; S22.31XA Fracture of one rib, right side, initial encounter for closed fracture; S01.01XA Laceration without foreign body of scalp, initial encounter; S27.321A Contusion of lung, unilateral, initial encounter; J44.9 Chronic obstructive pulmonary disease, unspecified; I48.91 Unspecified atrial fibrillation; E66.01 Morbid (severe) obesity due to excess calories; Z87.891 Personal history of nicotine dependence; Z68.42 Body mass index [BMI] 45.0-49.9, adult; Z79.01 Long term (current) use of anticoagulants; Z23 Encounter for immunization; V89.2XXA Person injured in unspecified motor-vehicle accident, traffic, initial encounter
CPT/HCPCS: 29505; 29515; 51702; 70450; 71045; 71260; 72125; 72170; 73080; 73130; 73562; 73590; 73610; 74177; 80048; 80076; 80306; 81000; 83735; 84100; 84703; 85027; 85379; 85384; 85610; 85730; 86850; 86900; 86901; 93041; 99291; G0480; 36415; 80320; 90715

== ENCOUNTER → 2021-09-08 | Outpatient (CLI) | payer OTHER ==
[~2021-09-08] MED LIST changes: +CLIN-144 PO; -CLIN300C12 PO; -POTA99TA21 PO; +POTA99TA26 PO
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
== END ==
LOC: RAD 13:17
PROVIDERS: ATTEND Nurse Practitioner
DX: G93.89 Other specified disorders of brain (principal); I48.91 Unspecified atrial fibrillation
CPT/HCPCS: 70551

== ENCOUNTER 2021-09-19 16:13 | Emergency (ER) | payer OTHER ==
[~2021-09-19] VITALS: Ht 160 cm; Wt 125.0 kg
--- NOTE | 2021-09-19 17:18 | Diagnostic Imaging Report ---
EXAMINATION: Chest radiograph, portable AP view. DATE: 09/19/2021 5:14 PM. INDICATION: 66-year-old female, cough. COMPARISON: January 29, 2021. FINDINGS: Heart size and mediastinal contours are unchanged. There is no identified pneumothorax. There is no large pleural effusion. There is no identified focal airspace consolidation. IMPRESSION: No identified acute cardiopulmonary abnormality. Dictated by: Dictated on workstation # [id number]
--- NOTE | 2021-09-19 18:00 | ED General ---
General Chief Complaint: Cough/Cold/Flu Symptoms Stated Complaint: EPISODE OF ELEV HR/HX OF AFIB/COUGH/CONGESTION Nursing Triage Note: PT STATES SHE JUST GOT BACK ON THE 24TH FROM A CRUISE. FEELS CONGESTION IN HER CHEST. HX OF A-FIB Source of Information: Patient Exam Limitations: No Limitations (TING HERNANDEZ APRN) History of Present Illness Date Seen by Provider: Sep 19, 2021 Time Seen by Provider: 17:59 Timing/Duration: 3-4 Days Severity: Moderate Associated Systoms: Cough (TING HERNANDEZ APRN) Allergies and Home Medications Allergies Coded Allergies: No Known Drug Allergies (Unverified , 12/26/20) Patient Home Medication List Home Medication List Reviewed: Yes (TING HERNANDEZ APRN) Apixaban (Eliquis) 5 Mg Tablet, 5 MG PO BID Prescribed by: SHRUTHI LORENZ on 12/26/202252 Ascorbic Acid (Vitamin C) 500 Mg Tablet, 500 MG PO DAILY PRN for FOR COLDS, (Reported) Entered as Reported by: BONG BENITEZ on 06/30/17932 Baloxavir Marboxil (Xofluza) 80 Mg Tablet, 80 MG PO ONCE Prescribed by: TING HERNANDEZ on 09/19/21 184 Biotin (Biotin) 10 Mg Tablet, 10 MG PO DAILY, (Reported) Entered as Reported by: BONG BENITEZ on 06/30/17932 Calcium Carbonate (Calcium) 600 Mg Tablet, 600 MG PO DAILY, (Reported) Entered as Reported by: VIANEY MENDEZ on 06/01/16 1639 Cholecalciferol (Vitamin D3) (Vitamin D3) 5,000 Unit Tablet, 5,000 UNIT PO DAILY, (Reported) Entered as Reported by: VIANEY MENDEZ on 06/01/16 1639 Clindamycin HCl (Clindamycin HCl) 300 Mg Capsule, 300 MG PO TID Prescribed by: TING HERNANDEZ on 07/27/192005 Cyanocobalamin (Vitamin B-12) (Vitamin B-12) 500 Mcg Tab.subl, 500 MCG SL DAILY, (Reported) Entered as Reported by: BONG BENITEZ on 06/30/17932 Diltiazem HCl (Cardizem Cd) 120 Mg Cap.er.24h, 120 MG PO DAILY Prescribed by: SHRUTHI LORENZ on 4/3/21 2253 Flecainide Acetate (Flecainide Acetate) 100 Mg Tablet, 50 MG PO BID Prescribed by: JOSELUIS GERARD on 01/21/21 0610 Hydrocodone Bit/Acetaminophen (HYDROcodone/APAP 7.5/325 TAB) 1 Each Tablet, 1-2 TAB PO Q4H Prescribed by: EKTA KEE on 07/18/19 0831 Multivitamin (Multivitamins) 1 Each Tablet, 1 TAB PO DAILY, (Reported) Entered as Reported by: VIANEY MENDEZ on 06/01/16 1639 Potassium Gluconate (Potassium) 99 Mg Tablet, 99 MG PO DAILY PRN for CRAMPS, (Reported) Entered as Reported by: BONG BENITEZ on 06/30/17 0933 Review of Systems Review of Systems Constitutional: see HPI EENTM: see HPI Respiratory: no symptoms reported Cardiovascular: no symptoms reported Genitourinary: no symptoms reported Musculoskeletal: no symptoms reported Skin: no symptoms reported Psychiatric/Neurological: No Symptoms Reported Hematologic/Lymphatic: No Symptoms Reported Immunological/Allergic: no symptoms reported (TING HERNANDEZ APRN) Past Knbzxgz-Jhywhr-Cijylt Hx Patient Social History Tobacco Use?: No Smoking Status: Former Smoker Substance use?: No Alcohol Use?: Yes Alcohol type: Wine Alcohol Frequency: Rarely (TING HERNANDEZ APRN) Immunizations Up To Date Tetanus Booster (TDap): Less than 5yrs Second COVID19 Vaccination Stevan: 04/22/21 COVID19 Vaccine Tram Inspector: IGLESIA (TING HERNANDEZ APRN) Seasonal Allergies Seasonal Allergies: No (TING HERNANDEZ APRN) Past Medical History Surgeries: Yes (GASTRIC BYPASS, HERNIA (x2), X 3, HEART CATH (-)) Abdominal, Cardiac, Section, Gallbladder Respiratory: Yes (REFUSES TO WEAR CPAP; PULMONARY HTN) Sleep Apnea, COPD Currently Using CPAP: No Cardiac: Yes (Hx Bradycardia as Asymptomatic Sick Sinus Syndrome) Atrial Fibrillation Neurological: No 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 Sexually Transmitted Disease: No Genitourinary: No Gastrointestinal: Yes (HERNIA REPAIR X 2; GASTRIC BYPASS) Abdominal Hernia Musculoskeletal: Yes Arthritis Endocrine: Yes (MORBID OBESITY) HEENT: Yes (GLASSES, PARTIAL DENTURES) Loss of Vision: Denies Hearing Impairment: Denies Cancer: No Psychosocial: Yes (HAS BEEN PRESCRIBED MEDS, BUT REFUSES TO TAKE--"AFRAID TO TAKE THEM" ) Anxiety, Depression Integumentary: Yes (WOUND INFECTIONS) Blood Disorders: No Adverse Reaction/Blood Tranf: No (N/A) (TING HERNANDEZ APRN) Family Medical History Alcoholism Arthritis Atherosclerosis Cancer G8 BROTHER Chest pain 19 FATHER Congenital heart disease 19 FATHER Congestive heart failure 19 MOTHER G8 BROTHER Diabetes mellitus Family history: Arthritis G8 BROTHER Family history: Cardiovascular disease 19 FATHER Family history: Diabetes mellitus 19 MOTHER G8 BROTHER G8 BROTHER G8 BROTHER G8 BROTHER Family history: Hypertension 19 FATHER 19 MOTHER Family history: Osteoporosis 19 MOTHER G8 BROTHER History of - respiratory disease G8 BROTHER Hypertension Myocardial infarction 19 FATHER Myocardial infarction 19 FATHER Prostate cancer G8 BROTHER Psychosocial problem Visual disorder No Pertinent Family Hx PAST SURGICAL HISTORY: - X 3--1977, 1978, 1979 -CHOLECYSTECTOMY -HERNIA REPAIR X 4--HAD MESH WITH 3RD REPAIR IN 2015--WOUND BECAME CHRONICALLY INFECTED, THEN 07/18/2019 HAD MESH REMOVAL, LYSIS OF ADHESIONS, SMALL BOWEL RESECTION AND RECURRENT VENTRAL HERNIA REPAIR-BY DR. DONNELLY -LAPAROSCOPIC ITZEL-EN-Y GASTRIC BYPASS 2008 -CARDIAC CATHS 2006 AND 2012--NON-OCCLUSIVE DISEASE, NO INTERVENTIO -STRESS TEST 06/2017-NO ISCHEMIC CHANGES (TING HERNANDEZ APRN) Physical Exam Vital Signs Vital Signs - First Documented 09/19/21 16:35 Temp 36.8 Pulse 55 Resp 20 B/P (MAP) 179/85 (116) Pulse Ox 97 O2 Delivery Room Air (KELECHI,SHRUTHI K DO) Vital Signs Capillary Refill : Less Than 3 Seconds (TING HERNANDEZ APRN) Height, Weight, BMI Height: 5'4.00" Weight: 280lbs. 0.0oz. 127.630888vo; 48.00 BMI Method:Stated General Appearance: No Apparent Distress, WD/WN Eyes: Bilateral Eye Normal Inspection, Bilateral Eye PERRL, Bilateral Eye EOMI Respiratory: No Accessory Muscle Use, No Respiratory Distress Gastrointestinal: Non Tender, Soft Neurologic/Psychiatric: Alert, Oriented x3 Skin: Normal Color, Warm/Dry (TING HERNANDEZ APRN) Procedures/Interventions Suture Size: 4-0 (TING HERNANDEZ APRN) Progress/Results/Core Measures Suspected Sepsis SIRS Temperature: Pulse: 55 Respiratory Rate: 20 Blood Pressure 179 /85 Mean: 116 (TING HERNANDEZ APRN) Results/Orders Lab Results Laboratory Tests Test 09/19/21 16:40 Range/Units Influenza Type A (RT-PCR) Detected H Not Detecte Influenza Type B (RT-PCR) Not Detected Not Detecte SARS-CoV-2 RNA (RT-PCR) Not Detected Not Detecte (SHRUTHI LORENZ ) Vital Signs/I&O 09/19/21 09/19/21 16:35 19:00 Temp 36.8 36.8 Pulse 55 60 Resp 20 20 B/P (MAP) 179/85 (116) 165/80 Pulse Ox 97 97 O2 Delivery Room Air Room Air (KELECHISHRUTHI Derek PHELPS) Vital Signs/I&O Capillary Refill : Less Than 3 Seconds (TING HERNANDEZ APRN) Blood Pressure Mean: 116 Departure Communication (Admissions) NAME: TAO KAUR MED REC#: [id number] PT STATUS: REG ER : 1955 PHYSICIAN: TING HERNANDEZ APRN ADMIT DATE: 09/19/21/ER Signed Date of Exam:09/19/21 CHEST 1 VIEW, AP/PA ONLY EXAMINATION: Chest radiograph, portable AP view. DATE: 09/19/2021 5:14 PM. INDICATION: 66-year-old female, cough. COMPARISON: January 29, 2021. FINDINGS: Heart size and mediastinal contours are unchanged. There is no identified pneumothorax. There is no large pleural effusion. There is no identified focal airspace consolidation. IMPRESSION: No identified acute cardiopulmonary abnormality. Dictated by: Dictated on workstation # [id number] Dict: 09/19/211715 Trans: 09/19/211718 [facility] [id number] Interpreted by: AUBREY SANCHEZ MD Electronically signed by: AUBREY SANCHEZ MD 09/19/211718 (TING HERNANDEZ APRN) Impression Primary Impression: Influenza A Disposition: 01 HOME, SELF-CARE Condition: Stable Departure-Patient Inst. Decision time for Depature: 18:33 (TING HERNANDEZ APRN) Referrals: [facility] [place] ([place]P) Primary Care Physician ALLISON CHEATHAM APRN (Family) Primary Care Physician Patient Instructions: Flu Add. Discharge Instructions: 1. return to Er for any concerns 2. follow u with your doctor next week 3. Medication as directed All discharge instructions reviewed with patient and/or family. Voiced understanding. Scripts Baloxavir Marboxil (Xofluza) 80 Mg Tablet 80 MG PO ONCE, #1 TAB . Prov: TING HERNANDEZ APRN 09/19/21 ATTENDING PHYSICIAN NOTE: I WAS PHYSICALLY PRESENT ER PHYSICIAN WHEN THIS PATIENT WAS IN ER, BUT I WAS NOT INVOLVED IN ANY DECISION MAKING OR ANY CARE OF THIS PATIENT. (SHRUTHI LORENZ DO) TING HERNANDEZ APRN Sep 19, 2021 18:00 SHRUTHI LORENZ DO Sep 22, 2021 04:20
[2021-09-19] MEDS ORDERED: BALO80TA PO ×2 (18:34→18:48)
[2021-09-19 19:00] VITALS: BP 165/80
== END 2021-09-19 19:00 | disposition home or self-care (01) ==
LOC: EDUNIT# 16:13 → ER 16:16
DX: J09.X2 Influenza due to identified novel influenza A virus with other respiratory manifestations (principal); I48.91 Unspecified atrial fibrillation; I27.20 Pulmonary hypertension, unspecified; F41.9 Anxiety disorder, unspecified; F32.9 Major depressive disorder, single episode, unspecified; E66.01 Morbid (severe) obesity due to excess calories; J44.9 Chronic obstructive pulmonary disease, unspecified; Z87.891 Personal history of nicotine dependence; Z20.822 Contact with and (suspected) exposure to COVID-19; Z79.01 Long term (current) use of anticoagulants; Z79.899 Other long term (current) drug therapy
CPT/HCPCS: 71045; 87636

== ENCOUNTER 2021-12-30 05:35 | Outpatient (CLI) | payer OTHER ==
[~2021-12-30] VITALS: Ht 160 cm; Wt 128.2 kg
[~2021-12-30 05:35] MED LIST changes: +BALO80TA PO
[2021-12-30] MEDS ORDERED: METO-333 PO (10:56)
[2021-12-30] MEDS ORDERED: DOCO200C4 PO (10:56)
[2021-12-30] MEDS ORDERED: ZINC50TA11 PO (10:56)
[2021-12-30] MEDS ORDERED: FERR325T18 PO (10:56)
== END 2021-12-30 11:15 | disposition home or self-care (01) ==
LOC: PREOP 05:35
PROVIDERS: ATTEND Surgery
DX: Z01.818 Encounter for other preprocedural examination (principal)

== ENCOUNTER → 2022-02-01 | Outpatient (CLI) | payer OTHER ==
[~2022-02-01] MED LIST changes: +DOCO200C4 PO; +FERR325T18 PO; +METO-333 PO; +ZINC50TA11 PO
== END ==
LOC: ORTHO 16:25
PROVIDERS: ATTEND Orthopaedic Surgery
DX: S42.202A Unspecified fracture of upper end of left humerus, initial encounter for closed fracture (principal); X58.XXXA Exposure to other specified factors, initial encounter
CPT/HCPCS: 99203

== ENCOUNTER → 2022-02-08 | Outpatient (CLI) | payer OTHER ==
--- NOTE | 2022-02-08 14:54 | Diagnostic Imaging Report ---
INDICATION: Fall with left shoulder pain. TIME OF EXAM: 11:27 AM. TECHNIQUE: Two views of the left shoulder were obtained. FINDINGS: There is a fracture involving the proximal humerus. There is a fracture through the surgical neck of the humerus with slight impaction. There is also a fracture involving the greater tuberosity. No dislocation is identified. The acromioclavicular alignment is normal. IMPRESSION: Proximal humerus fracture, as described. Dictated by: Dictated on workstation # [id number]
== END ==
LOC: ORTHO 11:11
PROVIDERS: ATTEND Orthopaedic Surgery
DX: S42.202A Unspecified fracture of upper end of left humerus, initial encounter for closed fracture (principal); W19.XXXA Unspecified fall, initial encounter
CPT/HCPCS: 73030; G0463; 99213

== ENCOUNTER → 2022-02-16 | Outpatient (CLI) | payer OTHER | END | disposition home or self-care (01) | LOC: PREOP 06:19 | PROVIDERS: ATTEND Surgery | DX: Z01.818 Encounter for other preprocedural examination (principal) ==

== ENCOUNTER → 2022-03-01 | Outpatient (CLI) | payer OTHER ==
--- NOTE | 2022-03-01 10:59 | Diagnostic Imaging Report ---
INDICATION: Left shoulder fracture followup. TECHNIQUE/COMPARISON: AP and transscapular views of the left shoulder were obtained and compared with 02/08/2022. FINDINGS: The comminuted left humeral head and neck fracture appears in stable alignment with further healing compared to the prior study with some early callus formation. There is no dislocation of the glenohumeral joint. The AC joint shows mild degenerative change. IMPRESSION: Stable alignment of the humeral head and neck fracture with signs of early healing. Dictated by: Dictated on workstation # [id number]
== END ==
LOC: ORTHO 10:20
PROVIDERS: ATTEND Orthopaedic Surgery
DX: S42.92XD Fracture of left shoulder girdle, part unspecified, subsequent encounter for fracture with routine healing (principal); X58.XXXD Exposure to other specified factors, subsequent encounter
CPT/HCPCS: 73030; G0463; 99213

== ENCOUNTER → 2022-04-05 | Outpatient (CLI) | payer OTHER ==
--- NOTE | 2022-04-05 11:14 | Diagnostic Imaging Report ---
INDICATION: Follow-up left humerus fracture. TIME OF EXAM: 10:47 a.m. COMPARISON: Correlation is made with prior shoulder radiograph from 03/01/2022. FINDINGS: There continues to be healing of the proximal left humerus fracture. There is increasing sclerosis and callus formation at the fracture site as well as blurring of the fracture lines which are now barely visible. Alignment is anatomic. Glenohumeral and acromioclavicular alignment are normal. Acromiohumeral space is normal. IMPRESSION: Continued healing of proximal left humerus fracture when compared with examination from one month earlier. Fracture lines are now barely visible. Dictated by: Dictated on workstation # [id number]
== END ==
LOC: ORTHO 10:38
PROVIDERS: ATTEND Orthopaedic Surgery
DX: S42.202D Unspecified fracture of upper end of left humerus, subsequent encounter for fracture with routine healing (principal); X58.XXXD Exposure to other specified factors, subsequent encounter
CPT/HCPCS: 73030; G0463; 99213

== ENCOUNTER → 2022-05-17 | Outpatient (CLI) | payer OTHER | LOC: ORTHO 14:38 | PROVIDERS: ATTEND Orthopaedic Surgery | DX: S42.202A Unspecified fracture of upper end of left humerus, initial encounter for closed fracture (principal); X58.XXXA Exposure to other specified factors, initial encounter; J44.9 Chronic obstructive pulmonary disease, unspecified; I10 Essential (primary) hypertension | CPT/HCPCS: 99213 ==

== ENCOUNTER → 2022-08-24 | Outpatient (CLI) | payer MEDICARE, OTHER ==
--- NOTE | 2022-08-24 10:17 | Diagnostic Imaging Report ---
EXAMINATION: CT abdomen and pelvis without contrast. TECHNIQUE: Multiple contiguous axial images were obtained through the abdomen and pelvis without the use of intravenous contrast. All CT scans use one or more of the following dose optimizing techniques: automated exposure control, MA and/or KvP adjustment based on patient size and exam type or iterative reconstruction. HISTORY: Abdominal mass. COMPARISON: 01/29/2021 FINDINGS: Limited views of the lower thorax are unremarkable. The liver is normal without focal lesion. There is no biliary ductal dilation. Gallbladder is absent. Pancreas is normal. Spleen is normal. Adrenal glands are normal. The kidneys are normal. There is no hydronephrosis. Urinary bladder is normal. Foreign body within the endometrial canal is likely from prior ablation. Bowel is normal in caliber without obstruction or inflammation. There is massive ventral abdominal hernia containing the majority of the large and small bowel. There has been a gastric bypass. No free fluid or air. No abdominal or pelvic lymphadenopathy. Aorta is normal in caliber without aneurysm. There are no suspicious osseus lesions. IMPRESSION: 1. Massive ventral abdominal hernia containing the majority of the large and small bowel. Dictated by: Dictated on workstation # [id number]
== END ==
LOC: RAD 09:00
PROVIDERS: ATTEND Surgery
DX: K43.9 Ventral hernia without obstruction or gangrene (principal)
CPT/HCPCS: 74176

== ENCOUNTER → 2023-02-16 | Outpatient (CLI) | payer MEDICARE, OTHER | LOC: CARD 13:18 | PROVIDERS: ATTEND Internal Medicine Cardiovascular Disease | DX: I08.1 Rheumatic disorders of both mitral and tricuspid valves (principal); I11.9 Hypertensive heart disease without heart failure | CPT/HCPCS: 93306 ==

== ENCOUNTER 2023-09-03 09:29 | Emergency (ER) | payer MEDICARE, OTHER ==
[2023-09-03 09:59] LABS: MEAN PLATELET VOLUME 10.8 fL (9.0-12.2)
--- NOTE | 2023-09-03 10:00 | ED General ---
General Chief Complaint: Head/Cervical Problems Stated Complaint: HEAD PAIN/IRR LAB RESULTS Nursing Triage Note: PT AMB TO RM 10 PT STATES WAS SENT TO ED BY [facility] FOR INTERMITTENT SEVERE VALLEJO FOR APPROX 1 MONTH. PT STATES WAS ALSO TOLD LAB WORK HAD CONCERNS AND TO COME TO ED. PT CURRENTLY DENIES VALLEJO Source of Information: Patient, Family, Other (Phone report from clinic) Exam Limitations: No Limitations History of Present Illness Date Seen by Provider: Sep 03, 2023 Time Seen by Provider: 09:38 Initial Comments Labs from the clinic on September 02 showed abnormalities including WBC count of 23.5, hemoglobin of 11.2, and a platelet count of 2039 (2,039,000). Allergies and Home Medications Allergies Coded Allergies: No Known Drug Allergies (Unverified , 12/26/20) Patient Home Medication List Home Medication List Reviewed: Yes Apixaban (Eliquis) 5 Mg Tablet, 5 MG PO BID Prescribed by: SHRUTHI LORENZ on 12/26/202252 Ascorbic Acid (Vitamin C) 500 Mg Tablet, 500 MG PO DAILY PRN for FOR COLDS, (Reported) Entered as Reported by: BONG BENITEZ on 06/30/17932 Biotin (Biotin) 10 Mg Tablet, 10 MG PO DAILY, (Reported) Entered as Reported by: BONG BENITEZ on 06/30/17932 Cholecalciferol (Vitamin D3) (Vitamin D3) 5,000 Unit Tablet, 5,000 UNIT PO DAILY, (Reported) Entered as Reported by: VIANEY MENDEZ on 06/01/16 1639 Diltiazem HCl (Cardizem Cd) 120 Mg Cap.er.24h, 120 MG PO DAILY Prescribed by: SHRUTHI LOREZN on 12/26/20 225 Docosahexanoic Acid ( Dha) 200 Mg Capsule, 200 MG PO DAILY, (Reported) Entered as Reported by: NARA PETER on 12/30/21 105 Ferrous Sulfate (Ferrous Sulfate) 325 Mg Tablet, 325 MG PO DAILY, (Reported) Entered as Reported by: NARA PETER on 12/30/21 1056 Flecainide Acetate (Flecainide Acetate) 100 Mg Tablet, 50 MG PO BID Prescribed by: JOSELUIS ROSAS on 01/21/21 0610 Metoprolol Tartrate (Metoprolol Tartrate) 25 Mg Tablet, 25 MG PO DAILY, (Reported) Entered as Reported by: NARA PETER on 12/30/21 1056 Zinc Gluconate (Zinc) 50 Mg Tablet, 50 MG PO DAILY, (Reported) Entered as Reported by: NARA PETER on 12/30/21 1056 Past Iavhrnz-Fajlvy-Qpaqvc Hx Patient Social History Tobacco Use?: No Substance use?: Yes Substance type: Marijuana Additional substance use comme: USES GUMMIES TO SLEEP RARELY Substance frequency: Rarely Alcohol Use?: No Pt feels they are or have been: No Immunizations Up To Date Tetanus Booster (TDap): Less than 5yrs First/Initial COVID19 Vaccinat: 04/22/21 Second COVID19 Vaccination Stevan: 05/23/21 Third COVID19 Vaccination Date: NO Seasonal Allergies Seasonal Allergies: No Past Medical History Surgery/Hospitalization HX: HTN, A-FIB, GASTRIC BYPASS, ANKLE SURG, WRIST SURG. 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 Sexually Transmitted Disease: No Genitourinary: No Gastrointestinal: Yes (HERNIA REPAIR X 2; GASTRIC BYPASS) Abdominal Hernia Musculoskeletal: Yes Arthritis Endocrine: Yes (MORBID OBESITY) HEENT: Yes (GLASSES, PARTIAL DENTURES) Loss of Vision: Denies Hearing Impairment: Denies Cancer: No Psychosocial: Yes (HAS BEEN PRESCRIBED MEDS, BUT REFUSES TO TAKE--"AFRAID TO TAKE THEM" ) Anxiety, Depression Integumentary: Yes (WOUND INFECTIONS) Blood Disorders: No Adverse Reaction/Blood Tranf: No (N/A) Family Medical History Alcoholism Arthritis Atherosclerosis Cancer G8 BROTHER Chest pain 19 FATHER Congenital heart disease 19 FATHER Congestive heart failure 19 MOTHER G8 BROTHER Diabetes mellitus Family history: Arthritis G8 BROTHER Family history: Cardiovascular disease 19 FATHER Family history: Diabetes mellitus 19 MOTHER G8 BROTHER G8 BROTHER G8 BROTHER G8 BROTHER Family history: Hypertension 19 FATHER 19 MOTHER Family history: Osteoporosis 19 MOTHER G8 BROTHER History of - respiratory disease G8 BROTHER Hypertension Myocardial infarction 19 FATHER Myocardial infarction 19 FATHER Prostate cancer G8 BROTHER Psychosocial problem Visual disorder No Pertinent Family Hx PAST SURGICAL HISTORY: - X 3--1978, 1979, 1980 -CHOLECYSTECTOMY -HERNIA REPAIR X 4--HAD MESH WITH 3RD REPAIR IN 2016--WOUND BECAME CHRONICALLY INFECTED, THEN 07/18/2019 HAD MESH REMOVAL, LYSIS OF ADHESIONS, SMALL BOWEL RESECTION AND RECURRENT VENTRAL HERNIA REPAIR-BY DR. DONNELLY -LAPAROSCOPIC ITZEL-EN-Y GASTRIC BYPASS 2008 -CARDIAC CATHS 2006 AND 2012--NON-OCCLUSIVE DISEASE, NO INTERVENTIO -STRESS TEST 06/2017-NO ISCHEMIC CHANGES Physical Exam Vital Signs Vital Signs - First Documented 09/03/23 09:30 Temp 35.6 Pulse 48 Resp 14 B/P (MAP) 119/93 (102) Pulse Ox 96 O2 Delivery Room Air Capillary Refill : Less Than 3 Seconds Height, Weight, BMI Height: 5'4.00" Weight: 280lbs. 0.0oz. 127.838273xv; 50.07 BMI Method:Stated Procedures/Interventions Suture Size: 4-0 Progress/Results/Core Measures Suspected Sepsis SIRS Temperature: Pulse: 48 Respiratory Rate: 14 Laboratory Tests 09/03/23 09:45: White Blood Count 22.8H Blood Pressure 119 /93 Mean: 102 Laboratory Tests 09/03/23 09:45: Creatinine 0.65, Platelet Count 1695*H, Total Bilirubin 0.4 Results/Orders Lab Results Laboratory Tests Test 09/03/23 09:45 09/03/23 12:25 Range/Units White Blood Count 22.8 H 4.3-11.0 10^3/uL Red Blood Count 4.23 3.80-5.11 10^6/uL Hemoglobin 12.0 11.5-16.0 g/dL Hematocrit 38 35-52 % Mean Corpuscular Volume 91 80-99 fL Mean Corpuscular Hemoglobin 28 25-34 pg Mean Corpuscular Hemoglobin Concent 31 L 32-36 g/dL Red Cell Distribution Width 18.3 H 10.0-14.5 % Platelet Count 1695 *H 130-400 10^3/uL Mean Platelet Volume 10.8 9.0-12.2 fL Immature Granulocyte % (Auto) 4 % Neutrophils (%) (Auto) 73 42-75 % Lymphocytes (%) (Auto) 11 L 12-44 % Monocytes (%) (Auto) 2 0-12 % Eosinophils (%) (Auto) 5 0-10 % Basophils (%) (Auto) 6 0-10 % Neutrophils # (Auto) 16.7 H 1.8-7.8 10^3/uL Lymphocytes # (Auto) 2.4 1.0-4.0 10^3/uL Monocytes # (Auto) 0.4 0.0-1.0 10^3/uL Eosinophils # (Auto) 1.1 H 0.0-0.3 10^3/uL Basophils # (Auto) 1.4 H 0.0-0.1 10^3/uL Immature Granulocyte # (Auto) 0.8 H 0.0-0.1 10^3/uL Neutrophils % (Manual) 68 % Lymphocytes % (Manual) 10 % Monocytes % (Manual) 2 % Eosinophils % (Manual) 10 % Basophils % (Manual) 6 % Band Neutrophils 0 % Reactive Lymphocytes 4 % Percent Immature Platelet Fraction 8.8 H 0.0-7.6 % Anisocytosis MODERATE Erythrocyte Sedimentation Rate 5 0-30 MM/HR Sodium Level 145 135-145 MMOL/L Potassium Level 3.5 L 3.6-5.0 MMOL/L Chloride Level 112 H 98-107 MMOL/L Carbon Dioxide Level 22 21-32 MMOL/L Anion Gap 11 5-14 MMOL/L Blood Urea Nitrogen 9 7-18 MG/DL Creatinine 0.65 0.60-1.30 MG/DL Estimat Glomerular Filtration Rate 97 BUN/Creatinine Ratio 14 Glucose Level 86 70-105 MG/DL Calcium Level 9.4 8.5-10.1 MG/DL Corrected Calcium 9.6 8.5-10.1 MG/DL Magnesium Level 2.1 1.6-2.4 MG/DL Total Bilirubin 0.4 0.1-1.0 MG/DL Aspartate Amino Transf (AST/SGOT) 19 5-34 U/L Alanine Aminotransferase (ALT/SGPT) 19 0-55 U/L Alkaline Phosphatase 76 40-136 U/L C-Reactive Protein High Sensitivity 0.54 H 0.00-0.50 MG/DL Total Protein 6.7 6.4-8.2 GM/DL Albumin 3.7 3.2-4.5 GM/DL My Orders Orders - RON SALMON MD Cbc And Automated Diff (09/03/23 09:37) Comprehensive Metabolic Panel (09/03/23 09:37) Hs C Reactive Protein (09/03/23 09:37) Magnesium (09/03/23 09:37) Erythrocyte Sedimentation Rate (09/03/23 09:37) Ed Iv/Invasive Line Start (09/03/23 09:37) Ct Head Wo (09/03/23 09:37) Manual Differential (09/03/23 09:45) Jak2 Mutation (V617f) Analysis (09/03/23 12:12) Aspirin Chewable Tablet (Aspirin Chewabl (09/03/23 12:45) Medications Given in ED Current Medications Medications Dose Ordered Sig/Garth Route Start Time Stop Time Status Last Admin Dose Admin Aspirin 324 mg ONCE ONCE PO 09/03/23 12:45 09/03/23 12:46 DC 09/03/23 12:59 324 MG Vital Signs/I&O 09/03/23 09/03/23 09:30 13:03 Temp 35.6 Pulse 48 90 Resp 14 18 B/P (MAP) 119/93 (102) 110/77 Pulse Ox 96 99 O2 Delivery Room Air Capillary Refill : Less Than 3 Seconds Blood Pressure Mean: 102 Departure Impression Primary Impression: Leukocytosis Qualified Codes: D72.829 - Elevated white blood cell count, unspecified Additional Impressions: Thrombocytosis Confusion Recurrent headache Sinus bradycardia Disposition: 01 HOME, SELF-CARE Condition: Stable Departure-Patient Inst. Decision time for Depature: 12:46 Referrals: [facility] (PCP/Family) Primary Care Physician JOYCELYN BENEDICT MD Patient Instructions: Thrombocytosis Add. Discharge Instructions: Your lab work demonstrates elevated white blood cell counts (leukocytosis) and elevated platelet counts (thrombocytosis). You need to have further workup to evaluate the cause of these blood abnormalities. Please contact the [facility] first thing tomorrow morning to arrange an appointment with Dr. Nino Benedict. Please explain to the employee answering the phone that Dr. Oneill wants to see you tomorrow, Monday, September 04 for this ER follow-up visit. Feel free to read these discharge instructions directly to the employee. Because these elevated cell counts make your blood thick, please continue taking Eliquis and add aspirin 81 mg daily. Continue this until otherwise instructed by your doctor. Your heart rate is slow (bradycardia) today which may be causing your dizziness. Please skip your dose of diltiazem (Cardizem) today. If your heart rate increases above 60 consistently, you may take your dose today. Contact Dr. Rosas first thing tomorrow morning to ask for further instructions regarding your heart rate and use of diltiazem (Cardizem). Continue taking all of your other medications. Please also call your primary care provider and schedule a follow-up appointment as soon as possible. At that appointment, discuss potentially obtaining an MRI of your brain to further evaluate your confusion. Return to the emergency room if you have worsening symptoms despite following these instructions. All discharge instructions reviewed with patient and/or family. Voiced understanding. Copy Copies To 1: JOYCELYN BENEDICT MD Copies To 2: [facility]/RON PRICE MD Sep 03, 2023 10:00
[2023-09-03 10:01] LABS: BASOPHILS # (AUTO) 1.4 10^3/uL (0.0-0.1); BASOPHILS % (AUTO) 6 % (0-10); EOSINOPHILS # (AUTO) 1.1 10^3/uL (0.0-0.3); EOSINOPHILS % (AUTO) 5 % (0-10); HEMATOCRIT 38 % (35-52); LYMPHOCYTES # (AUTO) 2.4 10^3/uL (1.0-4.0); LYMPHOCYTES % (AUTO) 11 % (12-44); MEAN CORPUSCULAR HEMOGLOBIN 28 pg (25-34); MEAN CORPUSCULAR HGB CONC 31 g/dL (32-36); MEAN CORPUSCULAR VOLUME 91 fL (80-99); MONOCYTES # (AUTO) 0.4 10^3/uL (0.0-1.0); MONOCYTES % (AUTO) 2 % (0-12); NEUTROPHILS # (AUTO) 16.7 10^3/uL (1.8-7.8); NEUTROPHILS % (AUTO) 73 % (42-75); WHITE BLOOD COUNT 22.8 10^3/uL (4.3-11.0)
[2023-09-03 10:13] LABS: ALBUMIN 3.7 GM/DL (3.2-4.5); PLATELET COUNT 1695 10^3/uL (130-400)
[2023-09-03 10:14] LABS: POTASSIUM 3.5 MMOL/L (3.6-5.0)
[2023-09-03 10:15] LABS: CALCIUM 9.4 MG/DL (8.5-10.1)
[2023-09-03 10:16] LABS: TOTAL PROTEIN 6.7 GM/DL (6.4-8.2)
[2023-09-03 10:18] LABS: BILIRUBIN,TOTAL 0.4 MG/DL (0.1-1.0)
[2023-09-03 10:20] LABS: CREATININE SERUM 0.65 MG/DL (0.60-1.30)
[2023-09-03 10:23] LABS: MAGNESIUM 2.1 MG/DL (1.6-2.4)
--- NOTE | 2023-09-03 10:25 | Diagnostic Imaging Report ---
EXAMINATION: CT head without contrast. TECHNIQUE: Multiple contiguous axial images were obtained through the brain without the use of intravenous contrast. All CT scans use one or more of the following dose optimizing techniques: automated exposure control, MA and/or KvP adjustment based on patient size and exam type or iterative reconstruction. HISTORY: Headache, confusion COMPARISON: None available. FINDINGS: The edwards-white matter differentiation is normal. No mass effect or midline shift. The ventricles are normal in size and configuration. Basilar cisterns are patent. There are no intra- or extra-axial fluid collections. There is no intracranial hemorrhage. The orbits are normal. Paranasal sinuses are normal. Mastoid air cells are clear. No soft tissue abnormality is seen. No osseus lesions or fractures are seen. IMPRESSION: 1. No acute intracranial abnormality. Dictated by: Dictated on workstation # [id number]
[2023-09-03 10:31] LABS: ANISOCYTOSIS MODERATE; BAND NEUTROPHILS 0 %; BASOPHILS % (MANUAL) 6 %; EOSINOPHILS % (MANUAL) 10 %; LYMPHOCYTES % (MANUAL) 10 %; MONOCYTES % (MANUAL) 2 %; NEUTROPHILS % (MANUAL) 68 %; REACTIVE LYMPHOCYTES 4 %
[2023-09-03 10:32] LABS: ERYTHROCYTE SEDIMENTATION RATE 5 MM/HR (0-30)
[2023-09-03] MEDS ORDERED: ASPIRIN 81 MG CHEWABLE TABLET PO ONE (12:45)
[2023-09-03 13:03] VITALS: BP 110/77
== END 2023-09-03 13:00 | disposition home or self-care (01) ==
LOC: EDUNIT# 09:29 → ER 09:31
DX: D72.829 Elevated white blood cell count, unspecified (principal); D75.839 Thrombocytosis, unspecified; R41.0 Disorientation, unspecified; R00.1 Bradycardia, unspecified; E66.01 Morbid (severe) obesity due to excess calories; Z68.43 Body mass index [BMI] 50.0-59.9, adult
CPT/HCPCS: 36415; 70450; 80053; 81270; 83735; 85007; 85027; 85652; 86141